=== PATIENT | female | born 1970 | race Caucasian/White ===

== ENCOUNTER → 2016-09-04 | Outpatient (CLI) | payer OTHER ==
--- NOTE | 2016-09-04 16:57 | CT ---
EXAMINATION TYPE: CT abdomen w con DATE OF EXAM: 09/04/2016 4:26 PM COMPARISON: NONE HISTORY: Patient complains of RUQ pain. CT DLP: 890.2 mGycm Automated exposure control for dose reduction was used. TECHNIQUE: Helical acquisition of images was performed from the lung bases through the top of iliac crest to include entire abdomen. CONTRAST: Performed with Oral Contrast and with IV Contrast, patient injected with 100 mL of Omnipaque 300. FINDINGS: LUNG BASES: Normal LIVER/GB: Liver is unremarkable. Gallbladder surgically absent PANCREAS: No significant abnormality is seen. SPLEEN: No significant abnormality is seen. ADRENALS: No significant abnormality is seen. KIDNEYS: No significant abnormality is seen. BOWEL: No significant abnormality is seen. There are some loops of bowel lacking oral contrast limit ing their evaluation. The appendix is not identified. LYMPH NODES: No abnormal adenopathy. OSSEOUS STRUCTURES: No significant abnormality is seen. IMPRESSION: UNREMARKABLE CT ABDOMEN
== END | disposition home or self-care (01) ==
LOC: RADCTMAIN 15:16
PROVIDERS: ATTEND Family Medicine
DX: R10.11 Right upper quadrant pain (principal)
CPT/HCPCS: 74160; Q9967

== ENCOUNTER 2018-01-02 12:37 | Observation (INO) | payer OTHER ==
[2018-01-02 13:06] VITALS: RESP 18
--- NOTE | 2018-01-02 14:19 | ED ---
General Adult HPI <Ezra Espinoza - Last Filed: 01/02/18 18:17> - General Source: patient, RN notes reviewed Mode of arrival: ambulatory Limitations: no limitations <Jhon Rodriguez - Last Filed: 01/02/18 18:24> - General Chief complaint: Shortness of Breath Stated complaint: SOB Time Seen by Provider: 01/02/18 13:32 - History of Present Illness Initial comments: 47-year-old female presents to the emergency department for a chief complaint of shortness of breath and bilateral leg swelling 2 days. Patient states she was on a diuretic for a couple weeks but it made her sick so she stopped that about a week ago. Patient states she has been short of breath before but this is worse so she wanted to get checked out. Patient has not been diagnosed with any cardiac diseases. Patient states that shortness of breath is exacerbated with exertion. Patient denies any chest pain or abdominal pain. Patient has an appointment with her primary care doctor in 4 days for this. Patient has no other complaints at this time including shortness of breath, chest pain, abdominal pain, nausea or vomiting, headache, or visual changes. (Jhon Rodriguez) - Related Data Home Medications Medication Instructions Recorded Confirmed Cyanocobalamin (Vitamin B-12) 1,000 mcg PO DAILY 01/02/18 01/02/18 [Vitamin B-12] Levothyroxine Sodium [Synthroid] 125 mcg PO DAILY 01/02/18 01/02/18 Omeprazole 20 mg PO BID 01/02/18 01/02/18 Sertraline [Zoloft] 100 mg PO HS 01/02/18 01/02/18 lamoTRIgine [lamoTRIgine ER] 50 mg PO HS 01/02/18 01/02/18 Allergies Allergy/AdvReac Type Severity Reaction Status Date / Time amoxicillin Allergy Rash/Hives Verified 01/02/18 14:12 levofloxacin [From Levaquin] Allergy Rash/Hives Verified 01/02/18 14:12 Penicillins Allergy Rash/Hives Verified 01/02/18 14:12 Review of Systems ROS Other: All systems not noted in ROS Statement are negative. <Ezra Espinoza - Last Filed: 01/02/18 18:17> ROS Other: All systems not noted in ROS Statement are negative. <Jhon Rodriguez - Last Filed: 01/02/18 18:24> ROS Statement: Those systems with pertinent positive or pertinent negative responses have been documented in the HPI. Past Medical History Past Medical History: GERD/Reflux, Thyroid Disorder History of Any Multi-Drug Resistant Organisms: None Reported Past Surgical History: Cholecystectomy, Orthopedic Surgery, Tubal Ligation Past Psychological History: Anxiety, Depression Smoking Status: Never smoker Past Alcohol Use History: None Reported Past Drug Use History: None Reported <Jhon Rodriguez - Last Filed: 01/02/18 18:24> General Exam Limitations: no limitations General appearance: alert, in no apparent distress Head exam: Present: atraumatic, normocephalic, normal inspection Eye exam: Present: normal appearance, PERRL, EOMI. Absent: scleral icterus, conjunctival injection, periorbital swelling ENT exam: Present: normal exam, mucous membranes moist Neck exam: Present: normal inspection, full ROM. Absent: tenderness, meningismus, lymphadenopathy Respiratory exam: Present: normal lung sounds bilaterally. Absent: respiratory distress, wheezes, rales, rhonchi, stridor Cardiovascular Exam: Present: regular rate, normal rhythm, normal heart sounds. Absent: systolic murmur, diastolic murmur, rubs, gallop, clicks Extremities exam: Present: other (Pedal pulse 2+ in the lower extremities bilaterally. Pitting edema 1+ in lower extremities bilaterally. No redness or cellulitic changes.). Absent: calf tenderness (No tenderness in the calves. No redness swelling or warmth in the calves.) <Jhon Rodriguez - Last Filed: 01/02/18 18:24> Vital Signs 01/02/18 01/02/18 01/02/18 13:03 16:06 17:23 Temperature 98.4 F Pulse Rate 64 48 L 61 Respiratory 18 18 18 Rate Blood Pressure 167/97 139/74 150/70 O2 Sat by Pulse 100 99 99 Oximetry EKG Findings - EKG Comments: EKG Findings:: Sinus bradycardia cardiac. Ventricular rate 53. MO interval 122. QRS 86. <Jhon Rodriguez - Last Filed: 01/02/18 18:24> Medical Decision Making - Lab Data Result diagrams: 01/02/18 15:15 01/02/18 15:15 <Ezra Espinoza - Last Filed: 01/02/18 18:17> - Lab Data Result diagrams: 01/02/18 15:15 01/02/18 15:15 <Jhon Rodriguez - Last Filed: 01/02/18 18:24> - Medical Decision Making Patient reevaluated by myself, Dr. Espinoza. Chart and results reviewed. Patient resting comfortably in bed. Patient states she has been having exertional dyspnea for the past month, worse the past few days. Patient states she is having minimal chest pressure. Patient updated on results and plan. Case was discussed in detail with Dr. Hurst, who will admit for Dr. Duncan. (Ezra Espinoza) 47-year-old female presents to the emergency department for a chief complaint of shortness of breath and bilateral leg swelling for 2 days. Patient states she has had similar occurrences in the past and was put on a diuretic but stopped that over a week ago due to it making her nauseous. Patient does not wear compression stockings. Patient states the shortness of breath is with exertion. Patient denies chest pain or abdominal pain. Pulse rate 61, respiratory rate 18, blood pressure 150/70 and patient is 99% on room air. CBC and CMP unremarkable. Cardiac panel within normal limits. D-dimer 0.46. Chest x-ray shows cardiac silhouette size and upper limits of normal. No acute cardiopulmonary process. No focal airspace opacity, pleural effusion, or pneumothorax seen. On reexamination patient is continuing to complain of a minimal pressure on her chest. She will be admitted and monitored in the hospital. (Jhon Rodriguez) - Lab Data Lab Results 01/02/18 01/02/18 01/02/18 Range/Units 15:00 15:15 15:15 WBC 5.7 (3.8-10.6) k/uL RBC 4.56 (3.80-5.40) m/uL Hgb 10.6 L (11.4-16.0) gm/dL Hct 33.8 L (34.0-46.0) % MCV 74.0 L (80.0-100.0) fL MCH 23.3 L (25.0-35.0) pg MCHC 31.5 (31.0-37.0) g/dL RDW 15.2 (11.5-15.5) % Plt Count 346 (150-450) k/uL Neutrophils % 57 % Lymphocytes % 32 % Monocytes % 6 % Eosinophils % 3 % Basophils % 1 % Neutrophils # 3.3 (1.3-7.7) k/uL Lymphocytes # 1.8 (1.0-4.8) k/uL Monocytes # 0.3 (0-1.0) k/uL Eosinophils # 0.2 (0-0.7) k/uL Basophils # 0.0 (0-0.2) k/uL Hypochromasia Moderate Microcytosis Slight PT (9.0-12.0) sec INR (<1.2) APTT (22.0-30.0) sec D-Dimer 0.46 (<0.60) mg/L FEU Sodium (137-145) mmol/L Potassium (3.5-5.1) mmol/L Chloride (98-107) mmol/L Carbon Dioxide (22-30) mmol/L Anion Gap mmol/L BUN (7-17) mg/dL Creatinine (0.52-1.04) mg/dL Est GFR (CKD-EPI)AfAm (>60 ml/min/1.73 sqM) Est GFR (CKD-EPI)NonAf (>60 ml/min/1.73 sqM) Glucose (74-99) mg/dL Calcium (8.4-10.2) mg/dL Total Bilirubin (0.2-1.3) mg/dL AST (14-36) U/L ALT (9-52) U/L Alkaline Phosphatase (38-126) U/L Total Creatine Kinase 160 H (30-135) U/L CK-MB (CK-2) 1.7 (0.0-2.4) ng/mL CK-MB (CK-2) Rel Index 1.1 Troponin I <0.012 (0.000-0.034) ng/mL NT-Pro-B Natriuret Pep pg/mL Total Protein (6.3-8.2) g/dL Albumin (3.5-5.0) g/dL 01/02/18 01/02/18 01/02/18 Range/Units 15:15 15:15 15:15 WBC (3.8-10.6) k/uL RBC (3.80-5.40) m/uL Hgb (11.4-16.0) gm/dL Hct (34.0-46.0) % MCV (80.0-100.0) fL MCH (25.0-35.0) pg MCHC (31.0-37.0) g/dL RDW (11.5-15.5) % Plt Count (150-450) k/uL Neutrophils % % Lymphocytes % % Monocytes % % Eosinophils % % Basophils % % Neutrophils # (1.3-7.7) k/uL Lymphocytes # (1.0-4.8) k/uL Monocytes # (0-1.0) k/uL Eosinophils # (0-0.7) k/uL Basophils # (0-0.2) k/uL Hypochromasia Microcytosis PT 9.7 (9.0-12.0) sec INR 1.0 (<1.2) APTT 24.5 (22.0-30.0) sec D-Dimer (<0.60) mg/L FEU Sodium 141 (137-145) mmol/L Potassium 3.7 (3.5-5.1) mmol/L Chloride 105 (98-107) mmol/L Carbon Dioxide 26 (22-30) mmol/L Anion Gap 10 mmol/L BUN 15 (7-17) mg/dL Creatinine 0.65 (0.52-1.04) mg/dL Est GFR (CKD-EPI)AfAm >90 (>60 ml/min/1.73 sqM) Est GFR (CKD-EPI)NonAf >90 (>60 ml/min/1.73 sqM) Glucose 88 (74-99) mg/dL Calcium 8.7 (8.4-10.2) mg/dL Total Bilirubin 0.5 (0.2-1.3) mg/dL AST 32 (14-36) U/L ALT 38 (9-52) U/L Alkaline Phosphatase 104 (38-126) U/L Total Creatine Kinase (30-135) U/L CK-MB (CK-2) (0.0-2.4) ng/mL CK-MB (CK-2) Rel Index Troponin I (0.000-0.034) ng/mL NT-Pro-B Natriuret Pep 572 pg/mL Total Protein 6.8 (6.3-8.2) g/dL Albumin 3.9 (3.5-5.0) g/dL Disposition <Ezra Espinoza - Last Filed: 01/02/18 18:17> Is patient prescribed a controlled substance at d/c from ED?: No Time of Disposition: 18:24 <Jhon Rodriguez - Last Filed: 01/02/18 18:24> Clinical Impression: Shortness of breath, Chest pressure Disposition: HOME SELF-CARE Condition: Good Referrals: Pato Duncan MD [Primary Care Provider] - 1-2 days
--- NOTE | 2018-01-02 15:29 | XR ---
EXAMINATION TYPE: XR chest 2V DATE OF EXAM: 01/02/2018 COMPARISON: NONE HISTORY: Shortness of breath. TECHNIQUE: Frontal and lateral views of the chest are obtained. FINDINGS: There is no focal air space opacity, pleural effusion, or pneumothorax seen. The cardiac silhouette size is upper limits of normal. The osseous structures are intact. Minimal multilevel de generative changes of the thoracic spine are noted. IMPRESSION: No acute cardiopulmonary process.
[2018-01-02 15:30] LABS: Basophils % (A) 1 %; Eosinophils # (A) 0.2 k/uL (0-0.7); Eosinophils % (A) 3 %; HCT 33.8 % (34.0-46.0); HGB 10.6 gm/dL (11.4-16.0); Hypochromasia Moderate; Lymphocytes # (A) 1.8 k/uL (1.0-4.8); Lymphocytes % (A) 32 %; MCH 23.3 pg (25.0-35.0); MCHC 31.5 g/dL (31.0-37.0); Mean Platelet Volume 6.9; Microcytosis Slight; Monocytes # (A) 0.3 k/uL (0-1.0); Monocytes % (A) 6 %; Neutrophils # (A) 3.3 k/uL (1.3-7.7); Neutrophils % (A) 57 %; Platelet Count 346 k/uL (150-450); RBC 4.56 m/uL (3.80-5.40); RDW 15.2 % (11.5-15.5); WBC 5.7 k/uL (3.8-10.6)
[2018-01-02 15:38] LABS: Partial Thromboplastin Time 24.5 sec (22.0-30.0); Prothrombin Time 9.7 sec (9.0-12.0)
[2018-01-02 15:42] LABS: ALT 38 U/L (9-52); AST 32 U/L (14-36); Albumin 3.9 g/dL (3.5-5.0); Alkaline Phosphatase 104 U/L (38-126); Anion Gap 10 mmol/L; Blood Urea Nitrogen 15 mg/dL (7-17); Calcium 8.7 mg/dL (8.4-10.2); Carbon Dioxide 26 mmol/L (22-30); Chloride 105 mmol/L (98-107); Glucose 88 mg/dL (74-99); Potassium 3.7 mmol/L (3.5-5.1); Sodium 141 mmol/L (137-145); Total Bilirubin 0.5 mg/dL (0.2-1.3); Total Protein 6.8 g/dL (6.3-8.2)
[2018-01-02 15:51] LABS: Creatine Kinase 160 U/L (30-135)
[2018-01-02 16:04] LABS: Creatine Kinase MB 1.7 ng/mL (0.0-2.4); Troponin I <0.012 ng/mL (0.000-0.034)
[2018-01-02] MEDS ORDERED: NITROGLYCERIN SL TABS 0.4 MG TAB SUBLINGUAL PRN (18:13)
[2018-01-02] MEDS ORDERED: ASPIRIN 81 MG PO STA (18:13)
[2018-01-02] MEDS ORDERED: IBUPROFEN 600 MG TAB PO STA (18:21)
[2018-01-02 20:31] VITALS: BMI 41.8
[2018-01-02] MEDS ORDERED: lamoTRIgine 25 MG TAB PO SCH (21:00)
[2018-01-02] MEDS ORDERED: SERTRALINE 100 MG TAB PO SCH (21:00)
[2018-01-02 22:08] LABS: Creatine Kinase 126 U/L (30-135)
[2018-01-02] MEDS: PANTOPRAZOLE 40 MG TABLET PO SCH (22:19)
[2018-01-02 22:20] LABS: Creatine Kinase MB 1.5 ng/mL (0.0-2.4); Troponin I <0.012 ng/mL (0.000-0.034)
[2018-01-03 04:23] LABS: Cholesterol 151 mg/dL (<200); HDL Cholesterol 44 mg/dL (40-60); LDL Cholesterol,Calculated 84 mg/dL (0-99); Triglycerides 113 mg/dL (<150)
[2018-01-03 04:36] LABS: Creatine Kinase 105 U/L (30-135)
[2018-01-03 04:48] LABS: Troponin I <0.012 ng/mL (0.000-0.034)
[2018-01-03] MEDS ORDERED: LEVOTHYROXINE 125 MCG TAB PO SCH (06:30)
[2018-01-03] MEDS ORDERED: CYANOCOBALAMIN 500 MCG TAB PO SCH (09:00)
[2018-01-03] MEDS ORDERED: ASPIRIN 325 MG TAB PO SCH (09:00)
--- NOTE | 2018-01-03 09:57 | P.CRDCN ---
History of Present Illness History of present illness: 47 year old female presenting with shortness of breath for the last several days. The story is quite weak. She feels puffy all over and she was treated with Lasix which she did not tolerate. She also complains of a vague discomfort in the chest midsternal fairly constant. Nonradiating Review of systems: No fever chills or rigors, no cough, phlegm or expectoration , no nausea, vomiting or diarrhea, no hematuria, dysuria, no musculoskeletal complaints, no strokes or seizures, no skin lesions. Home medications include levothyroxine and omeprazole Zoloft lamotrigine and B12 ALLERGIES to penicillin and Levaquin Past medical history of hypothyroidism and GERD, depression, admits to salt indiscretion Past surgical history cholecystectomy orthopedic surgery and tubal ligation Social history. She denies history of smoking negative and product use and alcohol use Family history of hypertension On examination she is afebrile heart rate in the 50s and 60s blood pressure 116/ 67 mmHg but when she came in her blood pressure was consistently elevated for quite a while Initially her blood pressure was 150/70 mmHg 147/58 mmHg Heart sounds S1 and S2 are normal Breath sounds are clear no rhonchi no crackles No JVD thymidylate carotid bruits. She states she has a nodule in the neck which is being evaluated Abdomen soft nontender No lower extremity edema Patient is lying comfortably in bed no distress of any kind Twelve-lead ECG shows sinus rhythm 53 beats a minute normal ST segments Chest x-ray is normal Labs are reviewed she is anemic 10.6, d-dimer is normal Electrolytes are normal Cardiac enzymes are normal LDL 84 Impression Patient presenting with shortness of breath on exertion, NT proBNP 572, atypical chest discomfort feeling puffy all over initial blood pressures were elevated cardiac enzymes and EKG were normal, d-dimer is normal She does have anemia Nonsmoker, nondiabetic LDL 84 Increased BMI greater than 40 Suggest No salt diet Home blood pressure monitoring Follow-up with Dr. Reaves in 2 weeks Anemia workup. Per primary care physician. The anemia may be the cause of her symptoms and the cause of her anemia could be the reason why she has such nonspecific complaints 2-D echo and Doppler study today tsh, cortisol If normal patient may go home from a cardiac standpoint and follow with Dr. 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, lump in throat at voice box-u/s friday scheduled at [facility] History of Any Multi-Drug Resistant Organisms: None Reported Past Surgical History: Appendectomy, Cholecystectomy, Orthopedic Surgery, Tubal Ligation Additional Past Surgical History / Comment(s): Torn ACL-right surgery Past Anesthesia/Blood Transfusion Reactions: No Reported Reaction Past Psychological History: Anxiety, Depression Smoking Status: Former smoker Past Alcohol Use History: None Reported Past Drug Use History: None Reported - Past Family History Father Family Medical History: Congestive Heart Failure (CHF), Hypertension Mother Family Medical History: COPD, Thyroid Disorder Medications and Allergies Home Medications Medication Instructions Recorded Confirmed Type Cyanocobalamin (Vitamin B-12) 1,000 mcg PO DAILY 01/02/18 01/02/18 History [Vitamin B-12] Levothyroxine Sodium [Synthroid] 125 mcg PO DAILY 01/02/18 01/02/18 History RX: Omeprazole 20 mg PO BID 01/02/18 01/02/18 History Sertraline [Zoloft] 100 mg PO HS 01/02/18 01/02/18 History lamoTRIgine [lamoTRIgine ER] 50 mg PO HS 01/02/18 01/02/18 History Allergies Allergy/AdvReac Type Severity Reaction Status Date / Time amoxicillin Allergy Rash/Hives Verified 01/02/18 20:03 levofloxacin [From Levaquin] Allergy Rash/Hives Verified 01/02/18 20:03 Penicillins Allergy Rash/Hives Verified 01/02/18 20:03 Physical Exam Vitals: Vital Signs Temp Pulse Pulse Resp BP BP Pulse Ox 01/03/18 07:30 98.0 F 61 18 116/67 96 01/03/18 03:50 54 L 18 01/02/18 23:59 58 L 18 01/02/18 20:00 18 01/02/18 19:50 48 L 18 118/66 100 01/02/18 19:19 98.4 F 68 18 147/58 97 01/02/18 18:54 68 18 147/58 97 01/02/18 17:23 61 18 150/70 99 01/02/18 16:06 48 L 18 139/74 99 01/02/18 13:03 98.4 F 64 18 167/97 100 Intake and Output 01/02/18 01/03/18 01/03/18 22:59 06:59 14:59 Intake Total 400 Balance 400 Intake: Oral 400 Other: Voiding Method Toilet Toilet Toilet # Voids 1 2 Weight 97.069 kg Results 01/02/18 15:15 01/02/18 15:15 Cardiac Enzymes 01/02/18 01/02/18 01/02/18 Range/Units 15:15 15:15 21:11 AST 32 (14-36) U/L CK-MB (CK-2) 1.7 1.5 (0.0-2.4) ng/mL Troponin I <0.012 <0.012 (0.000-0.034) ng/mL 01/03/18 Range/Units 03:41 AST (14-36) U/L CK-MB (CK-2) 1.0 (0.0-2.4) ng/mL Troponin I <0.012 (0.000-0.034) ng/mL Coagulation 01/02/18 Range/Units 15:15 PT 9.7 (9.0-12.0) sec APTT 24.5 (22.0-30.0) sec Lipids 01/03/18 Range/Units 03:41 Triglycerides 113 (<150) mg/dL Cholesterol 151 (<200) mg/dL HDL Cholesterol 44 (40-60) mg/dL CBC 01/02/18 Range/Units 15:15 WBC 5.7 (3.8-10.6) k/uL RBC 4.56 (3.80-5.40) m/uL Hgb 10.6 L (11.4-16.0) gm/dL Hct 33.8 L (34.0-46.0) % Plt Count 346 (150-450) k/uL Comprehensive Metabolic Panel 01/02/18 Range/Units 15:15 Sodium 141 (137-145) mmol/L Potassium 3.7 (3.5-5.1) mmol/L Chloride 105 (98-107) mmol/L Carbon Dioxide 26 (22-30) mmol/L BUN 15 (7-17) mg/dL Creatinine 0.65 (0.52-1.04) mg/dL Glucose 88 (74-99) mg/dL Calcium 8.7 (8.4-10.2) mg/dL AST 32 (14-36) U/L ALT 38 (9-52) U/L Alkaline Phosphatase 104 (38-126) U/L Total Protein 6.8 (6.3-8.2) g/dL Albumin 3.9 (3.5-5.0) g/dL Current Medications Generic Name Dose Route Start Last Admin Trade Name Freq PRN Reason Stop Dose Admin Aspirin 325 mg 01/03/18 09:00 Aspirin PO DAILY DAVON Cyanocobalamin 1,000 mcg 01/03/18 09:00 Vitamin B-12 PO DAILY DAVON Lamotrigine 50 mg 01/02/18 21:00 01/02/18 22:19 Lamictal PO 50 mg HS DAVON Administration Levothyroxine Sodium 125 mcg 01/03/18 06:30 01/03/18 06:47 Synthroid PO 125 mcg DAILY@0630 DAVON Administration Nitroglycerin 0.4 mg 01/02/18 18:13 Nitrostat SUBLINGUAL Q5M PRN Chest Pain Pantoprazole Sodium 40 mg 01/02/18 21:00 01/02/18 22:19 Protonix PO 40 mg AC-BID DAVON Administration Sertraline HCl 100 mg 01/02/18 21:00 01/02/18 22:19 Zoloft PO 100 mg HS DAVON Administration Intake and Output 01/02/18 01/03/18 01/03/18 22:59 06:59 14:59 Intake Total 400 Balance 400 Intake: Oral 400 Other: Voiding Method Toilet Toilet Toilet # Voids 1 2 Weight 97.069 kg 01/02/18 15:15 01/02/18 15:15
[2018-01-03] MEDS: PANTOPRAZOLE 40 MG TABLET PO SCH (10:29)
[2018-01-03 11:48] VITALS: BP 157/91; PULSE 63; TEMP 98.3
--- NOTE | 2018-01-03 12:23 | HP ---
HISTORY AND PHYSICAL HISTORY OF PRESENT ILLNESS: Wilma Ortiz is a 47-year-old female who presented to the ER with a feeling of shortness of breath. This has been associated with some chest tightness. She also had a feeling of swelling in her legs. She was on a diuretic, started about a few weeks ago, was not able to tolerate this and discontinued it. She denies any fever, chills and riders. She does have a history of snoring, possible obstructive sleep apnea, but has not been evaluated for that. PAST MEDICAL HISTORY: Positive for gastroesophageal reflux disease, thyroid disorder in the form of hypothyroidism, history of cholecystectomy, tubal ligation, anxiety, depression. SOCIAL HISTORY: Patient is a never smoker. FAMILY HISTORY: Noncontributory. MEDICATIONS: Prior to admission were Synthroid, omeprazole, Zoloft, and lamotrigine ER. ALLERGIC: TO AMOXICILLIN, LEVAQUIN, AND OTHER PENICILLINS. REVIEW OF SYSTEMS: Is noncontributory other than for what is described in history of present illness and past medical history. PHYSICAL EXAMINATION: VITAL SIGNS: Blood pressure is 157/91, respiratory rate of 18, pulse rate of 63, temperature 98.3, O2 saturation on room air is 94%. Her heart rate was 54. HEENT reveals pupils are equal. Mallampati is 3. CHEST reveals occasional crackles. CARDIOVASCULAR SYSTEM reveals an S1, S2. ABDOMEN: Soft. EXTREMITIES: There is 1+ to 2+ pedal edema. LABORATORY DATA: White count is 5.7, hemoglobin of 10.6, sodium 141, potassium 3.7, chloride 105, bicarb 26, BUN 15, creatinine of 0.65. CPK of 160, MB of 1.7. NT proBNP of 572, albumin of 3.9, cortisols 8, TSH 3.20. Chest x-ray shows cardiac silhouette being at the upper limit of normal. IMPRESSION: At this time: 1. Congestive heart failure with acute exacerbation in part due to patient discontinuing diuretic. 2. Hypertension. 3. Obesity. 4. Possible obstructive sleep apnea, which may be contributing to her overall symptomatology. 5. Chest pain. At this point in time await final recommendations by Cardiology. Check echo of the heart. Increase her activity level. Strongly recommend evaluation for sleep apnea which may be contributing to her overall symptomatology. Depending on how she does, we should make further changes to her care. She was also counseled regarding her condition and this approach and has a fair understanding of her plan of care. JOHN / LIZZY: [id number] /
--- NOTE | 2018-01-03 13:16 | ECHOF ---
Referral Reason:SOB MEASUREMENTS -------- HEIGHT: 152.4 cm WEIGHT: 97.1 kg BP: IVSd: 1.0 cm (0.6 - 1.1) LVIDd: 4.3 cm (3.9 - 5.3) LVPWd: 1.4 cm (0.6 - 1.1) IVSs: 1.3 cm LVIDs: 3.6 cm LVPWs: 1.3 cm LA Diam: 3.0 cm (2.7 - 3.8) RVIDd: 2.7 cm (< 3.3) LAESV Index (A-L): 35.53 ml/m Ao Diam: 3.5 cm (2.0 - 3.7) LA Diam: 4.0 cm (2.7 - 3.8) AV Cusp: 2.1 cm (1.5 - 2.6) EPSS: 0.6 cm MV E Wai: 0.83 m/s MV DecT: 200 ms MV A Wai: 0.78 m/s MV E/A Ratio: 1.06 RAP: 5.00 mmHg RVSP: 32.75 mmHg MV EF SLOPE: 96.45 mm/s (70 - 150) MV EXCURSION: 17.01 mm (> 18.000) FINDINGS -------- Sinus rhythm. This was a technically adequate study. The left ventricular size is normal. There is mild concentric left ventricular hypertrophy. Overa ll left ventricular systolic function is low-normal with, an EF between 50 - 55 %. The right ventricle is normal in size. The left atrial size is normal. LA is midly dilated 29-33ml/m2. The right atrial size is normal. The aortic valve is trileaflet, and appears structurally normal. No aortic stenosis or regurgitation. Mild mitral annular calcification present. Mild mitral regurgitation is present. Mild tricuspid regurgitation present. There is no evidence of pulmonary hypertension. The right v entricular systolic pressure, as measured by Doppler, is 32.75mmHg. Trace/mild (physiologic) pulmonic regurgitation. The aortic root size is normal. There is no pericardial effusion. CONCLUSIONS -------- 1. The left ventricular size is normal. 2. There is mild concentric left ventricular hypertrophy. 3. Overall left ventricular systolic function is low-normal with, an EF between 50 - 55 %. 4. The right ventricle is normal in size. 5. The left atrial size is normal. 6. LA is midly dilated 29-33ml/m2. 7. The right atrial size is normal. 8. The aortic valve is trileaflet, and appears structurally normal. No aortic stenosis or regurgitati on. 9. Mild mitral annular calcification present. 10. Mild mitral regurgitation is present. 11. Mild tricuspid regurgitation present. 12. There is no evidence of pulmonary hypertension. 13. The right ventricular systolic pressure, as measured by Doppler, is 32.75mmHg. 14. Trace/mild (physiologic) pulmonic regurgitation. 15. The aortic root size is normal. 16. There is no pericardial effusion. MEAT PACKER: Beatriz Montes RDCS
== END 2018-01-03 15:10 | disposition home or self-care (01) ==
LOC: EC 12:37 → 3SUR 18:18
PROVIDERS: ADMIT Internal Medicine Sleep Medicine; ATTEND Internal Medicine Sleep Medicine
DX: R07.89 Other chest pain (principal); E03.9 Hypothyroidism, unspecified; K21.9 Gastro-esophageal reflux disease without esophagitis; F32.9 Major depressive disorder, single episode, unspecified; D64.9 Anemia, unspecified; E66.9 Obesity, unspecified; Z90.49 Acquired absence of other specified parts of digestive tract; Z88.1 Allergy status to other antibiotic agents; Z88.0 Allergy status to penicillin; Z82.49 Family history of ischemic heart disease and other diseases of the circulatory system; Z79.890 Hormone replacement therapy; Z79.899 Other long term (current) drug therapy; Z87.891 Personal history of nicotine dependence; Z82.5 Family history of asthma and other chronic lower respiratory diseases; Z68.41 Body mass index [BMI] 40.0-44.9, adult
CPT/HCPCS: 99285; 36415; 93005; 93306; 85379; 83880; 80061; 80053; 84443; 82533; 82550 ×2; 82553 ×2; 84484 ×2; 85025; 85610; 85730; 71046; G0378 ×2

== ENCOUNTER → 2018-01-05 | Outpatient (CLI) | payer OTHER ==
--- NOTE | 2018-01-05 15:14 | US ---
EXAMINATION TYPE: US st tissue neck DATE OF EXAM: 01/05/2018 COMPARISON: TECHNIQUE: Targeted ultrasound examination at the site of palpable area along the midline anterior ne ck CLINICAL HISTORY: 47-year-old female R22.1 Localized swelling. Pt states palpable lump midline anteri or neck Findings: Highway Truck Driver notes: At pt's palpable lump midline neck- solid, isoechoic area= 0.8 x 0.6 x 0.9 cm/ vas cularity present/ appears separate from thyroid/ bilateral thyroid incidentally mildly heterogenous. IMPRESSION: Indeterminate 9 mm lesion at the palpable site, midline anterior neck may be located along the strap musculature or in the subcutaneous fat. Ectopic thyroid tissue and an area of fat necrosis are some d ifferential considerations. Correlate clinically as to the need for further evaluation with CT soft t issue neck versus short interval ultrasound follow-up.
== END | disposition home or self-care (01) ==
LOC: RADUSWWP 13:55
PROVIDERS: ATTEND Family Medicine
DX: R22.1 Localized swelling, mass and lump, neck (principal)
CPT/HCPCS: 76536

== ENCOUNTER 2018-01-30 09:52 | Day surgery (SDC) | payer OTHER ==
[2018-01-27 17:18] VITALS: BMI 42.0
[~2018-01-30 09:52] MED LIST: LACTATED RINGERS 1,000 ML IV SCH
[2018-01-30 10:29] VITALS: RESP 16; TEMP 99
[2018-01-30] MEDS ORDERED: PROPOFOL 10 MG/ML 20 ML VIAL IV ONE (11:13)
[2018-01-30] MEDS ORDERED: LIDOCAINE 1% INJ 10MG/ML (20 ML MDV) ONE (11:13)
--- NOTE | 2018-01-30 11:17 | P.GSHP ---
History of Present Illness H&P Date: 01/30/18 Chief Complaint: anemia, GERD, rectal bleeding is a 47-year-old female for from Dr. Pato Gar. Patient presents today for EGD colonoscopy. She's had issues with anemia. Patient's had some intermittent rectal bleeding. He has a history of a hiatal hernia and severe GERD. 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 Lump in throat at voice box, SOME DYSPHAGIA; TOLD HIATAL HERNIA ON PREV EGD. "ANEMIC, RBC'S SMALL." History of Any Multi-Drug Resistant Organisms: None Reported Past Surgical History: Appendectomy, Cholecystectomy, Orthopedic Surgery, Tubal Ligation Additional Past Surgical History / Comment(s): Torn ACL-Right KNEE Surgery. EGD Past Anesthesia/Blood Transfusion Reactions: No Reported Reaction Smoking Status: Former smoker - Past Family History Father Family Medical History: Congestive Heart Failure (CHF), Hypertension Mother Family Medical History: COPD, Thyroid Disorder Medications and Allergies Home Medications Medication Instructions Recorded Confirmed Type Cyanocobalamin (Vitamin B-12) 1,000 mcg PO DAILY 01/02/18 01/30/18 History [Vitamin B-12] Levothyroxine Sodium [Synthroid] 125 mcg PO DAILY 01/02/18 01/30/18 History Omeprazole 20 mg PO BID 01/02/18 01/30/18 History Sertraline [Zoloft] 100 mg PO HS 01/02/18 01/30/18 History lamoTRIgine [lamoTRIgine ER] 50 mg PO HS 01/02/18 01/30/18 History Ferrous Sulfate [Feosol] 325 mg PO DAILY 01/27/18 01/30/18 History Allergies Allergy/AdvReac Type Severity Reaction Status Date / Time amoxicillin Allergy Rash/Hives Verified 01/30/18 10:30 levofloxacin [From Levaquin] Allergy Rash/Hives Verified 01/30/18 10:30 Penicillins Allergy Rash/Hives Verified 01/30/18 10:30 Surgical - Exam Vital Signs Temp Pulse Resp BP Pulse Ox 99.0 F 59 L 16 130/83 95 01/30/18 10:25 01/30/18 10:25 01/30/18 10:25 01/30/18 10:25 01/30/18 10:25 - General well developed, no distress - Eyes PERRL - ENT normal pinna - Neck no masses - Respiratory normal expansion - Cardiovascular Rhythm: regular - Abdomen Abdomen: soft, non tender Assessment and Plan Assessment: GERD, anemia, rectal bleeding. We'll perform EGD and colonoscopy.
--- NOTE | 2018-01-30 11:41 | P.OP ---
Date of Procedure: 01/30/18 Preoperative Diagnosis: anemia GERD GI bleed Postoperative Diagnosis: antral gastritis Hiatal hernia Esophagitis Procedure(s) Performed: EGD Colonoscopy Anesthesia: MAC Surgeon: Mando Serrano Pathology: other (antrum, esophagus) Condition: stable Disposition: PACU Description of Procedure: patient's placed on the endoscopy table in the lateral position. IV sedation. The gastroscope placed oropharynx passed in the esophagus and stomach. Scope was then placed through the pylorus. The first and second portion of the duodenum appeared normal. Scope was then brought back the antrum this was mildly inflamed. A biopsies performed. The scope was then retroflexed the meters stomach appeared normal. There was a moderate size hiatal hernia. The GE junction was at 380 cm. The distal esophagus appeared mildly inflamed a biopsies. The proximal esophagus appeared normal. Scope withdrawn for patient. Next digital rectal exam was performed, there were some minimal internal hemorrhoids. The possible colonoscope was then placed patient anus passed throughout the entire colon. The ileocecal valve was visualized. The cecum, ascending and transverse colon appeared normal. In the left colon there was a small polyp seen this removed the forcep. Scope was then brought back the sigmoid colon this appeared normal. the rectum appeared normal. Scope was withdrawn for patient
[2018-01-30 12:05] VITALS: BP 148/93; PULSE 59
--- NOTE | 2018-02-05 19:58 | CDI ---
Outpatient Documentation Clarification Form Date: 02/05/18 CDS/Media Librarian Name: Sirisha Ribeiro Phone: If any questions, call Elsa Rudolph [employer] T[employer] Cashier at [phone] Patient Name: Wilma Ortiz Admit Date: 01/30/18 Discharge Date: 01/30/18 ATTENTION: The [facility] Coding Staff appreciate your assistance in clarifying documentation. Please respond to the clarification below the line at the bottom and electronically sign. The [facility] Coding staff will review the response and follow-up if needed. Please note: Queries are made part of the Legal Health Record. If you have any questions, please contact the [employer] T[employer] Cashier. Dear Dr. Serrano What is the source of the GI bleed? Multiple coding resources that we are required to follow state that the physician should identify a source and the certified composites technician may not assume. Thank you for your kind consideration. MTDD
== END 2018-01-30 12:29 | disposition home or self-care (01) ==
LOC: ORWHC2ENDO 09:52
PROVIDERS: ATTEND Surgery
DX: K29.50 Unspecified chronic gastritis without bleeding (principal); K44.9 Diaphragmatic hernia without obstruction or gangrene; D12.4 Benign neoplasm of descending colon; K21.0 Gastro-esophageal reflux disease with esophagitis; K64.8 Other hemorrhoids; R13.10 Dysphagia, unspecified; K92.2 Gastrointestinal hemorrhage, unspecified; D64.9 Anemia, unspecified; E07.9 Disorder of thyroid, unspecified; I10 Essential (primary) hypertension; F41.9 Anxiety disorder, unspecified; F32.9 Major depressive disorder, single episode, unspecified; E66.01 Morbid (severe) obesity due to excess calories; Z68.41 Body mass index [BMI] 40.0-44.9, adult; Z87.891 Personal history of nicotine dependence; Z79.890 Hormone replacement therapy; Z79.899 Other long term (current) drug therapy; Z88.1 Allergy status to other antibiotic agents; Z88.0 Allergy status to penicillin
CPT/HCPCS: 81025; 88305; 45380; 43239; J2001; J2704

== ENCOUNTER 2018-05-16 21:15 | Emergency (ER) | payer OTHER ==
[2018-05-16] MEDS ORDERED: methylPREDNISolone SOD SUCCI 125 MG/2 ML VIAL IV STA (21:36)
[2018-05-16] MEDS ORDERED: IPRATROPIUM-ALBUTEROL 3 ML NEB INHALATION STA (21:36)
[2018-05-16] MEDS ORDERED: SODIUM CHLORIDE 0.9% 500 ML 500 ML IV ONE (21:36)
[2018-05-16] MEDS ORDERED: BENZONATATE 100 MG CAP PO STA (21:37)
--- NOTE | 2018-05-16 21:43 | ED ---
General Adult HPI - General Chief complaint: Upper Respiratory Infection Stated complaint: Chest congestion/SOB Time Seen by Provider: 05/16/18 21:28 Source: patient, family Mode of arrival: ambulatory Limitations: no limitations - History of Present Illness Initial comments: 47-year-old female patient presents to the emergency department today for complaints of cough and shortness of breath. Patient states that she's been sick for the last 4 days. States initially she had nasal congestion and cough but the nasal congestion has resolved. Patient states she is coughing up clear sputum. Patient states that she feels chest heaviness and then her lungs are full of fluid. States she has been wheezing. Patient states she does get short of breath with activity. The patient states that she has been achy and chilled but has not checked her temperature. Patient denies any use of tobacco. Denies any dizziness or weakness. Denies any rash. Denies any sick contacts or recent travel. Patient denies any recent abdominal pain, nausea, vomiting, diarrhea, constipation, back pain, numbness, tingling, dizziness, weakness, hematuria, dysuria, urinary urgency, urinary frequency, headache, visual changes, or any other complaints. - Related Data Home Medications Medication Instructions Recorded Confirmed Cyanocobalamin (Vitamin B-12) 1,000 mcg PO DAILY 01/02/18 02/12/18 [Vitamin B-12] Levothyroxine Sodium [Synthroid] 125 mcg PO DAILY 01/02/18 02/12/18 Omeprazole 20 mg PO BID 01/02/18 02/12/18 Sertraline [Zoloft] 100 mg PO HS 01/02/18 02/12/18 lamoTRIgine [lamoTRIgine ER] 50 mg PO HS 01/02/18 02/12/18 Ferrous Sulfate [Feosol] 325 mg PO DAILY 01/27/18 02/12/18 Previous Rx's Medication Instructions Recorded Albuterol Sulfate [Proair Hfa] 1 - 2 puff INHALATION Q6HR PRN #1 05/16/18 inhaler Benzonatate [Tessalon Perles] 100 mg PO TID #15 cap 05/16/18 predniSONE 50 mg PO DAILY #5 tablet 05/16/18 Allergies Allergy/AdvReac Type Severity Reaction Status Date / Time amoxicillin Allergy Rash/Hives Verified 05/16/18 21:25 levofloxacin [From Levaquin] Allergy Rash/Hives Verified 05/16/18 21:25 Penicillins Allergy Rash/Hives Verified 05/16/18 21:25 Review of Systems ROS Statement: Those systems with pertinent positive or pertinent negative responses have been documented in the HPI. ROS Other: All systems not noted in ROS Statement are negative. 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 Lump in throat at voice box, SOME DYSPHAGIA; ANEMIA, HIATAL HERNIA. History of Any Multi-Drug Resistant Organisms: None Reported Past Surgical History: Appendectomy, Cholecystectomy, Orthopedic Surgery, Tubal Ligation Additional Past Surgical History / Comment(s): Torn ACL-Right KNEE Surgery. EGD , COLONOSCOPY Past Anesthesia/Blood Transfusion Reactions: No Reported Reaction Past Psychological History: Anxiety, Bipolar, Depression Smoking Status: Former smoker Past Alcohol Use History: Rare Past Drug Use History: None Reported - Past Family History Father Family Medical History: Congestive Heart Failure (CHF), Hypertension Mother Family Medical History: COPD, Thyroid Disorder General Exam Limitations: no limitations General appearance: alert, in no apparent distress, other (This is a well- developed, well-nourished adult female patient in no acute distress. Vital signs upon presentation are temperature 99.8F, pulse 88, respirations 20, blood pressure 159/84, pulse ox 98% on room air.) Eye exam: Present: normal appearance, PERRL, EOMI. Absent: scleral icterus, conjunctival injection, periorbital swelling ENT exam: Present: normal exam, normal oropharynx, mucous membranes moist, TM's normal bilaterally Neck exam: Present: normal inspection. Absent: tenderness, meningismus, lymphadenopathy Respiratory exam: Present: rhonchi (Posterior lung sosa), other (Does appear short of breath). Absent: normal lung sounds bilaterally, respiratory distress , wheezes, rales, stridor Cardiovascular Exam: Present: regular rate, normal rhythm, normal heart sounds. Absent: systolic murmur, diastolic murmur, rubs, gallop, clicks GI/Abdominal exam: Present: soft, normal bowel sounds. Absent: distended, tenderness, guarding, rebound, rigid Neurological exam: Present: alert, oriented X3, CN II-XII intact Psychiatric exam: Present: normal affect, normal mood Skin exam: Present: warm, dry, intact, normal color. Absent: rash Course Vital Signs 05/16/18 05/16/18 21:21 21:57 Temperature 99.8 F H Pulse Rate 88 88 Respiratory 20 Rate Blood Pressure 159/84 O2 Sat by Pulse 98 Oximetry Medical Decision Making - Medical Decision Making 47-year-old female patient presented to the emergency department today for complaints of cough and shortness of breath 4 days. Physical examination did reveal rhonchi in the posterior lung sosa. Patient did appear mildly short of breath during exam. Vital signs are stable with oxygen saturation 100% on room air. Labs reviewed and are unremarkable. Chest x-ray showed no acute cardiopulmonary process. Did discuss results and findings with patient. Upon reevaluation she does report improvement symptoms after receiving medication in the department. Her symptoms are consistent with acute bronchitis. We will treat this with antitussives, steroids, and Pro Air inhaler. She is instructed to follow-up with her primary care physician for recheck in 1-2 days. Return parameters discussed in detail. She verbalizes understanding and agrees with this plan. - Lab Data Result diagrams: 05/16/18 22:00 05/16/18 22:00 Lab Results 05/16/18 05/16/18 05/16/18 Range/Units 22:00 22:00 22:00 WBC 11.4 H (3.8-10.6) k/uL RBC 4.96 (3.80-5.40) m/uL Hgb 12.8 (11.4-16.0) gm/dL Hct 39.9 (34.0-46.0) % MCV 80.4 (80.0-100.0) fL MCH 25.7 (25.0-35.0) pg MCHC 32.0 (31.0-37.0) g/dL RDW 15.3 (11.5-15.5) % Plt Count 304 (150-450) k/uL Neutrophils % 77 % Lymphocytes % 12 % Monocytes % 6 % Eosinophils % 3 % Basophils % 1 % Neutrophils # 8.7 H (1.3-7.7) k/uL Lymphocytes # 1.4 (1.0-4.8) k/uL Monocytes # 0.7 (0-1.0) k/uL Eosinophils # 0.3 (0-0.7) k/uL Basophils # 0.1 (0-0.2) k/uL PT (9.0-12.0) sec INR (<1.2) APTT (22.0-30.0) sec Sodium 138 (137-145) mmol/L Potassium 3.8 (3.5-5.1) mmol/L Chloride 104 (98-107) mmol/L Carbon Dioxide 25 (22-30) mmol/L Anion Gap 9 mmol/L BUN 10 (7-17) mg/dL Creatinine 0.58 (0.52-1.04) mg/dL Est GFR (CKD-EPI)AfAm >90 (>60 ml/min/1.73 sqM) Est GFR (CKD-EPI)NonAf >90 (>60 ml/min/1.73 sqM) Glucose 100 H (74-99) mg/dL Plasma Lactic Acid Spencer (0.7-2.0) mmol/L Calcium 8.9 (8.4-10.2) mg/dL Total Bilirubin 0.8 (0.2-1.3) mg/dL AST 23 (14-36) U/L ALT 24 (9-52) U/L Alkaline Phosphatase 104 (38-126) U/L Total Creatine Kinase 83 (30-135) U/L CK-MB (CK-2) 1.3 (0.0-2.4) ng/mL CK-MB (CK-2) Rel Index 1.6 Troponin I <0.012 (0.000-0.034) ng/mL Total Protein 6.8 (6.3-8.2) g/dL Albumin 3.8 (3.5-5.0) g/dL 05/16/18 05/16/18 Range/Units 22:00 22:00 WBC (3.8-10.6) k/uL RBC (3.80-5.40) m/uL Hgb (11.4-16.0) gm/dL Hct (34.0-46.0) % MCV (80.0-100.0) fL MCH (25.0-35.0) pg MCHC (31.0-37.0) g/dL RDW (11.5-15.5) % Plt Count (150-450) k/uL Neutrophils % % Lymphocytes % % Monocytes % % Eosinophils % % Basophils % % Neutrophils # (1.3-7.7) k/uL Lymphocytes # (1.0-4.8) k/uL Monocytes # (0-1.0) k/uL Eosinophils # (0-0.7) k/uL Basophils # (0-0.2) k/uL PT 9.8 (9.0-12.0) sec INR 1.0 (<1.2) APTT 25.1 (22.0-30.0) sec Sodium (137-145) mmol/L Potassium (3.5-5.1) mmol/L Chloride (98-107) mmol/L Carbon Dioxide (22-30) mmol/L Anion Gap mmol/L BUN (7-17) mg/dL Creatinine (0.52-1.04) mg/dL Est GFR (CKD-EPI)AfAm (>60 ml/min/1.73 sqM) Est GFR (CKD-EPI)NonAf (>60 ml/min/1.73 sqM) Glucose (74-99) mg/dL Plasma Lactic Acid Spencer 0.7 (0.7-2.0) mmol/L Calcium (8.4-10.2) mg/dL Total Bilirubin (0.2-1.3) mg/dL AST (14-36) U/L ALT (9-52) U/L Alkaline Phosphatase (38-126) U/L Total Creatine Kinase (30-135) U/L CK-MB (CK-2) (0.0-2.4) ng/mL CK-MB (CK-2) Rel Index Troponin I (0.000-0.034) ng/mL Total Protein (6.3-8.2) g/dL Albumin (3.5-5.0) g/dL - Radiology Data Radiology results: report reviewed, image reviewed Two-view x-ray of the chest is obtained. Heart mediastinum are normal. Lungs are clear. Diaphragm is normal. Bony thorax appears normal. Impression by Dr. Slater shows normal chest with no change. Disposition Clinical Impression: Acute bronchitis Disposition: HOME SELF-CARE Condition: Good Instructions: Upper Respiratory Infection (ED), Acute Bronchitis (ED) Additional Instructions: Take medications as directed. Follow-up through primary care physician for recheck in 1-2 days. Return here immediately for any new, worsening, or concerning symptoms. Prescriptions: Albuterol Sulfate [Proair Hfa] 1 - 2 puff INHALATION Q6HR PRN #1 inhaler PRN Reason: Shortness Of Breath Benzonatate [Tessalon Perles] 100 mg PO TID #15 cap predniSONE 50 mg PO DAILY #5 tablet Is patient prescribed a controlled substance at d/c from ED?: No Referrals: Pato Duncan MD [Primary Care Provider] - 1-2 days Time of Disposition: 23:29
[2018-05-16 22:22] LABS: Basophils # (A) 0.1 k/uL (0-0.2); Basophils % (A) 1 %; Eosinophils # (A) 0.3 k/uL (0-0.7); Eosinophils % (A) 3 %; HCT 39.9 % (34.0-46.0); HGB 12.8 gm/dL (11.4-16.0); Lymphocytes # (A) 1.4 k/uL (1.0-4.8); Lymphocytes % (A) 12 %; MCH 25.7 pg (25.0-35.0); MCV 80.4 fL (80.0-100.0); Mean Platelet Volume 6.5; Monocytes # (A) 0.7 k/uL (0-1.0); Monocytes % (A) 6 %; Neutrophils # (A) 8.7 k/uL (1.3-7.7); Neutrophils % (A) 77 %; Platelet Count 304 k/uL (150-450); RBC 4.96 m/uL (3.80-5.40); RDW 15.3 % (11.5-15.5); WBC 11.4 k/uL (3.8-10.6)
--- NOTE | 2018-05-16 22:23 | XR ---
EXAMINATION TYPE: XR chest 2V DATE OF EXAM: 05/16/2018 COMPARISON: 01/02/2018 HISTORY: Cough TECHNIQUE: Frontal and lateral views of the chest are obtained. FINDINGS: Heart and mediastinum are normal. Lungs are clear. Diaphragm is normal. Bony thorax appear s normal. IMPRESSION: Normal chest. No change.
[2018-05-16 22:24] LABS: ALT 24 U/L (9-52); AST 23 U/L (14-36); Albumin 3.8 g/dL (3.5-5.0); Alkaline Phosphatase 104 U/L (38-126); Anion Gap 9 mmol/L; Blood Urea Nitrogen 10 mg/dL (7-17); Calcium 8.9 mg/dL (8.4-10.2); Carbon Dioxide 25 mmol/L (22-30); Chloride 104 mmol/L (98-107); Glucose 100 mg/dL (74-99); Potassium 3.8 mmol/L (3.5-5.1); Sodium 138 mmol/L (137-145); Total Bilirubin 0.8 mg/dL (0.2-1.3); Total Protein 6.8 g/dL (6.3-8.2)
[2018-05-16 22:25] LABS: Partial Thromboplastin Time 25.1 sec (22.0-30.0); Prothrombin Time 9.8 sec (9.0-12.0)
[2018-05-16] MEDS ORDERED: IBUPROFEN 600 MG TAB PO STA (22:38)
[2018-05-16 22:39] LABS: Creatine Kinase 83 U/L (30-135)
[2018-05-16 22:53] LABS: Creatine Kinase MB 1.3 ng/mL (0.0-2.4); Troponin I <0.012 ng/mL (0.000-0.034)
[2018-05-16 23:46] VITALS: BP 140/83; PULSE 80; RESP 18; TEMP 99.3
== END 2018-05-16 23:45 | disposition home or self-care (01) ==
LOC: EC 21:15
DX: J20.9 Acute bronchitis, unspecified (principal); K21.9 Gastro-esophageal reflux disease without esophagitis; E07.9 Disorder of thyroid, unspecified; G62.9 Polyneuropathy, unspecified; D64.9 Anemia, unspecified; F41.9 Anxiety disorder, unspecified; F32.9 Major depressive disorder, single episode, unspecified; Z87.891 Personal history of nicotine dependence; Z82.49 Family history of ischemic heart disease and other diseases of the circulatory system; Z82.5 Family history of asthma and other chronic lower respiratory diseases; Z79.899 Other long term (current) drug therapy; Z88.0 Allergy status to penicillin; Z88.1 Allergy status to other antibiotic agents
CPT/HCPCS: 36415; 94640; 80053; 82550; 82553; 83605; 84484; 85025; 85610; 85730; 87040; 71046; 99285; 96374; 96361; J2930

== ENCOUNTER → 2018-12-01 | Outpatient (CLI) | payer BC ==
--- NOTE | 2018-12-01 16:11 | XR ---
EXAMINATION TYPE: XR ankle complete LT DATE OF EXAM: 12/01/2018 CLINICAL HISTORY: Left ankle pain TECHNIQUE: Frontal, lateral and oblique images of the left ankle are obtained. COMPARISON: None. FINDINGS: There is no acute fracture/dislocation evident in the left ankle. The ankle mortise appea rs within normal limits. Small plantar heel spur is noted. The overlying soft tissues demonstrate mi ld generalized soft tissue swelling around the left ankle. IMPRESSION: Mild generalized soft tissue swelling surrounding the left ankle with no acute fracture o r dislocation in the left ankle.
== END | disposition home or self-care (01) ==
LOC: RADXRMAIN 14:48
PROVIDERS: ATTEND Family Medicine
DX: M79.89 Other specified soft tissue disorders (principal)

== ENCOUNTER → 2019-01-27 | Outpatient (CLI) | payer BC, OTHER ==
--- NOTE | 2019-01-27 22:39 | MR ---
EXAMINATION TYPE: MR knee RT wo con DATE OF EXAM: 01/27/2019 COMPARISON: Outside right knee x-ray 1 week ago. HISTORY: Pain in right knee per order. Locking and swelling for over 2 months with history of prior s urgery per patient. TECHNIQUE: Multiplanar, multisequence images of the knee is performed without IV contrast. FINDINGS: MEDIAL MENISCUS: Anterior and posterior horns are intact without tear. LATERAL MENISCUS: Anterior and posterior horns are intact without tear. CRUCIATE LIGAMENTS: The posterior cruciate ligament is intact and unremarkable. There is artifact fro m prior anterior cruciate ligament repair surgery with repaired tendon felt intact. COLLATERAL LIGAMENTS: The medial collateral ligament and lateral collateral ligament complex are inta ct and unremarkable. EXTENSOR MECHANISM: Visualized quadriceps and patellar tendons are intact. EFFUSION: No significant suprapatellar joint effusion. POPLITEAL CYST: No popliteal/pennington cyst. TRICOMPARTMENT SPACES: Mild to moderate narrowing patellofemoral compartment is present. There is mil d narrowing and spurring medial and lateral tibiofemoral compartments. CARTILAGE: Chondromalacia patella is present with thinning of articular cartilage along posterior pat ellar pole. BONE MARROW SIGNAL: Heterogeneity consistent with red marrow reconversion. No suspicious edema. OTHER: No additional significant abnormality is appreciated. IMPRESSION: 1. Evidence of prior ACL repair surgery. No recurrent tear. No new meniscal or ligamentous tear. 2. Mild to moderate tricompartment degenerative changes most prominent in the patellofemoral compartm ent as detailed above.
== END | disposition home or self-care (01) ==
LOC: RADMRIMAIN 20:56
PROVIDERS: ATTEND Orthopaedic Surgery
DX: M17.11 Unilateral primary osteoarthritis, right knee (principal)

== ENCOUNTER 2019-02-07 13:02 | Emergency (ER) | payer BC, OTHER ==
[2019-02-07 13:42] VITALS: BP 120/86; PULSE 73; RESP 18; TEMP 98.1
--- NOTE | 2019-02-07 14:31 | ED ---
General Adult HPI - General Chief complaint: Extremity Injury, Lower Stated complaint: Leg pain Time Seen by Provider: 02/07/19 14:06 Source: patient Mode of arrival: ambulatory Limitations: no limitations - History of Present Illness Initial comments: Patient is a 48-year-old female presents emergency Department with right knee pain. Patient reports 2 days ago she was running around the house when she heard a "pop"and suddenly developed pain in the right knee. Patient reports the knee is giving out. Patient reports throbbing pain that is alleviated with rest but exacerbated once she starts moving. Patient reports full range of motion. Patient reports pain has not resolved since the incident occurred. Patient denies taking medication to alleviate the symptoms. Patient denies edema, erythema or skin discoloration. Patient did have ACL reconstruction surgery on the right knee. - Related Data Home Medications Medication Instructions Recorded Confirmed Cyanocobalamin (Vitamin B-12) 1,000 mcg PO DAILY 01/02/18 02/12/18 [Vitamin B-12] Levothyroxine Sodium [Synthroid] 125 mcg PO DAILY 01/02/18 02/12/18 Omeprazole 20 mg PO BID 01/02/18 02/12/18 Sertraline [Zoloft] 100 mg PO HS 01/02/18 02/12/18 lamoTRIgine [lamoTRIgine ER] 50 mg PO HS 01/02/18 02/12/18 Ferrous Sulfate [Feosol] 325 mg PO DAILY 01/27/18 02/12/18 Previous Rx's Medication Instructions Recorded Albuterol Sulfate [Proair Hfa] 1 - 2 puff INHALATION Q6HR PRN #1 05/16/18 inhaler Benzonatate [Tessalon Perles] 100 mg PO TID #15 cap 05/16/18 predniSONE 50 mg PO DAILY #5 tablet 05/16/18 Allergies Allergy/AdvReac Type Severity Reaction Status Date / Time amoxicillin Allergy Rash/Hives Verified 05/16/18 21:25 levofloxacin [From Levaquin] Allergy Rash/Hives Verified 05/16/18 21:25 Penicillins Allergy Rash/Hives Verified 05/16/18 21:25 Review of Systems ROS Statement: Those systems with pertinent positive or pertinent negative responses have been documented in the HPI. ROS Other: All systems not noted in ROS Statement are negative. 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 Lump in throat at voice box, SOME DYSPHAGIA; ANEMIA, HIATAL HERNIA. History of Any Multi-Drug Resistant Organisms: None Reported Past Surgical History: Appendectomy, Cholecystectomy, Orthopedic Surgery, Tubal Ligation Additional Past Surgical History / Comment(s): Torn ACL-Right KNEE Surgery. EGD, COLONOSCOPY Past Anesthesia/Blood Transfusion Reactions: No Reported Reaction Past Psychological History: Anxiety, Bipolar, Depression Smoking Status: Former smoker Past Alcohol Use History: Rare Past Drug Use History: None Reported - Past Family History Father Family Medical History: Congestive Heart Failure (CHF), Hypertension Mother Family Medical History: COPD, Thyroid Disorder General Exam - General Exam Comments Initial Comments: General: Well-developed well-nourished distress HEENT: Normocephalic/atraumatic, PERLL, pharynx erythema, swallowing well, EAC no erythema, no exudates, TM clear, no cervical lymph nodes Neck: Supple, nontender, trachea midline Chest/Lungs: Normal respirations, no signs of respiratory distress clear to auscultation bilaterally no wheezes, rales, rhonchi Cardiac: Regular rate and rhythm, normal S1-S2, no murmurs rubs or gallops Abdomen/GI: Soft nontender, bowel sounds equal or quadrant x4, no guarding, no rebound no CVA tenderness Musculoskeletal: Nontender, negative Kirstin, full range of motion, pain with weightbearing, +2 dorsalis pedis and posterior tibialis bilaterally, negative anterior drawer test Skin: Warmth, no rashes or lesions, no cyanosis or diaphoresis Neurologic: AAO x 3, CN 2-12 intact, Psychiatric: Mood and affect normal, judgment normal Limitations: no limitations Course Vital Signs 02/07/19 13:40 Temperature 98.1 F Pulse Rate 73 Respiratory 18 Rate Blood Pressure 120/86 O2 Sat by Pulse 97 Oximetry Procedures - Orthopedic Splinting/Casting Injury #1 Side: right Lower Extremity Injury Location: knee Lower Extremity Immobilizer: Paul wrap Medical Decision Making - Medical Decision Making Patient is a 48-year-old female presenting to emergency Department with right knee pain. X-rays negative for acute fracture or dislocations. Based on history or physical examination suspecting the patient is suffering knee sprain. Considering her history of knee knee reconstructive surgery, there could be an injury to the reconstructive ACL. Knee immobilizer applied. Patient advised to follow-up with cardiac exercise specialist. Strict return parameters were thoroughly discussed patient was understanding and agreeable. Patient advised to alternate Tylenol and ibuprofen for pain control. Case discussed with physician. Disposition Clinical Impression: Knee sprain Disposition: HOME SELF-CARE Condition: Stable Instructions (If sedation given, give patient instructions): Knee Pain (ED) Additional Instructions: Please follow-up with cardiac exercise specialist. Return to emergency department if symptoms worsen. Alternate between Tylenol and ibuprofen for pain control. Apply ice compress to area of injury. Is patient prescribed a controlled substance at d/c from ED?: No Referrals: Pato Duncan MD [Primary Care Provider] - 1-2 days José Bowman MD [STAFF PHYSICIAN] - 1-2 days Time of Disposition: 15:06
--- NOTE | 2019-02-07 14:40 | XR ---
EXAMINATION TYPE: XR knee complete RT DATE OF EXAM: 02/07/2019 COMPARISON: 01/20/2019 HISTORY: Pain TECHNIQUE: 3 views FINDINGS: There is old anterior cruciate ligament reconstructive surgery. I see no fracture nor dislo cation. Joint spaces are fairly normal. There is minor spurring of the femoral and tibial condyles. T here is no sign of joint effusion. IMPRESSION: Minimal spurring. No fracture. No change compared to last exam.
[2019-02-07] MEDS ORDERED: KETOROLAC 30 MG/ML 1 ML VIAL IM STA (15:06)
== END 2019-02-07 15:49 | disposition home or self-care (01) ==
LOC: EC 13:02
DX: S83.91XA Sprain of unspecified site of right knee, initial encounter (principal); K21.9 Gastro-esophageal reflux disease without esophagitis; E07.9 Disorder of thyroid, unspecified; D64.9 Anemia, unspecified; F41.9 Anxiety disorder, unspecified; F31.9 Bipolar disorder, unspecified; Z87.891 Personal history of nicotine dependence; Z87.19 Personal history of other diseases of the digestive system; Z90.49 Acquired absence of other specified parts of digestive tract; Z98.51 Tubal ligation status; Z98.890 Other specified postprocedural states; Z79.890 Hormone replacement therapy; Z79.899 Other long term (current) drug therapy; Z88.0 Allergy status to penicillin; Z88.1 Allergy status to other antibiotic agents; X50.9XXA Other and unspecified overexertion or strenuous movements or postures, initial encounter; Y92.009 Unspecified place in unspecified non-institutional (private) residence as the place of occurrence of the external cause; Y93.02 Activity, running
CPT/HCPCS: 99283; 96372; 73562; L1830; J1885

== ENCOUNTER → 2019-04-12 | Outpatient (CLI) | payer BC, OTHER ==
--- NOTE | 2019-04-12 14:41 | MM ---
Reason for exam: screening (asymptomatic). Last mammogram was performed 1 year and 11 months ago. Physical Findings: A clinical breast exam by your physician is recommended on an annual basis and results should be correlated with mammographic findings. MG Screening Mammo w CAD Bilateral CC and MLO view(s) were taken. Prior study comparison: May 23, 2017, bilateral MG screening mammo w CAD. February 10, 2012, mammogram, performed at [place]. The breast tissue is heterogeneously dense. This may lower the sensitivity of mammography. Developing asymmetry left upper outer quadrant. This finding is changed when compared with previous exams. ASSESSMENT: Incomplete: need additional imaging evaluation, BI-RAD 0 RECOMMENDATION: Special view mammogram of the left breast. If lesion persists on supplemental views, image directed ultrasound is recommended. [facility] will attempt to contact patient to return for supplemental views and ultrasound if indicated.
== END | disposition home or self-care (01) ==
LOC: RADMAMWWP 07:09
PROVIDERS: ATTEND Obstetrics & Gynecology
DX: Z12.31 Encounter for screening mammogram for malignant neoplasm of breast (principal)
CPT/HCPCS: 77067

== ENCOUNTER → 2019-04-21 | Outpatient (CLI) | payer BC, OTHER ==
--- NOTE | 2019-04-21 15:03 | MM ---
Reason for exam: additional evaluation requested from abnormal screening. Last mammogram was performed less than 1 month ago. History: Took hormonal contraceptives beginning at age 18. Physical Findings: Nurse Summary: 0.5cm nodule in the left breast at 12 o'clock (nurse dw). MG 3D Work Up W/Cad LT Spot compression CC, spot compression MLO, and ML view(s) were taken of the left breast. Prior study comparison: April 12, 2019, bilateral MG screening mammo w CAD. May 23, 2017, bilateral MG screening mammo w CAD. There is no discrete abnormality including area of concern. These results were verbally communicated with the patient and result sheet given to the patient on 04/21/19. ASSESSMENT: Incomplete: need additional imaging evaluation, BI-RAD 0 RECOMMENDATION: Ultrasound of the left breast. (palpable) Manage patient on a clinical basis.
--- NOTE | 2019-04-21 15:04 | USB ---
Reason for exam: additional evaluation requested from abnormal screening. History: Took hormonal contraceptives beginning at age 18. US Breast Workup Limited LT Left limited breast ultrasound including focal area of concern, retroareolar and axilla demonstrates no cystic or solid lesion seen. These results were verbally communicated with the patient and result sheet given to the patient on 04/21/19. ASSESSMENT: Negative, BI-RAD 1 RECOMMENDATION: Return to routine screening mammogram schedule for both breasts. Manage patient on a clinical basis.
== END | disposition home or self-care (01) ==
LOC: RADMAMWWP 13:02
PROVIDERS: ATTEND Obstetrics & Gynecology
DX: R92.8 Other abnormal and inconclusive findings on diagnostic imaging of breast (principal)
CPT/HCPCS: 77061; 77065

== ENCOUNTER 2019-05-05 16:21 | Inpatient (IN) | payer BC, OTHER ==
[2019-05-05 17:16] LABS: Appearance,Urine Clear (Clear); Bacteria,Urine Moderate /hpf; Bilirubin,Urine 1+ (Negative); Blood,Urine Small (Negative); Color,Urine Yellow; Glucose,Urine (UA) Negative (Negative); Ketones,Urine 4+ (Negative); Leukocyte Esterase,Urine Negative (Negative); Mucus,Urine Few /hpf; Nitrite,Urine Negative (Negative); Protein,Urine 2+ (Negative); Specific Gravity,Urine 1.032 (1.001-1.035); Squamous Epithelial Cell,Urine 2 /hpf (0-4)
[2019-05-05] MEDS ORDERED: ACETAMINOPHEN TAB 325 MG TAB PO STA (17:20)
[2019-05-05] MEDS ORDERED: IBUPROFEN 600 MG TAB PO STA (17:21)
[2019-05-05 17:24] LABS: Basophils # (A) 0.2 k/uL (0-0.2); Basophils % (A) 2 %; Eosinophils # (A) 0.1 k/uL (0-0.7); Eosinophils % (A) 1 %; HCT 39.1 % (34.0-46.0); HGB 12.7 gm/dL (11.4-16.0); Hypochromasia Slight; Lymphocytes # (A) 0.5 k/uL (1.0-4.8); Lymphocytes % (A) 7 %; MCH 24.8 pg (25.0-35.0); MCHC 32.4 g/dL (31.0-37.0); MCV 76.7 fL (80.0-100.0); Mean Platelet Volume 6.5; Microcytosis Slight; Monocytes # (A) 0.5 k/uL (0-1.0); Monocytes % (A) 8 %; Neutrophils # (A) 4.9 k/uL (1.3-7.7); Neutrophils % (A) 77 %; Platelet Count 262 k/uL (150-450); RDW 15.3 % (11.5-15.5); WBC 6.3 k/uL (3.8-10.6)
[2019-05-05 17:26] LABS: ALT 25 U/L (9-52); AST 62 U/L (14-36); African American GFR (CKD) >90 (>60 ml/min/1.73 sqM); Albumin 4.4 g/dL (3.5-5.0); Alkaline Phosphatase 63 U/L (38-126); Anion Gap 17 mmol/L; Blood Urea Nitrogen 14 mg/dL (7-17); Calcium 8.8 mg/dL (8.4-10.2); Carbon Dioxide 19 mmol/L (22-30); Chloride 98 mmol/L (98-107); Glucose 94 mg/dL (74-99); Potassium 4.5 mmol/L (3.5-5.1); Sodium 134 mmol/L (137-145); Total Bilirubin 0.9 mg/dL (0.2-1.3); Total Protein 8.2 g/dL (6.3-8.2)
[2019-05-05] MEDS ORDERED: SODIUM CHLORIDE 0.9% 1,000 ML IV STA (17:56)
--- NOTE | 2019-05-05 19:36 | XR ---
EXAMINATION TYPE: XR chest 2V DATE OF EXAM: 05/05/2019 COMPARISON: 05/16/2018 INDICATION: Cough TECHNIQUE: Frontal and lateral views of the chest are obtained. FINDINGS: The heart size is normal. The pulmonary vasculature is normal. Small consolidation is in the right lower lobe. Some mild consolidation may be within the periphery o f the left mid lung. Correlate for pneumonia. Follow-up can be performed. IMPRESSION: 1. Right lower lobe and left peripheral midlung infiltrates. Correlate for pneumonia. Follow-up can b e performed.
[2019-05-05] MEDS ORDERED: cefTRIAXone 1,000 MG VIAL (IM USE) IM STA (19:56)
--- NOTE | 2019-05-05 19:56 | ED ---
Fever HPI - General Chief Complaint: Fever Stated Complaint: Eye infection, chest cold Time Seen by Provider: 05/05/19 16:39 Source: patient Mode of arrival: ambulatory Limitations: no limitations - History of Present Illness Initial Comments: Patient is a 48-year-old female presenting to emergency Department with a chief complaint of a fever or cough. Patient reports she was in the urgent care 4 days ago for conjunctivitis and treated with eyedrops. Patient reports the following day she went to see her primary care who placed her on doxycycline for cough. Patient reports her cough had number really improved. Patient does report a productive cough with sputum production. Patient also reports fevers and chills for the past few days. Patient does report wheezing although she does not have asthma or COPD. Patient also reports nausea with 4 days of diarrhea but no abdominal pain. Patient denies any increased urgency, frequency or dysuria. Patient denies any vaginal discharge or bleeding. - Related Data Home Medications Medication Instructions Recorded Confirmed Cyanocobalamin (Vitamin B-12) 1,000 mcg PO DAILY 01/02/18 02/12/18 [Vitamin B-12] Levothyroxine Sodium [Synthroid] 125 mcg PO DAILY 01/02/18 02/12/18 Omeprazole 20 mg PO BID 01/02/18 02/12/18 Sertraline [Zoloft] 100 mg PO HS 01/02/18 02/12/18 lamoTRIgine [lamoTRIgine ER] 50 mg PO HS 01/02/18 02/12/18 Ferrous Sulfate [Feosol] 325 mg PO DAILY 01/27/18 02/12/18 Previous Rx's Medication Instructions Recorded Albuterol Sulfate [Proair Hfa] 1 - 2 puff INHALATION Q6HR PRN #1 05/16/18 inhaler Benzonatate [Tessalon Perles] 100 mg PO TID #15 cap 05/16/18 predniSONE 50 mg PO DAILY #5 tablet 05/16/18 Allergies Allergy/AdvReac Type Severity Reaction Status Date / Time amoxicillin Allergy Rash/Hives Verified 05/05/19 16:31 levofloxacin [From Levaquin] Allergy Rash/Hives Verified 05/05/19 16:31 Penicillins Allergy Rash/Hives Verified 05/05/19 16:31 Review of Systems ROS Statement: Those systems with pertinent positive or pertinent negative responses have been documented in the HPI. ROS Other: All systems not noted in ROS Statement are negative. 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 Lump in throat at voice box, SOME DYSPHAGIA; ANEMIA, HIATAL HERNIA. History of Any Multi-Drug Resistant Organisms: None Reported Past Surgical History: Appendectomy, Cholecystectomy, Orthopedic Surgery, Tubal Ligation Additional Past Surgical History / Comment(s): Torn ACL-Right KNEE Surgery. EGD, COLONOSCOPY Past Anesthesia/Blood Transfusion Reactions: No Reported Reaction Past Psychological History: Anxiety, Bipolar, Depression Smoking Status: Former smoker Past Alcohol Use History: Rare Past Drug Use History: None Reported - Past Family History Father Family Medical History: Congestive Heart Failure (CHF), Hypertension Mother Family Medical History: COPD, Thyroid Disorder General Exam Limitations: no limitations General appearance: alert, in no apparent distress Head exam: Present: atraumatic, normocephalic, normal inspection Eye exam: Present: normal appearance, PERRL, EOMI, conjunctival injection Pupils: Present: normal accommodation ENT exam: Present: normal exam, normal oropharynx (Bilateral tonsillar erythema with exudates.), mucous membranes moist, TM's normal bilaterally, normal external ear exam Neck exam: Present: normal inspection (Anterior cervical), full ROM, lymphadenopathy Respiratory exam: Present: wheezes (bilateral wheezing) Cardiovascular Exam: Present: regular rate, normal rhythm, normal heart sounds Extremities exam: Present: normal inspection, full ROM Back exam: Present: normal inspection, full ROM Neurological exam: Present: alert, oriented X3 Psychiatric exam: Present: normal affect, normal mood Skin exam: Present: warm, intact, normal color Course Vital Signs 05/05/19 05/05/19 05/05/19 16:31 17:31 18:00 Temperature 102.8 F H 102.0 F H 99.5 F Pulse Rate 103 H 98 91 Respiratory 18 18 18 Rate Blood Pressure 139/82 109/76 128/67 O2 Sat by Pulse 96 96 96 Oximetry 05/05/19 05/05/19 18:59 19:00 Temperature 100.0 F H 100.0 F H Pulse Rate 80 80 Respiratory 18 18 Rate Blood Pressure 115/60 115/60 O2 Sat by Pulse 96 96 Oximetry Medical Decision Making - Medical Decision Making Patient is a 48-year-old female presenting to the emergency department with a chief complaint of a fever and cough. Patient was given doxycycline by primary care 2 days ago with no improvement in symptoms. Patient reports increasing productive cough. Physical examination patient is wheezing bilaterally. Patient also appears to have strep pharyngitis with bilateral tonsillar erythema and exudates, along with anterior cervical lymph nodes. Rapid strep and influenza are negative. Chest x-ray is indicative of right lower lobe pneumonia. Blood cultures and lactic acid obtained. Patient given a dose of Rocephin. Patient will be admitted for further management. Admitting physician is Dr. Alas. Case discussed with Dr. Espinoza. - Lab Data Result diagrams: 05/05/19 17:00 05/05/19 17:00 Lab Results 05/05/19 05/05/19 05/05/19 Range/Units 17:00 17:00 17:00 WBC 6.3 (3.8-10.6) k/uL RBC 5.10 (3.80-5.40) m/uL Hgb 12.7 (11.4-16.0) gm/dL Hct 39.1 (34.0-46.0) % MCV 76.7 L (80.0-100.0) fL MCH 24.8 L (25.0-35.0) pg MCHC 32.4 (31.0-37.0) g/dL RDW 15.3 (11.5-15.5) % Plt Count 262 (150-450) k/uL Neutrophils % 77 % Lymphocytes % 7 % Monocytes % 8 % Eosinophils % 1 % Basophils % 2 % Neutrophils # 4.9 (1.3-7.7) k/uL Lymphocytes # 0.5 L (1.0-4.8) k/uL Monocytes # 0.5 (0-1.0) k/uL Eosinophils # 0.1 (0-0.7) k/uL Basophils # 0.2 (0-0.2) k/uL Hypochromasia Slight Microcytosis Slight Sodium 134 L (137-145) mmol/L Potassium 4.5 (3.5-5.1) mmol/L Chloride 98 (98-107) mmol/L Carbon Dioxide 19 L (22-30) mmol/L Anion Gap 17 mmol/L BUN 14 (7-17) mg/dL Creatinine 0.55 (0.52-1.04) mg/dL Est GFR (CKD-EPI)AfAm >90 (>60 ml/min/1.73 sqM) Est GFR (CKD-EPI)NonAf >90 (>60 ml/min/1.73 sqM) Glucose 94 (74-99) mg/dL Plasma Lactic Acid Spencer 0.9 (0.7-2.0) mmol/L Calcium 8.8 (8.4-10.2) mg/dL Total Bilirubin 0.9 (0.2-1.3) mg/dL AST 62 H (14-36) U/L ALT 25 (9-52) U/L Alkaline Phosphatase 63 (38-126) U/L Total Protein 8.2 (6.3-8.2) g/dL Albumin 4.4 (3.5-5.0) g/dL Urine Color Urine Appearance (Clear) Urine pH (5.0-8.0) Ur Specific Sutton (1.001-1.035) Urine Protein (Negative) Urine Glucose (UA) (Negative) Urine Ketones (Negative) Urine Blood (Negative) Urine Nitrite (Negative) Urine Bilirubin (Negative) Urine Urobilinogen (<2.0) mg/dL Ur Leukocyte Esterase (Negative) Urine WBC (0-5) /hpf Ur Squamous Epith Cells (0-4) /hpf Urine Bacteria (None) /hpf Urine Mucus (None) /hpf Influenza Type A RNA (Not Detectd) Influenza Type B (PCR) (Not Detectd) Group A Strep Rapid (Negative) 05/05/19 05/05/19 05/05/19 Range/Units 17:00 17:45 17:45 WBC (3.8-10.6) k/uL RBC (3.80-5.40) m/uL Hgb (11.4-16.0) gm/dL Hct (34.0-46.0) % MCV (80.0-100.0) fL MCH (25.0-35.0) pg MCHC (31.0-37.0) g/dL RDW (11.5-15.5) % Plt Count (150-450) k/uL Neutrophils % % Lymphocytes % % Monocytes % % Eosinophils % % Basophils % % Neutrophils # (1.3-7.7) k/uL Lymphocytes # (1.0-4.8) k/uL Monocytes # (0-1.0) k/uL Eosinophils # (0-0.7) k/uL Basophils # (0-0.2) k/uL Hypochromasia Microcytosis Sodium (137-145) mmol/L Potassium (3.5-5.1) mmol/L Chloride (98-107) mmol/L Carbon Dioxide (22-30) mmol/L Anion Gap mmol/L BUN (7-17) mg/dL Creatinine (0.52-1.04) mg/dL Est GFR (CKD-EPI)AfAm (>60 ml/min/1.73 sqM) Est GFR (CKD-EPI)NonAf (>60 ml/min/1.73 sqM) Glucose (74-99) mg/dL Plasma Lactic Acid Spencer (0.7-2.0) mmol/L Calcium (8.4-10.2) mg/dL Total Bilirubin (0.2-1.3) mg/dL AST (14-36) U/L ALT (9-52) U/L Alkaline Phosphatase (38-126) U/L Total Protein (6.3-8.2) g/dL Albumin (3.5-5.0) g/dL Urine Color Yellow Urine Appearance Clear (Clear) Urine pH 6.0 (5.0-8.0) Ur Specific Sutton 1.032 (1.001-1.035) Urine Protein 2+ H (Negative) Urine Glucose (UA) Negative (Negative) Urine Ketones 4+ H (Negative) Urine Blood Small H (Negative) Urine Nitrite Negative (Negative) Urine Bilirubin 1+ H (Negative) Urine Urobilinogen 2.0 (<2.0) mg/dL Ur Leukocyte Esterase Negative (Negative) Urine WBC 2 (0-5) /hpf Ur Squamous Epith Cells 2 (0-4) /hpf Urine Bacteria Moderate H (None) /hpf Urine Mucus Few H (None) /hpf Influenza Type A RNA Not Detected (Not Detectd) Influenza Type B (PCR) Not Detected (Not Detectd) Group A Strep Rapid Negative (Negative) Disposition Clinical Impression: Pneumonia Disposition: ADMITTED IP TO THIS HOSP Condition: Good Instructions (If sedation given, give patient instructions): Fever in Adults (ED) Additional Instructions: Patient will be admitted Is patient prescribed a controlled substance at d/c from ED?: No Referrals: Pato Duncan MD [Primary Care Provider] - 1-2 days Time of Disposition: 20:43
[2019-05-05] MEDS ORDERED: cefTRIAXone IN SWFI 1,000 MG/10 ML SYRINGE IVP STA (19:59)
[2019-05-05] MEDS ORDERED: NALOXONE 0.4 MG/ML 1 ML VIAL IV PRN (20:18)
[2019-05-05] MEDS: SODIUM CHLORIDE 0.9% 1,000 ML IV SCH (20:28)
[2019-05-05] MEDS ORDERED: IBUPROFEN 800 MG TAB PO PRN (21:26)
[2019-05-05 22:52] VITALS: BMI 36.8
[2019-05-05] MEDS ORDERED: BENZONATATE 100 MG CAP PO PRN (23:17)
[2019-05-05] MEDS: PANTOPRAZOLE 40 MG TABLET PO SCH (23:57)
[2019-05-05] MEDS: lamoTRIgine 100 MG TAB PO SCH (23:57)
[2019-05-05] MEDS: SERTRALINE 100 MG TAB PO SCH (23:57)
[2019-05-05] MEDS: guaiFENesin SYRUP 100MG/5ML 200 MG/10 ML CUP PO PRN (23:58)
[2019-05-06] MEDS: ACETAMINOPHEN TAB 500 MG TAB PO PRN ×2 (05:15→13:32)
[2019-05-06] MEDS: LEVOTHYROXINE 125 MCG TAB PO SCH (05:48)
[2019-05-06] MEDS: SODIUM CHLORIDE 0.9% 1,000 ML IV SCH ×2 (08:21→20:20)
[2019-05-06] MEDS: IPRATROPIUM-ALBUTEROL 3 ML NEB INHALATION PRN (08:30)
[2019-05-06] MEDS: PANTOPRAZOLE 40 MG TABLET PO SCH ×2 (08:56→20:20)
[2019-05-06] MEDS: lamoTRIgine 100 MG TAB PO SCH ×2 (08:57→20:20)
[2019-05-06] MEDS: LORATADINE 10 MG TAB PO SCH (16:16)
[2019-05-06] MEDS: guaiFENesin SYRUP 100MG/5ML 200 MG/10 ML CUP PO PRN (17:02)
[2019-05-06] MEDS: methylPREDNISolone SOD SUCCI 40 MG/ML 1 ML VIAL IV SCH ×2 (17:49→23:43)
[2019-05-06] MEDS: INSULIN ASPART (NovoLOG) 100 UNIT/ML VIAL SQ SCH ×2 (18:15→20:51)
[2019-05-06] MEDS: KETOTIFEN 0.025% OPHTH DROPS 5 ML BTL BOTH EYES SCH ×2 (18:18)
[2019-05-06] MEDS: AZITHROMYCIN 500 MG in SODIUM CHLORIDE 0.9% 250 ML IVPB SCH (18:47)
--- NOTE | 2019-05-06 18:55 | CT ---
EXAMINATION TYPE: CT chest wo con DATE OF EXAM: 05/06/2019 COMPARISON: None HISTORY: Pneumonia. CT DLP: 480. mGycm. Automated Exposure Control for Dose Reduction was Utilized. TECHNIQUE: CT scan of the thorax is performed without IV contrast. FINDINGS: There is 4 cm infiltrate in the periphery of the left midlung adjacent to the left lateral chest wall in the left upper lobe. There is a triangular-shaped 6 cm infiltrate in the right lower lobe posteri gabe. There is no pleural effusion. Heart size is normal. There is no pericardial effusion. There are few mediastinal lymph nodes that measure less than 1 cm. There are no hilar masses. The bony thorax is intact. IMPRESSION: There is airspace consolidation in the left upper lobe and right lower lobe probably rela mahendra to inflammatory disease. This probably can be followed conservatively with follow-up chest x-ray.
--- NOTE | 2019-05-06 19:55 | HP ---
HISTORY AND PHYSICAL 48-year-old white female came in with fever, cough, failing outpatient treatment with bilateral conjunctivitis and cough and congestion, shortness of breath, failing outpatient treatment. Fevers and chills over the past few days. Wheezing with shortness of breath, four days of diarrhea. No frequency, urgency, dysuria, melena, hematochezia. No vaginal discharge, bleeding. HOME MEDICATIONS: Synthroid 125 daily, omeprazole 20 mg b.i.d., Zoloft 100 mg at 9, Lamictal 50 at night, ferrous sulfate 325 daily. ALLERGIES: AMOXICILLIN, LEVAQUIN, PENICILLIN. REVIEW OF SYSTEMS: 14 point review of systems as mentioned above. PAST MEDICAL HISTORY: GERD, hypothyroidism, neuropathy in top of her foot, hypothyroidism, lump in the voice box, anemia. PAST SURGICAL HISTORY: Hiatal hernia surgery, appendectomy, cholecystectomy, orthopedic surgery, tubal ligation. She had an EGD, torn ACL right knee and colonoscopy. Anxiety and bipolar depression. SOCIAL HISTORY: Former smoker. FAMILY HISTORY: Father with congestive heart failure, hypertension. Mother with hypothyroidism, heart, COPD. PHYSICAL EXAM: T-max 102.8, heart rate 91 to 103, the blood pressure is 109 to 130s over 60s to 80s, O2 saturation 96%. HEENT: Normocephalic, atraumatic. Pupils equal, round, reactive. Lungs scattered wheeze. Respiratory expiratory scattered rhonchi. HEART: Regular rate and rhythm. EXTREMITIES: No cyanosis, clubbing, edema. ENDOCRINE: BMI is over 40. PSYCH: Alert and oriented x3. SKIN: No rash, excoriation or bruising. Chest x-ray shows bilateral pneumonia. ASSESSMENT: 1. Bilateral pneumonia, community-acquired pneumonia. 2. Possible asthma versus chronic obstructive pulmonary disease. We will do a CT scan of her lungs tonight to confirm bilateral pneumonia. 3. Chronic fatty liver. 4. Possible bipolar. 5. Hypothyroidism. Please see further orders. Negative flu titers, negative rapid strep, possible UTI, IV steroids, IV azithromycin and Rocephin will be given. MMODL / IJN: [id number] /
[2019-05-06] MEDS: ONDANSETRON 4 MG/2 ML VIAL IVP PRN (20:24)
[2019-05-06 20:30] LABS: Glucose,Whole Blood 106 mg/dL (75-99)
[2019-05-06] MEDS: SERTRALINE 100 MG TAB PO SCH (23:43)
[2019-05-07] MEDS: methylPREDNISolone SOD SUCCI 40 MG/ML 1 ML VIAL IV SCH ×3 (06:19→17:58)
[2019-05-07] MEDS: LEVOTHYROXINE 125 MCG TAB PO SCH (06:19)
[2019-05-07 06:20] LABS: Glucose,Whole Blood 129 mg/dL (75-99)
[2019-05-07] MEDS: INSULIN ASPART (NovoLOG) 100 UNIT/ML VIAL SQ SCH ×4 (06:37→20:45)
[2019-05-07] MEDS: AZITHROMYCIN 500 MG in SODIUM CHLORIDE 0.9% 250 ML IVPB SCH (07:51)
[2019-05-07] MEDS: KETOTIFEN 0.025% OPHTH DROPS 5 ML BTL BOTH EYES SCH (07:52)
[2019-05-07] MEDS: lamoTRIgine 100 MG TAB PO SCH ×2 (07:53→20:34)
[2019-05-07] MEDS: PANTOPRAZOLE 40 MG TABLET PO SCH ×2 (07:53→20:37)
[2019-05-07] MEDS: LORATADINE 10 MG TAB PO SCH (07:54)
[2019-05-07] MEDS: ONDANSETRON 4 MG/2 ML VIAL IVP PRN (08:05)
[2019-05-07] MEDS ORDERED: CEFDINIR 300 MG CAP PO SCH (09:00)
[2019-05-07 11:33] LABS: Glucose,Whole Blood 161 mg/dL (75-99)
--- NOTE | 2019-05-07 12:31 | CONS ---
CONSULTATION HISTORY: This is a 48-year-old white female who was admitted with a diagnosis of pneumonia. The patient is currently resting comfortably while IV antibiotics are being administered. The patient states that earlier in the week she was seen at a walk-in clinic due to redness in the periorbital regions of both eyes with the right side being more affected than the left. The patient also complained of severe redness in both of her eyes, which has improved since being started on a topical antibiotic. Since being admitted to the hospital, the patient has been receiving IV antibiotics and states that the redness around her eyes has improved though she still complains of some irritation, especially when her right eye is closed. EXAM: Visual acuity with correction measured 20/20 bilaterally. Pupils are equal and reactive to light. On penlight exam, the periorbital regions were clear and no evidence of inflammation was noted. The lids were normal in contour with no swelling. The conjunctivae exhibited mild injection bilaterally. The corneas were clear. The anterior chambers were quiet. The irises were normal and the remainder of the ophthalmic exam was otherwise unremarkable. IMPRESSION: Conjunctivitis with possible periorbital involvement. The patient has improved significantly since starting on IV antibiotics and I explained to her that these, no doubt would clear any bacterial component to her periocular infection. Instead of continuing on antibiotic drops, I thought it would be prudent to switch over to artificial tear which would help with her discomfort that is likely present from the continued inflammation and swelling of the conjunctiva tissue. I asked that she follow up in my office upon discharge where a closer evaluation of the inner eyelid surface could be carried out and determination whether any additional treatment would be indicated. Thank you much for this most kind consultation. MMROBELL / IJN: [id number] /
[2019-05-07] MEDS: SODIUM CHLORIDE 0.9% 1,000 ML IV SCH (12:59)
--- NOTE | 2019-05-07 15:56 | P.CNPUL ---
History of Present Illness Consult date: 05/07/19 Reason for consult: dyspnea, cough, chest pain Chief complaint: Symptoms started a week ago with upper respiratory type of infection History of present illness: 48-year-old M into the hospital with one-day history of increasing shortness of breath cough and fever which is progressively getting better she came into the hospital found to have a bilateral pneumonia her baseline problems are significant for vitamin B12 deficiency hypothyroidism and chronic anemia, she has been started on IV Rocephin and Zithromax developed a rash-like process with Rocephin has been discontinued currently patient is just on by mouth Zithromax review of the computed tomography scan revealed that patient has a very dense pneumonia in the right lower lobe and left upper lobe her chest pain likely related to her left upper lobe process has very close to chest wall patient likely needs broad-spectrum antibiotics for mixed bacterial pneumonia gram- negative so she is being placed on aztreonam with clindamycin labs reviewed medications reviewed care plan discussed with the staff at length, she has some loose stool and diarrhea now it's caring stable, in addition patient has been is currently complaining of scratchy throat which seems to have stabilized now rapid strep as well as flow has been negative unable to obtain the sputum, blood cultures in the last 24 hours have been negative Review of Systems All systems: negative Past Medical History Past Medical History: GERD/Reflux, Thyroid Disorder Additional Past Medical History / Comment(s): 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 HIATAL HERNIA. History of Any Multi-Drug Resistant Organisms: None Reported Past Surgical History: Appendectomy, Cholecystectomy, Orthopedic Surgery, Tubal Ligation Additional Past Surgical History / Comment(s): Torn ACL-Right KNEE Surgery. EGD, COLONOSCOPY Past Anesthesia/Blood Transfusion Reactions: No Reported Reaction Past Psychological History: Anxiety, Bipolar, Depression Smoking Status: Former smoker Past Alcohol Use History: Rare Additional Past Alcohol Use History / Comment(s): SMOKED 5 YEARS, 1/2 PPD EST, QUIT 1996 Past Drug Use History: None Reported - Past Family History Father Family Medical History: Congestive Heart Failure (CHF), Hypertension Mother Family Medical History: COPD, Thyroid Disorder Medications and Allergies Home Medications Medication Instructions Recorded Confirmed Type Levothyroxine Sodium [Synthroid] 125 mcg PO DAILY 01/02/18 05/05/19 History Omeprazole 20 mg PO BID 01/02/18 05/05/19 History Sertraline [Zoloft] 100 mg PO HS 01/02/18 05/05/19 History lamoTRIgine [LaMICtal] 150 mg PO BID 05/05/19 05/05/19 History Allergies Allergy/AdvReac Type Severity Reaction Status Date / Time amoxicillin Allergy Rash/Hives Verified 05/05/19 21:44 levofloxacin [From Levaquin] Allergy Rash/Hives Verified 05/05/19 21:44 Penicillins Allergy Rash/Hives Verified 05/05/19 21:44 Physical Exam Vitals: Vital Signs Temp Pulse Pulse Resp BP Pulse Ox 05/07/19 11:57 97.7 F 73 20 124/82 94 L 05/07/19 08:01 97.5 F L 69 18 109/70 96 05/06/19 23:46 97.9 F 70 18 121/70 95 05/06/19 21:00 99.1 F 05/06/19 20:00 100.6 F H 86 20 112/60 95 05/06/19 16:00 99.1 F 80 18 123/72 94 L Intake and Output 05/07/19 05/07/19 05/07/19 06:59 14:59 22:59 Intake Total 240 Balance 240 Intake: Oral 240 Other: # Voids 1 1 - Constitutional General appearance: average body habitus, cooperative, disheveled - EENT Eyes: EOMI, PERRLA, poor dentition, normal appearance ENT: normal oropharynx Ears: bilateral: normal - Neck Carotids: bilateral: upstroke normal, bruit absent Thyroid: bilateral: normal size - Respiratory Respiratory: right: rales (Predominantly on the right base), bilateral: diminished - Cardiovascular Rhythm: regular Heart sounds: normal: S1, S2 - Gastrointestinal General gastrointestinal: normal bowel sounds - Neurologic Neurologic: CNII-XII intact - Musculoskeletal Musculoskeletal: gait normal, generalized weakness, strength equal bilaterally - Psychiatric Psychiatric: A&O x's 3, appropriate affect, intact judgment & insight Results - Laboratory Findings CBC and BMP: 05/05/19 17:00 05/05/19 17:00 Abnormal lab findings: Abnormal Labs 05/05/19 05/05/19 05/05/19 17:00 17:00 17:00 MCV 76.7 L MCH 24.8 L Lymphocytes # 0.5 L Sodium 134 L Carbon Dioxide 19 L POC Glucose (mg/dL) AST 62 H Urine Protein 2+ H Urine Ketones 4+ H Urine Blood Small H Urine Bilirubin 1+ H Urine Bacteria Moderate H Urine Mucus Few H 05/06/19 05/07/19 05/07/19 20:27 06:18 11:31 MCV MCH Lymphocytes # Sodium Carbon Dioxide POC Glucose (mg/dL) 106 H 129 H 161 H AST Urine Protein Urine Ketones Urine Blood Urine Bilirubin Urine Bacteria Urine Mucus - Diagnostic Findings Chest x-ray: report reviewed, image reviewed CT scan - chest: report reviewed, image reviewed (Pending as noted above) Assessment and Plan Assessment: Bilateral pneumonia Early sepsis due to pneumonia Hypothyroidism Chronic asthma Plan: Broad-spectrum antibiotics given the ALLERGIC reaction patient is being started on aztreonam with clindamycin we'll continue Zithromax Gentle hydration Bronchodilator Other recommendations pending plan of care as per clinical response of the patient
[2019-05-07] MEDS: CLINDAMYCIN 600 MG in DEXTROSE 5% IN WATER 50 ML IVPB SCH ×2 (16:44)
[2019-05-07 17:29] LABS: Glucose,Whole Blood 110 mg/dL (75-99)
[2019-05-07] MEDS: ARTIFICIAL TEARS-HYPROMELLOSE DROPS 15 ML BTL BOTH EYES PRN (19:03)
[2019-05-07] MEDS: SERTRALINE 100 MG TAB PO SCH (20:37)
[2019-05-07 20:43] LABS: Glucose,Whole Blood 133 mg/dL (75-99)
[2019-05-07] MEDS ORDERED: AZTREONAM 1 GM in SODIUM CHLORIDE 0.9% 50 ML IVPB SCH (21:00)
[2019-05-08] MEDS: CLINDAMYCIN 600 MG in DEXTROSE 5% IN WATER 50 ML IVPB SCH ×2 (00:07)
[2019-05-08] MEDS: SODIUM CHLORIDE 0.9% 1,000 ML IV SCH ×2 (00:07→13:47)
[2019-05-08] MEDS: methylPREDNISolone SOD SUCCI 40 MG/ML 1 ML VIAL IV SCH ×4 (00:07→17:43)
--- NOTE | 2019-05-08 00:48 | P.CONS ---
History of Present Illness - Reason for Consult Consult date: 05/07/19 Pneumonia Requesting physician: Pato Duncan - Chief Complaint Shortness of breath and cough x few days - History of Present Illness Patient is a 48-year-old female presenting to the [facility]. Some increased shortness of breath and cough patient's symptoms started initially the patient did have a right-sided conjunctivitis for the patient has been evaluated in the outpatient setting and expressed subsequently evaluated by the primary care physician he was started on oral doxycycline because of her respiratory symptoms of cough that has been more treatment intensity with occasional sputum production no hemoptysis denies significant pleuritic chest pain patient be complaining of fever with chills, with the symptoms the patient presented to hospital on or after the patient did have fever of 102F he did have mild tachycardia with heart rate of 90 white count was normal chest x-ray and CT has been suggestive of left upper lobe and right middle lobe infiltrate suggestive of pneumonia patient did have amoxicillin and Levaquin ALLERGY she was started on Rocephin and the patient did have a development of rash secondary to the same subsequently Rocephin was discontinued clindamycin and aztreonam has been added by pulmonary she was continued on the Flomax and infectious disease was consulted for further recommendation regarding medical therapy he also complaining of Neal of nausea vomiting he did have some diarrhea denies any sick contact Review of Systems Positive point has been mentioned in the HPI rest of the systems are negative Past Medical History Past Medical History: GERD/Reflux, Thyroid Disorder Additional Past Medical History / Comment(s): 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 HIATAL HERNIA. History of Any Multi-Drug Resistant Organisms: None Reported Past Surgical History: Appendectomy, Cholecystectomy, Orthopedic Surgery, Tubal Ligation Additional Past Surgical History / Comment(s): Torn ACL-Right KNEE Surgery. EGD, COLONOSCOPY Past Anesthesia/Blood Transfusion Reactions: No Reported Reaction Past Psychological History: Anxiety, Bipolar, Depression Smoking Status: Former smoker Past Alcohol Use History: Rare Additional Past Alcohol Use History / Comment(s): SMOKED 5 YEARS, 1/2 PPD EST, QUIT 1996 Past Drug Use History: None Reported - Past Family History Father Family Medical History: Congestive Heart Failure (CHF), Hypertension Mother Family Medical History: COPD, Thyroid Disorder Medications and Allergies Home Medications Medication Instructions Recorded Confirmed Type Levothyroxine Sodium [Synthroid] 125 mcg PO DAILY 01/02/18 05/05/19 History Omeprazole 20 mg PO BID 01/02/18 05/05/19 History Sertraline [Zoloft] 100 mg PO HS 01/02/18 05/05/19 History lamoTRIgine [LaMICtal] 150 mg PO BID 05/05/19 05/05/19 History Allergies Allergy/AdvReac Type Severity Reaction Status Date / Time amoxicillin Allergy Rash/Hives Verified 05/05/19 21:44 ceftriaxone Allergy Rash/Hives Verified 05/07/19 18:11 levofloxacin [From Levaquin] Allergy Rash/Hives Verified 05/05/19 21:44 Penicillins Allergy Rash/Hives Verified 05/05/19 21:44 Physical Exam Vitals: Vital Signs Temp Pulse Pulse Resp BP Pulse Ox 05/07/19 11:57 97.7 F 73 20 124/82 94 L 05/07/19 08:01 97.5 F L 69 18 109/70 96 05/06/19 23:46 97.9 F 70 18 121/70 95 05/06/19 21:00 99.1 F 05/06/19 20:00 100.6 F H 86 20 112/60 95 05/06/19 16:00 99.1 F 80 18 123/72 94 L Intake and Output 05/06/19 05/07/19 05/07/19 22:59 06:59 14:59 Intake Total 1340 240 Balance 1340 240 Intake: Oral 1340 240 Other: Voiding Method Toilet # Voids 1 1 1 # Bowel Movements 1 GENERAL DESCRIPTION: Middle-aged female lying in bed, no distress. No tachypnea or accessory muscle of respiration use. HEENT: Shows Pallor , no scleral icterus. Oral mucous membrane is dry. No pharyngeal erythema or thrush NECK: Trachea central, no thyromegaly. LUNGS: Unlabored breathing. Decreased in the base No wheeze or crackle. HEART: S1, S2, regular rate and rhythm. No loud murmur ABDOMEN: Soft, no tenderness , guarding or rigidity, no organomegaly EXTREMITIES: No edema of feet. SKIN: No rash, no masses palpable. NEUROLOGICAL: The patient is awake, alert, oriented x3, mood and affect normal. Results CBC & Chem 7: 05/05/19 17:00 05/05/19 17:00 Labs: Abnormal Lab Results - Last 24 Hours (Table) 05/06/19 05/07/19 05/07/19 Range/Units 20:27 06:18 11:31 POC Glucose (mg/dL) 106 H 129 H 161 H (75-99) mg/dL Microbiology - Last 24 Hours (Table) 05/05/19 17:00 Blood Culture - Preliminary Blood No Growth after 24 hours Assessment and Plan Assessment: 1-patient presented to the hospital with sepsis in this patient who did have a fever and tachycardia associated left upper lobe and right middle lobe pneumonia likely community acquired 2-Patient with multiple antibiotic ALLERGIES that would limit the number of antibiotic safe to use (1) Sepsis Current Visit: Yes Status: Acute Code(s): A41.9 - SEPSIS, UNSPECIFIED ORGANISM SNOMED Code(s): 33877286 (2) Pneumonia Current Visit: Yes Status: Acute Code(s): J18.9 - PNEUMONIA, UNSPECIFIED ORGANISM SNOMED Code(s): 001771629 Plan: 1-otain sputum for Gram stain and culture 2-check urine for Legionella antigen 3-discontinue Azactam and clindamycin 4-start the patient on Invanz 1 g daily and continue with Zithromax We will follow on clinical condition and cultures to further adjust medication if needed Thank you for this consultation will follow this patient with you Time with Patient: Greater than 30
[2019-05-08 06:29] LABS: Glucose,Whole Blood 125 mg/dL (75-99)
[2019-05-08] MEDS: LEVOTHYROXINE 125 MCG TAB PO SCH (06:30)
[2019-05-08] MEDS: INSULIN ASPART (NovoLOG) 100 UNIT/ML VIAL SQ SCH ×4 (06:41→21:07)
[2019-05-08] MEDS: lamoTRIgine 100 MG TAB PO SCH ×2 (08:24→21:12)
[2019-05-08] MEDS: PANTOPRAZOLE 40 MG TABLET PO SCH ×2 (08:24→21:11)
[2019-05-08] MEDS: AZITHROMYCIN 500 MG TAB PO SCH (08:24)
[2019-05-08] MEDS: LORATADINE 10 MG TAB PO SCH (08:24)
[2019-05-08] MEDS: ERTAPENEM 1 GM in SODIUM CHLORIDE 0.9% 50 ML IVPB SCH (08:25)
[2019-05-08] MEDS: ARTIFICIAL TEARS-HYPROMELLOSE DROPS 15 ML BTL BOTH EYES PRN ×3 (08:25→21:11)
[2019-05-08 08:49] LABS: ALT 27 U/L (9-52); AST 18 U/L (14-36); African American GFR (CKD) >90 (>60 ml/min/1.73 sqM); Albumin 3.2 g/dL (3.5-5.0); Alkaline Phosphatase 62 U/L (38-126); Anion Gap 10 mmol/L; Blood Urea Nitrogen 19 mg/dL (7-17); Calcium 8.5 mg/dL (8.4-10.2); Carbon Dioxide 26 mmol/L (22-30); Chloride 107 mmol/L (98-107); Glucose 124 mg/dL (74-99); Potassium 3.6 mmol/L (3.5-5.1); Sodium 143 mmol/L (137-145); Total Bilirubin 0.3 mg/dL (0.2-1.3); Total Protein 6.2 g/dL (6.3-8.2)
[2019-05-08 09:20] LABS: HCT 36.7 % (34.0-46.0); HGB 11.6 gm/dL (11.4-16.0); Hypochromasia Moderate; MCH 24.9 pg (25.0-35.0); MCHC 31.6 g/dL (31.0-37.0); MCV 78.7 fL (80.0-100.0); Mean Platelet Volume 6.2; Microcytosis Slight; Platelet Count 332 k/uL (150-450); RBC 4.66 m/uL (3.80-5.40); RDW 15.6 % (11.5-15.5); WBC 8.6 k/uL (3.8-10.6)
[2019-05-08 11:55] LABS: Glucose,Whole Blood 102 mg/dL (75-99)
[2019-05-08 13:58] LABS: Band Neutrophils % 2 %; Lymphocytes # (M) 1.29 k/uL (1.0-4.8); Monocytes # (M) 0.52 k/uL (0-1.0); Neutrophils % (M) 77 %; Nucleated Red Blood Cells 0 /100 WBC (0-0); Total Cells Counted 100
[2019-05-08 17:37] LABS: Glucose,Whole Blood 153 mg/dL (75-99)
[2019-05-08 21:02] LABS: Glucose,Whole Blood 119 mg/dL (75-99)
[2019-05-08] MEDS: SERTRALINE 100 MG TAB PO SCH (21:11)
[2019-05-09] MEDS: methylPREDNISolone SOD SUCCI 40 MG/ML 1 ML VIAL IV SCH ×4 (00:19→18:22)
[2019-05-09] MEDS: SODIUM CHLORIDE 0.9% 1,000 ML IV SCH ×2 (00:26→17:40)
--- NOTE | 2019-05-09 03:53 | PN ---
PROGRESS NOTE 48-year-old white female with bilateral pneumonia, continues on great improvement. Cardiovascular: S1-S2. Lungs scattered rhonchi and wheeze. Ophthalmologic: Conjunctivitis is slowly improving. Remains on IV steroids, IV antibiotics, updraft treatments. Cardiovascular S1-S2. Lungs scattered wheeze and rhonchi. Hematology negative Homans. Psych fair mood and affect. Neurologic: Alert orient x3 1. Continue current treatment in the next 24 to 48 hours. Possible discharge. Remains on IV steroids, updraft treatments, IV antibiotics. Continue current treatment. MMODL / IJN: [id number] /
[2019-05-09] MEDS: LEVOTHYROXINE 125 MCG TAB PO SCH (06:32)
[2019-05-09 06:37] LABS: Glucose,Whole Blood 112 mg/dL (75-99)
[2019-05-09] MEDS: ONDANSETRON 4 MG/2 ML VIAL IVP PRN (06:37)
[2019-05-09] MEDS: INSULIN ASPART (NovoLOG) 100 UNIT/ML VIAL SQ SCH ×4 (06:59→21:32)
[2019-05-09] MEDS: ERTAPENEM 1 GM in SODIUM CHLORIDE 0.9% 50 ML IVPB SCH (08:43)
[2019-05-09] MEDS: PANTOPRAZOLE 40 MG TABLET PO SCH ×2 (08:44→21:17)
[2019-05-09] MEDS: lamoTRIgine 100 MG TAB PO SCH ×2 (08:44→21:17)
[2019-05-09] MEDS: AZITHROMYCIN 500 MG TAB PO SCH (08:45)
[2019-05-09] MEDS: LORATADINE 10 MG TAB PO SCH (08:45)
[2019-05-09] MEDS: KETOTIFEN 0.025% OPHTH DROPS 5 ML BTL BOTH EYES SCH ×2 (12:04→21:17)
[2019-05-09 12:14] LABS: Glucose,Whole Blood 124 mg/dL (75-99)
[2019-05-09] MEDS: ACETAMINOPHEN TAB 500 MG TAB PO PRN (14:57)
[2019-05-09 17:19] LABS: Glucose,Whole Blood 117 mg/dL (75-99)
[2019-05-09] MEDS: SERTRALINE 100 MG TAB PO SCH (21:17)
[2019-05-09 21:26] LABS: Glucose,Whole Blood 118 mg/dL (75-99)
--- NOTE | 2019-05-09 22:33 | PN ---
PROGRESS NOTE 48-year-old white female with bilateral pneumonia. Still states her eyes are getting itchy again after her eyedrops Pataday were stopped. She is currently on ertapenem and azithromycin, which is improving the patient. Ophthalmologic: Right eye itchy and red. Hematology: Negative Homans'. Psych: Fair mood and affect. CARDIOVASCULAR: S1-S2. LUNGS: Scattered wheeze x4. ASSESSMENT: 1. Sepsis, left upper lobe, right middle lobe. 2. Community-acquired pneumonia. 3. She had sputum Legionella titer. Continue Azactam, clindamycin, Invanz. Please see further orders. MMODL / IJN: [id number] /
--- NOTE | 2019-05-09 23:12 | PN ---
PROGRESS NOTE DATE OF SERVICE: 05/09/2019. REASON FOR FOLLOWUP: Pneumonia with MULTIPLE ANTIBIOTIC ALLERGIES. INTERVAL HISTORY: The patient is currently afebrile. The patient has been breathing comfortably. The patient still has some cough with occasional sputum production. No hemoptysis. No nausea, vomiting, abdominal pain, no diarrhea, and did not have any further rash. PHYSICAL EXAMINATION: Blood pressure 149/84, pulse of 59, temperature 98.1. General description is a middle aged female up in the bed in no distress. Respiratory system: Unlabored breathing with decreased breath sounds in the base, with no wheeze. Heart S1, S2. Regular rate and rhythm. Abdomen soft, no tenderness. LABS: White count normal 8.6. No CBC was done today. Sputum cultures currently pending. Blood culture has been negative. DIAGNOSTIC IMPRESSION AND PLAN: Patient admitted to the hospital with fever with respiratory symptoms and did have evidence of pneumonia, likely community-acquired in this patient who did have MULTIPLE ANTIBIOTIC ALLERGIES. Currently covered with Azactam and clindamycin. Will wait for the sputum culture to finalize to determine discharge antibiotics which could be oral or IV in view of MULTIPLE ANTIBIOTIC ALLERGIES. Repeat a chest x-ray tomorrow. Continue with Clinda, IV Invanz and Zithromax and continue supportive care. MMODL / IJN: [id number] /
[2019-05-10] MEDS: methylPREDNISolone SOD SUCCI 40 MG/ML 1 ML VIAL IV SCH ×4 (00:03→18:47)
[2019-05-10] MEDS: LEVOTHYROXINE 125 MCG TAB PO SCH (06:17)
[2019-05-10 06:24] LABS: Glucose,Whole Blood 114 mg/dL (75-99)
[2019-05-10] MEDS: INSULIN ASPART (NovoLOG) 100 UNIT/ML VIAL SQ SCH ×4 (06:30→21:16)
--- NOTE | 2019-05-10 07:38 | XR ---
EXAMINATION TYPE: XR chest 2V DATE OF EXAM: 05/10/2019 COMPARISON: 05/05/2019 INDICATION: Follow-up pneumoniaa TECHNIQUE: Frontal and lateral views of the chest are obtained. FINDINGS: The heart size is normal. The pulmonary vasculature is normal. The procedure faint residual nodule within the periphery of the left midlung. This is improved from c omparison. Resolving pneumonia could be considered. Underlying nodule is not excluded, continued follow-up is recommended. IMPRESSION: 1. There may be a nodule within the periphery of the left mid lung. Additional follow-up chest studie s are recommended. 2. Resolving right lower lobe infiltrate and pneumonia.
[2019-05-10] MEDS: LORATADINE 10 MG TAB PO SCH (08:18)
[2019-05-10] MEDS: lamoTRIgine 100 MG TAB PO SCH ×2 (08:18→21:24)
[2019-05-10] MEDS: PANTOPRAZOLE 40 MG TABLET PO SCH ×2 (08:18→21:24)
[2019-05-10] MEDS: AZITHROMYCIN 500 MG TAB PO SCH (08:19)
[2019-05-10] MEDS: ERTAPENEM 1 GM in SODIUM CHLORIDE 0.9% 50 ML IVPB SCH (08:19)
[2019-05-10] MEDS: SODIUM CHLORIDE 0.9% 1,000 ML IV SCH ×2 (08:20→21:24)
[2019-05-10] MEDS: KETOTIFEN 0.025% OPHTH DROPS 5 ML BTL BOTH EYES SCH ×2 (08:20→21:24)
[2019-05-10 12:00] LABS: Glucose,Whole Blood 114 mg/dL (75-99)
--- NOTE | 2019-05-10 14:45 | P.DS ---
Providers Date of admission: 05/05/19 20:17 Expected date of discharge: 05/10/19 Attending physician: Pato Duncan Consults: 05/06/19 17:14 Consult Physician Routine Consulting Provider: Sandra Hutchins Consult Reason/Comments: pneumonia, conjunctivitis Do you want consulting provider notified?: Yes 05/06/19 18:09 Consult Physician Routine Consulting Provider: Jorje Cohn Consult Reason/Comments: red eye Do you want consulting provider notified?: Yes 05/06/19 18:12 Consult Physician Routine Consulting Provider: Anjel Hurst Consult Reason/Comments: cap Do you want consulting provider notified?: Yes Primary care physician: [facility] Course: Final Diagnoses: -Sepsis present on admission secondary to bilateral lobe community-acquired pneumonia -Chronic asthma -Sputum Legionella titer pending -Possible left midlung nodule, further outpatient follow-up with pulmonary recommended. -Hypothyroidism Evaluated by pulmonary, infectious disease, ophthalmology. Maintained on IV antibiotics, nebulized bronchodilators. Significant clinical improvement. Patient is being discharged home pending clearance/discharge antibiotics from infectious disease, in a stable condition with chiropractic. GENERAL: Alert and oriented 3, in no acute distress LUNGS: Unlabored breathing. Decreased in the base No wheeze or crackle. HEART: S1, S2, regular rate and rhythm. No murmur ABDOMEN: Soft, no tenderness , guarding or rigidity, no organomegaly, positive bowel sounds NEUROLOGICAL: No focal deficits Microbiology 05/07/19 18:32 Sputum Gram Stain - Final 05/07/19 18:32 Sputum Sputum Culture - Final 05/05/19 17:00 Blood Blood Culture - Preliminary No Growth after 96 hours 05/05/19 17:45 Throat Group A Strep Throat Culture - Final The impression and plan of care has been dictated as directed. : I performed a history and examination of this patient, discussed the same with the dictator. I agree with the dictator's note ,documented as a scribe. Any additional findings or plans will be noted. Patient Condition at Discharge: Stable Plan - Discharge Summary Discharge Rx Participant: No New Discharge Prescriptions: New Artificial Tears-Hypromellose [Artificial Tear Drops] 1 drops BOTH EYES QID PRN bottle PRN Reason: Dry Eye(S) Loratadine [Claritin] 10 mg PO DAILY #0 tab predniSONE 10 mg PO DIRECTED #30 tab guaiFENesin SYRUP 100MG/5ML [Robitussin] 200 mg PO Q6H PRN cup PRN Reason: Cough Ketotifen 0.025% Ophth Soln [Zaditor] 1 drops BOTH EYES BID ml Albuterol Inhaler [Ventolin Hfa Inhaler] 2 puff INHALATION RT-Q6H PRN #1 inhaler PRN Reason: Shortness Of Breath Continue Sertraline [Zoloft] 100 mg PO HS Omeprazole 20 mg PO BID Levothyroxine Sodium [Synthroid] 125 mcg PO DAILY lamoTRIgine [LaMICtal] 150 mg PO BID Discharge Medication List Levothyroxine Sodium [Synthroid] 125 mcg PO DAILY 01/02/18 [History] Omeprazole 20 mg PO BID 01/02/18 [History] Sertraline [Zoloft] 100 mg PO HS 01/02/18 [History] lamoTRIgine [LaMICtal] 150 mg PO BID 05/05/19 [History] Albuterol Inhaler [Ventolin Hfa Inhaler] 2 puff INHALATION RT-Q6H PRN #1 inhaler 05/10/19 [Rx] Artificial Tears-Hypromellose [Artificial Tear Drops] 1 drops BOTH EYES QID PRN bottle 05/10/19 [Rx] Ketotifen 0.025% Ophth Soln [Zaditor] 1 drops BOTH EYES BID ml 05/10/19 [Rx] Loratadine [Claritin] 10 mg PO DAILY #0 tab 05/10/19 [Rx] guaiFENesin SYRUP 100MG/5ML [Robitussin] 200 mg PO Q6H PRN cup 05/10/19 [Rx] predniSONE 10 mg PO DIRECTED #30 tab 05/10/19 [Rx] Follow up Appointment(s)/Referral(s): Pato Duncan MD [Primary Care Provider] - 3 Days Jorje Cohn MD [STAFF PHYSICIAN] - 1 Week Anjel Hurst MD [STAFF PHYSICIAN] - 1 Week (F/U regarding Poss. Left midlung nodule.) Patient Instructions/Handouts: Fever in Adults (ED) Activity/Diet/Wound Care/Special Instructions: Pending Clearance/DC rec/Antibx as per Pulm. & ID
[2019-05-10 17:41] LABS: Glucose,Whole Blood 148 mg/dL (75-99)
[2019-05-10 20:40] LABS: Glucose,Whole Blood 114 mg/dL (75-99)
[2019-05-10] MEDS: SERTRALINE 100 MG TAB PO SCH (21:24)
--- NOTE | 2019-05-10 22:55 | PN ---
PROGRESS NOTE DATE OF SERVICE: 05/10/2019 REASON FOR FOLLOWUP: Pneumonia with MULTIPLE ANTIBIOTIC ALLERGIES. INTERVAL HISTORY: The patient is currently afebrile. The patient is breathing comfortably. The patient's cough has decreased in intensity. No chest pain. No nausea. No vomiting. No abdominal pain or diarrhea. PHYSICAL EXAMINATION: Blood pressure 151/90 with a pulse of 54, temperature 98.2. She is 95% on room air. General description is a middle-aged female up in the bed in no distress. RESPIRATORY SYSTEM: Unlabored breathing with decreased breath sounds at the base. No wheeze. HEART: S1, S2. Regular rate and rhythm. ABDOMEN: Soft. No tenderness. LABS: No new labs have been obtained today. Chest x-ray shows improvement. DIAGNOSTIC IMPRESSION AND PLAN: Patient with pneumonia, likely community-acquired, in this patient who has MULTIPLE ANTIBIOTIC ALLERGIES, currently covered with Invanz. In view of no good oral option available, recommend getting a midline for a week of IV Invanz. Once arranged, she will be able to go home from ID standpoint. Continue with supportive care. MMODL / IJN: [id number] /
[2019-05-11] MEDS: methylPREDNISolone SOD SUCCI 40 MG/ML 1 ML VIAL IV SCH ×2 (00:01→06:28)
[2019-05-11 06:21] LABS: Glucose,Whole Blood 133 mg/dL (75-99)
[2019-05-11] MEDS: LEVOTHYROXINE 125 MCG TAB PO SCH (06:28)
[2019-05-11] MEDS: INSULIN ASPART (NovoLOG) 100 UNIT/ML VIAL SQ SCH ×4 (06:28→23:25)
[2019-05-11] MEDS: ERTAPENEM 1 GM in SODIUM CHLORIDE 0.9% 50 ML IVPB SCH (08:42)
[2019-05-11] MEDS: lamoTRIgine 100 MG TAB PO SCH ×2 (08:43→21:00)
[2019-05-11] MEDS: LORATADINE 10 MG TAB PO SCH (08:43)
[2019-05-11] MEDS: AZITHROMYCIN 500 MG TAB PO SCH (08:43)
[2019-05-11] MEDS: PANTOPRAZOLE 40 MG TABLET PO SCH ×2 (08:43→21:01)
[2019-05-11] MEDS: KETOTIFEN 0.025% OPHTH DROPS 5 ML BTL BOTH EYES SCH ×2 (08:44→21:00)
[2019-05-11] MEDS: IPRATROPIUM-ALBUTEROL 3 ML NEB INHALATION PRN (10:05)
--- NOTE | 2019-05-11 10:59 | XR ---
EXAMINATION TYPE: XR chest 1V portable DATE OF EXAM: 05/11/2019 COMPARISON: 05/10/2019 HISTORY: Follow-up for bilateral pneumonia. Shortness of breath. TECHNIQUE: Single frontal view of the chest is obtained. FINDINGS: There is a persistent left midlung lateral opacity abutting the pleural surface unchanged from the prior. Minimal residual linear right basilar atelectasis. Remainder the lungs are well aerat ed. Cardiomediastinal silhouette is within normal limits. Pneumothorax is seen. No pleural effusion. Osseous structures are intact. IMPRESSION: Minimal residual right basal atelectasis and persistent left midlung rounded density. Fo llow up to resolution recommended to exclude nodule as discussed on the prior.
[2019-05-11 11:07] LABS: HCT 36.5 % (34.0-46.0); HGB 11.3 gm/dL (11.4-16.0); Hypochromasia Moderate; MCH 24.4 pg (25.0-35.0); MCHC 30.9 g/dL (31.0-37.0); Mean Platelet Volume 6.2; Platelet Count 393 k/uL (150-450); RBC 4.62 m/uL (3.80-5.40); RDW 15.6 % (11.5-15.5); WBC 10.6 k/uL (3.8-10.6)
[2019-05-11 11:21] LABS: African American GFR (CKD) >90 (>60 ml/min/1.73 sqM); Anion Gap 11 mmol/L; Blood Urea Nitrogen 18 mg/dL (7-17); Calcium 8.5 mg/dL (8.4-10.2); Carbon Dioxide 25 mmol/L (22-30); Chloride 104 mmol/L (98-107); Glucose 114 mg/dL (74-99); Potassium 3.3 mmol/L (3.5-5.1); Sodium 140 mmol/L (137-145)
[2019-05-11 12:15] LABS: Glucose,Whole Blood 96 mg/dL (75-99)
--- NOTE | 2019-05-11 12:31 | CT ---
EXAMINATION TYPE: CT chest angio for PE DATE OF EXAM: 05/11/2019 COMPARISON: Chest x-ray 05/11/2019, CT chest 05/06/2019 HISTORY: SOB, R/O PE CT DLP: 458.1 mGycm Automated exposure control for dose reduction was used. CONTRAST: CT Chest for pulmonary embolism performed with with IV Contrast, patient injected with 80 mL of Isovu e 370. Three-dimensional reconstructions on an alternate work station. FINDINGS: LUNGS: The lungs are similar in appearance, wedge-shaped pleural-based area airspace disease has impr lit somewhat in the right lower lobe and left upper lobe There is no pleural effusion or pneumothora x seen. The tracheobronchial tree is patent. MEDIASTINUM: There is satisfactory enhancement of the pulmonary artery and its branches, there is no CT evidence for pulmonary embolism. There are no greater than 1 cm hilar or mediastinal lymph nodes. No pericardial effusion is seen. AORTA: No additional significant abnormality is seen. OTHER: Surgical clips are present status post cholecystectomy. IMPRESSION: No evident pulmonary embolism. Correlate for pneumonia. There is improvement in airspace disease.
--- NOTE | 2019-05-11 13:15 | PN ---
PROGRESS NOTE DATE OF SERVICE: 05/11/2019 REASON FOR FOLLOWUP: Pneumonia with MULTIPLE ANTIBIOTIC ALLERGIES. INTERVAL HISTORY: The patient is currently afebrile. She has been breathing comfortably. Patient coughing decreased intensity, not bringing up any sputum. No nausea, vomiting. No abdominal pain or any diarrhea. PHYSICAL EXAMINATION: On examination, blood pressure 160/92 with a pulse of 53 temperature 98.2. She is 95% on room air. General description is a middle-aged female lying in bed in no distress. RESPIRATORY SYSTEM: Unlabored breathing, clear to auscultation anteriorly. HEART: S1, S2. Regular rate and rhythm. ABDOMEN: Soft, no tenderness. LABS: Hemoglobin is 11.3, white count 10.6, creatinine 0.58. Did have a CT angiogram that was negative for PE, did show overall improvement in her pneumonia. DIAGNOSTIC IMPRESSION AND PLAN: Patient admitted to the hospital with pneumonia, community acquired, in this patient who did have MULTIPLE ANTIBIOTIC ALLERGIES. Currently responding to Invanz. She got a Midline to continue with IV Invanz for another 6 to 7 days to finish a 2-week course of therapy. Monitor clinical course closely. In view of extensive infection and MULTIPLE ANTIBIOTIC ALLERGIES, continue supportive care. MMODL / IJN: [id number] /
[2019-05-11] MEDS ORDERED: Potassium Replacement Protocol 1 EACH MISC MISCELLANE PRN ×2 (15:28→16:44)
--- NOTE | 2019-05-11 15:33 | P.PN ---
Subjective Progress Note Date: 05/10/19 This is a 48-year-old female male with sepsis secondary to bilateral pneumonia and multiple other medical issues. Maintained on IV antibiotics, nebulized bronchodilators with significant clinical improvement. X-ray reports resolving, possible left midlung nodule, that will require further outpatient follow-up. Incentive spirometer up to 1999. Infectious disease recommending IV antibiotics at discharge, insurance authorization pending. Denies chest pain, palpitations or shortness of breath. Denies lightheadedness, dizziness or focal deficits. Afebrile, normal sputum culture. Objective - Vital Signs Vital signs: Vital Signs Temp 97.7 F 05/10/19 12:02 Pulse 56 L 05/10/19 12:02 Resp 20 05/10/19 12:02 BP 159/85 05/10/19 12:02 Pulse Ox 97 05/10/19 12:02 Intake & Output 05/09/19 05/10/19 05/10/19 18:59 06:59 18:59 Intake Total 1400 300 Balance 1400 300 Intake: Oral 1400 300 Other: # Voids 2 2 - Exam GENERAL: Alert and oriented 3, in no acute distress LUNGS: Unlabored breathing. Decreased in the base, mild expiratory wheezing, no crackles. HEART: S1, S2, regular rate and rhythm. No murmur ABDOMEN: Soft, no tenderness , guarding or rigidity, no organomegaly, positive bowel sounds NEUROLOGICAL: No focal deficits - Labs CBC & Chem 7: 05/11/19 10:43 05/11/19 10:43 Labs: Abnormal Lab Results - Last 24 Hours (Table) 05/09/19 05/09/19 05/10/19 Range/Units 17:16 21:26 06:23 POC Glucose (mg/dL) 117 H 118 H 114 H (75-99) mg/dL 05/10/19 Range/Units 11:58 POC Glucose (mg/dL) 114 H (75-99) mg/dL Microbiology - Last 24 Hours (Table) 05/07/19 18:32 Gram Stain - Final Sputum Sputum Culture - Final 05/05/19 17:00 Blood Culture - Preliminary Blood No Growth after 96 hours Assessment and Plan Assessment: -Sepsis present on admission secondary to bilateral lobe community-acquired pneumonia -Chronic asthma -Sputum Legionella titer pending -Possible left midlung nodule, further outpatient follow-up with pulmonary recommended. -Hypothyroidism Plan: Continue current medication regime ,monitoring and symptomatic treatment. Maintain nebulized bronchodilators, steroids, antibiotics. Aggressive pulmonary toileting and is doing well with incentive spirometer, reinforced. Discharge planning in progress pending insurance off of IV antibiotics, midline catheter placement. The impression and plan of care has been dictated as directed. : I performed a history and examination of this patient, discussed the same with the dictator. I agree with the dictator's note ,documented as a scribe. Any additional findings or plans will be noted.
[2019-05-11 17:03] LABS: Glucose,Whole Blood 99 mg/dL (75-99)
[2019-05-11] MEDS: POTASSIUM CHLORIDE ER 20 MEQ TAB.ER PO SCH ×2 (17:04→18:54)
[2019-05-11 20:41] LABS: Glucose,Whole Blood 95 mg/dL (75-99)
[2019-05-11] MEDS: SERTRALINE 100 MG TAB PO SCH (21:00)
[2019-05-11] MEDS: SODIUM CHLORIDE 0.9% 1,000 ML IV SCH (23:24)
[2019-05-11 23:51] VITALS: RESP 18
[2019-05-12] MEDS: LEVOTHYROXINE 125 MCG TAB PO SCH (06:40)
[2019-05-12 08:59] VITALS: BP 129/81; PULSE 66; TEMP 98.2
[2019-05-12] MEDS ORDERED: predniSONE 20 MG TAB PO SCH (09:00)
[2019-05-12] MEDS: ERTAPENEM 1 GM in SODIUM CHLORIDE 0.9% 50 ML IVPB SCH (09:18)
[2019-05-12] MEDS: AZITHROMYCIN 500 MG TAB PO SCH (09:20)
[2019-05-12] MEDS: KETOTIFEN 0.025% OPHTH DROPS 5 ML BTL BOTH EYES SCH (09:20)
[2019-05-12] MEDS: PANTOPRAZOLE 40 MG TABLET PO SCH (09:23)
[2019-05-12] MEDS: LORATADINE 10 MG TAB PO SCH (09:24)
[2019-05-12] MEDS: lamoTRIgine 100 MG TAB PO SCH (09:24)
--- NOTE | 2019-05-12 12:59 | P.PN ---
Subjective Progress Note Date: 05/10/19 Principal diagnosis: Bilateral pneumonia, acute hypoxic respiratory failure, history of GERD, sepsis, 05/10/2019, patient seen eval examined during the rounds shortness of breath is slightly better remains on antibiotics breathing treatments wheezing Chest x-ray recently includes slow resolving pneumonia, patient has been getting out of bed and moving around 48-year-old M into the hospital with one-day history of increasing shortness of breath cough and fever which is progressively getting better she came into the hospital found to have a bilateral pneumonia her baseline problems are significant for vitamin B12 deficiency hypothyroidism and chronic anemia, she has been started on IV Rocephin and Zithromax developed a rash-like process with Rocephin has been discontinued currently patient is just on by mouth Zithromax review of the computed tomography scan revealed that patient has a very dense pneumonia in the right lower lobe and left upper lobe her chest pain likely related to her left upper lobe process has very close to chest wall patient likely needs broad-spectrum antibiotics for mixed bacterial pneumonia gram- negative so she is being placed on aztreonam with clindamycin labs reviewed medications reviewed care plan discussed with the staff at length, she has some loose stool and diarrhea now it's caring stable, in addition patient has been is currently complaining of scratchy throat which seems to have stabilized now rapid strep as well as flow has been negative unable to obtain the sputum, blood cultures in the last 24 hours have been negative Objective - Vital Signs Vital signs: Vital Signs Temp 97.7 F 05/10/19 12:02 Pulse 56 L 05/10/19 12:02 Resp 20 05/10/19 12:02 BP 159/85 05/10/19 12:02 Pulse Ox 97 05/10/19 12:02 Intake & Output 05/09/19 05/10/19 05/10/19 18:59 06:59 18:59 Intake Total 1400 300 Balance 1400 300 Intake: Oral 1400 300 Other: # Voids 2 2 - Exam - Constitutional General appearance: average body habitus, cooperative, disheveled - EENT Eyes: EOMI, PERRLA, poor dentition, normal appearance ENT: normal oropharynx Ears: bilateral: normal - Neck Carotids: bilateral: upstroke normal, bruit absent Thyroid: bilateral: normal size - Respiratory Respiratory: right: rales (Predominantly on the right base), bilateral: diminished - Cardiovascular Rhythm: regular Heart sounds: normal: S1, S2 - Gastrointestinal General gastrointestinal: normal bowel sounds - Neurologic Neurologic: CNII-XII intact - Musculoskeletal Musculoskeletal: gait normal, generalized weakness, strength equal bilaterally - Psychiatric Psychiatric: A&O x's 3, appropriate affect, intact judgment & insight - Labs CBC & Chem 7: 05/11/19 10:43 05/12/19 09:23 Labs: Abnormal Lab Results - Last 24 Hours (Table) 05/09/19 05/09/19 05/10/19 Range/Units 17:16 21:26 06:23 POC Glucose (mg/dL) 117 H 118 H 114 H (75-99) mg/dL 05/10/19 Range/Units 11:58 POC Glucose (mg/dL) 114 H (75-99) mg/dL Microbiology - Last 24 Hours (Table) 05/07/19 18:32 Gram Stain - Final Sputum Sputum Culture - Final 05/05/19 17:00 Blood Culture - Preliminary Blood No Growth after 96 hours Assessment and Plan Assessment: Bilateral pneumonia Early sepsis due to pneumonia Hypothyroidism Chronic asthma Hypoxic respiratory failure due to above Plan: Broad-spectrum antibiotics given the ALLERGIC ID consultation is being consulted for antibiotics recommended Gentle hydration Bronchodilator Other recommendations pending plan of care as per clinical response of the patient Time with Patient: Greater than 30
--- NOTE | 2019-05-12 13:01 | P.PN ---
Subjective Progress Note Date: 05/11/19 Principal diagnosis: Bilateral pneumonia, acute hypoxic respiratory failure, history of GERD, sepsis, 05/11/2019, patient seen eval reexamined during the rounds had an episode thou ght to be related to IV steroids with anxiety palpitation and tachycardia computed tomography scan is negative for pulmonary embolism, the pneumonia seems to be resolving patient likely will be discharged on Invanz as she has a midline on antibiotics as recommended by infectious disease services, 05/10/2019, patient seen eval examined during the rounds shortness of breath is slightly better remains on antibiotics breathing treatments wheezing Chest x-ray recently includes slow resolving pneumonia, patient has been getting out of bed and moving around 48-year-old M into the hospital with one-day history of increasing shortness of breath cough and fever which is progressively getting better she came into the hospital found to have a bilateral pneumonia her baseline problems are significant for vitamin B12 deficiency hypothyroidism and chronic anemia, she has been started on IV Rocephin and Zithromax developed a rash-like process with Rocephin has been discontinued currently patient is just on by mouth Zithromax review of the computed tomography scan revealed that patient has a very dense pneumonia in the right lower lobe and left upper lobe her chest pain likely related to her left upper lobe process has very close to chest wall patient likely needs broad-spectrum antibiotics for mixed bacterial pneumonia gram- negative so she is being placed on aztreonam with clindamycin labs reviewed medications reviewed care plan discussed with the staff at length, she has some loose stool and diarrhea now it's caring stable, in addition patient has been is currently complaining of scratchy throat which seems to have stabilized now rapid strep as well as flow has been negative unable to obtain the sputum, blood cultures in the last 24 hours have been negative Objective - Vital Signs Vital signs: Vital Signs Temp 97.8 F 05/11/19 15:58 Pulse 50 L 05/11/19 15:58 Resp 18 05/11/19 16:00 BP 152/81 05/11/19 15:58 Pulse Ox 96 05/11/19 15:58 Intake & Output 05/10/19 05/11/19 05/11/19 18:59 06:59 18:59 Intake Total 300 1400 120 Balance 300 1400 120 Intake: Oral 300 1400 120 Other: # Voids 2 - Exam - Constitutional General appearance: average body habitus, cooperative, disheveled - EENT Eyes: EOMI, PERRLA, poor dentition, normal appearance ENT: normal oropharynx Ears: bilateral: normal - Neck Carotids: bilateral: upstroke normal, bruit absent Thyroid: bilateral: normal size - Respiratory Respiratory: right: rales (Predominantly on the right base), bilateral: diminished - Cardiovascular Rhythm: regular Heart sounds: normal: S1, S2 - Gastrointestinal General gastrointestinal: normal bowel sounds - Neurologic Neurologic: CNII-XII intact - Musculoskeletal Musculoskeletal: gait normal, generalized weakness, strength equal bilaterally - Psychiatric Psychiatric: A&O x's 3, appropriate affect, intact judgment & insight - Labs CBC & Chem 7: 05/11/19 10:43 05/12/19 09:23 Labs: Abnormal Lab Results - Last 24 Hours (Table) 05/10/19 05/11/19 05/11/19 Range/Units 20:38 06:20 10:43 Hgb 11.3 L (11.4-16.0) gm/dL MCV 79.0 L (80.0-100.0) fL MCH 24.4 L (25.0-35.0) pg MCHC 30.9 L (31.0-37.0) g/dL RDW 15.6 H (11.5-15.5) % Potassium (3.5-5.1) mmol/L BUN (7-17) mg/dL Glucose (74-99) mg/dL POC Glucose (mg/dL) 114 H 133 H (75-99) mg/dL 05/11/19 Range/Units 10:43 Hgb (11.4-16.0) gm/dL MCV (80.0-100.0) fL MCH (25.0-35.0) pg MCHC (31.0-37.0) g/dL RDW (11.5-15.5) % Potassium 3.3 L (3.5-5.1) mmol/L BUN 18 H (7-17) mg/dL Glucose 114 H (74-99) mg/dL POC Glucose (mg/dL) (75-99) mg/dL Microbiology - Last 24 Hours (Table) 05/05/19 17:00 Blood Culture - Preliminary Blood No Growth after 120 hours Assessment and Plan Assessment: Bilateral pneumonia Early sepsis due to pneumonia Hypothyroidism Chronic asthma Plan: Broad-spectrum antibiotics given the ALLERGIC reaction patient is being started on aztreonam with clindamycin we'll continue Zithromax Gentle hydration Bronchodilator Other recommendations pending plan of care as per clinical response of the patient Time with Patient: Greater than 30
== END 2019-05-12 10:30 | disposition home or self-care (01) | DRG 871 ==
LOC: EC 16:21 → 6PED 20:17
PROVIDERS: ADMIT Family Medicine; ATTEND Family Medicine
PROC: 05H833Z Insertion of Infusion Device into Left Axillary Vein, Percutaneous Approach (ICD-10-PCS; principal; 2019-05-11 10:45)
DX: A41.9 Sepsis, unspecified organism (principal); J18.1 Lobar pneumonia, unspecified organism; J96.01 Acute respiratory failure with hypoxia; G62.9 Polyneuropathy, unspecified; R13.10 Dysphagia, unspecified; K76.0 Fatty (change of) liver, not elsewhere classified; E03.9 Hypothyroidism, unspecified; H10.9 Unspecified conjunctivitis; J45.909 Unspecified asthma, uncomplicated; K21.9 Gastro-esophageal reflux disease without esophagitis; E53.8 Deficiency of other specified B group vitamins; F32.9 Major depressive disorder, single episode, unspecified; F41.9 Anxiety disorder, unspecified; K44.9 Diaphragmatic hernia without obstruction or gangrene; R19.7 Diarrhea, unspecified; R91.1 Solitary pulmonary nodule; Z79.890 Hormone replacement therapy; Z79.899 Other long term (current) drug therapy; Z88.1 Allergy status to other antibiotic agents; Z88.0 Allergy status to penicillin; Z87.891 Personal history of nicotine dependence; Z90.49 Acquired absence of other specified parts of digestive tract; Z98.51 Tubal ligation status; Z82.49 Family history of ischemic heart disease and other diseases of the circulatory system; Z82.5 Family history of asthma and other chronic lower respiratory diseases; Z83.49 Family history of other endocrine, nutritional and metabolic diseases
CPT/HCPCS: 36410; 36415; 71045; 71046; 71250; 71275; 76937; 80048; 80053; 81001; 83605; 84132; 84484; 85025; 85027; 87040; 87070; 87081; 87205; 87324; 87430; 87449; 87502; 93005; 94640; 96361; 96374; 99284

== ENCOUNTER 2019-06-10 18:34 | Emergency (ER) | payer OTHER ==
[2019-06-10 18:39] VITALS: BP 151/99; PULSE 70; RESP 16; TEMP 98.4
[2019-06-10] MEDS ORDERED: DIPH,PERTUS(ACELL)TETVAC-LF 0.5 ML VIAL IM ONE (18:46)
--- NOTE | 2019-06-10 18:49 | ED ---
General Adult HPI - General Chief complaint: Skin/Abscess/Foreign Body Stated complaint: foreign body in finger Time Seen by Provider: 06/10/19 18:37 Source: patient Mode of arrival: ambulatory Limitations: no limitations - History of Present Illness Initial comments: Patient is a 48-year-old female presenting to emergency Department with a chief complaint of a foreign body in the finger. Patient reports she was washing dishes when she a wooden splinter on the distal on the left second digit. Patient reports she attempted to remove but was unable to. Patient states it tetanus status is not up-to-date. Patient reports the pain is minimal at this point. Patient went to an urgent care and she was referred to come to the ED for removal. Patient has full range of motion in the finger. Patient denies taking medications To alleviate the symptoms - Related Data Home Medications Medication Instructions Recorded Confirmed Levothyroxine Sodium [Synthroid] 125 mcg PO DAILY 01/02/18 05/05/19 Omeprazole 20 mg PO BID 01/02/18 05/05/19 Sertraline [Zoloft] 100 mg PO HS 01/02/18 05/05/19 lamoTRIgine [LaMICtal] 150 mg PO BID 05/05/19 05/05/19 Previous Rx's Medication Instructions Recorded Albuterol Inhaler [Ventolin Hfa 2 puff INHALATION RT-Q6H PRN #1 05/10/19 Inhaler] inhaler Artificial Tears-Hypromellose 1 drops BOTH EYES QID PRN bottle 05/10/19 [Artificial Tear Drops] Ketotifen 0.025% Ophth Soln 1 drops BOTH EYES BID ml 05/10/19 [Zaditor] Loratadine [Claritin] 10 mg PO DAILY #0 tab 05/10/19 guaiFENesin SYRUP 100MG/5ML 200 mg PO Q6H PRN cup 05/10/19 [Robitussin] predniSONE 10 mg PO DIRECTED #30 tab 05/10/19 Ertapenem [INVanz] 1 gm IVPB Q24H #7 bag 05/11/19 Doxycycline Monohydrate [Monodox] 100 mg PO BID #10 cap 06/10/19 Allergies Allergy/AdvReac Type Severity Reaction Status Date / Time amoxicillin Allergy Rash/Hives Verified 06/10/19 18:37 ceftriaxone Allergy Rash/Hives Verified 06/10/19 18:37 levofloxacin [From Levaquin] Allergy Rash/Hives Verified 06/10/19 18:37 Penicillins Allergy Rash/Hives Verified 06/10/19 18:37 Review of Systems ROS Statement: Those systems with pertinent positive or pertinent negative responses have been documented in the HPI. ROS Other: All systems not noted in ROS Statement are negative. 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 HIATAL HERNIA. History of Any Multi-Drug Resistant Organisms: None Reported Past Surgical History: Appendectomy, Cholecystectomy, Orthopedic Surgery, Tubal Ligation Additional Past Surgical History / Comment(s): Torn ACL-Right KNEE Surgery. EGD, COLONOSCOPY Past Anesthesia/Blood Transfusion Reactions: No Reported Reaction Past Psychological History: Anxiety, Bipolar, Depression Smoking Status: Former smoker Past Alcohol Use History: Rare Past Drug Use History: None Reported - Past Family History Father Family Medical History: Congestive Heart Failure (CHF), Hypertension Mother Family Medical History: COPD, Thyroid Disorder General Exam Limitations: no limitations General appearance: alert, in no apparent distress Head exam: Present: atraumatic, normocephalic, normal inspection Eye exam: Present: normal appearance Pupils: Present: normal accommodation ENT exam: Present: normal exam, normal oropharynx, mucous membranes moist Neck exam: Present: normal inspection, full ROM Respiratory exam: Present: normal lung sounds bilaterally Cardiovascular Exam: Present: regular rate, normal rhythm Extremities exam: Present: full ROM, tenderness (I'll tenderness), normal capillary refill, other (+2 ulnar and radial pulses. Patient neurovascularly intact in the left upper extremity.). Absent: normal inspection (Wooden splinter on distal end of the left second digit) Back exam: Present: normal inspection, full ROM Neurological exam: Present: alert, oriented X3 Psychiatric exam: Present: normal affect, normal mood Skin exam: Present: warm, dry, intact, normal color Course Vital Signs 06/10/19 18:37 Temperature 98.4 F Pulse Rate 70 Respiratory 16 Rate Blood Pressure 151/99 O2 Sat by Pulse 99 Oximetry Procedures - Forgein Body Removal Soft Tissue Consent Obtained: verbal consent Site: hand Amount (mLs): 0 Foreign Body Suspected: Wood Foreign Body Removed: yes Foreign Body Removal Technique: Instrumentation Patient Tolerated Procedure: well, no complications Medical Decision Making - Medical Decision Making Patient is a 48-year-old female presenting to the emergency department with chief complaint of a foreign body finger. X-ray is negative. Patient was given tetanus prophylaxis. I was able to remove the foreign body with pliers. Patient tolerated procedure well. No anesthesia necessary. Patient given antibiotics to prevent an infection. Strict return parameters were thoroughly discussed the patient was understanding and agreeable. Case discussed with physician. Disposition Clinical Impression: Foreign body of finger of left hand Disposition: HOME SELF-CARE Condition: Stable Instructions (If sedation given, give patient instructions): Soft Tissue Foreign Body (ED) Additional Instructions: Please follow with primary care. Return to the emergency department if symptoms worsen. Prescriptions: Doxycycline Monohydrate [Monodox] 100 mg PO BID #10 cap Is patient prescribed a controlled substance at d/c from ED?: No Referrals: Pato Duncan MD [Primary Care Provider] - 1-2 days Time of Disposition: 19:26
--- NOTE | 2019-06-10 19:22 | XR ---
EXAMINATION TYPE: XR hand limited LT DATE OF EXAM: 06/10/2019 COMPARISON: NONE HISTORY: Second digit foreign body TECHNIQUE: 2 views. I see no fracture nor dislocation. There is no sign of radiopaque foreign body. Joint spaces are nor mal. IMPRESSION: No fracture. No sign of a radiopaque foreign body. A wooden slivers probably not visible on a plain x-ray.
== END 2019-06-10 19:30 | disposition home or self-care (01) ==
LOC: EC 18:34
DX: S60.451A Superficial foreign body of left index finger, initial encounter (principal); E07.9 Disorder of thyroid, unspecified; K21.9 Gastro-esophageal reflux disease without esophagitis; F41.9 Anxiety disorder, unspecified; F31.9 Bipolar disorder, unspecified; G62.9 Polyneuropathy, unspecified; Z79.899 Other long term (current) drug therapy; Z87.891 Personal history of nicotine dependence; Z88.1 Allergy status to other antibiotic agents; Z23 Encounter for immunization; Z88.0 Allergy status to penicillin; Z79.890 Hormone replacement therapy; W45.8XXA Other foreign body or object entering through skin, initial encounter; Y93.G1 Activity, food preparation and clean up
CPT/HCPCS: 10120; 90471; 90715; 99283

== ENCOUNTER → 2019-08-19 | Outpatient (CLI) | payer OTHER ==
--- NOTE | 2019-08-20 08:59 | XR ---
EXAMINATION TYPE: XR chest 2V DATE OF EXAM: 08/19/2019 COMPARISON: 05/11/2019 HISTORY: Shortness of breath, cough and weakness TECHNIQUE: Frontal and lateral views of the chest are obtained. FINDINGS: There is no focal air space opacity, pleural effusion, or pneumothorax seen. The cardiac silhouette size is within normal limits. The osseous structures are intact. Mild multilevel degener ative change of the spine. Cholecystectomy clips are seen. IMPRESSION: No acute cardiopulmonary process.
== END | disposition home or self-care (01) ==
LOC: RADXRMAIN 16:39
PROVIDERS: ATTEND Internal Medicine
DX: R06.02 Shortness of breath (principal); R05 Cough; R68.83 Chills (without fever); R06.4 Hyperventilation
CPT/HCPCS: 71046

== ENCOUNTER → 2021-02-21 | Outpatient (CLI) | payer OTHER ==
--- NOTE | 2021-02-21 11:47 | XR ---
EXAMINATION TYPE: XR knee complete LT DATE OF EXAM: 02/21/2021 COMPARISON: None HISTORY: Fall heard pop TECHNIQUE: 3 view left knee FINDINGS: No acute fracture or dislocation is evident. Some mild joint space narrowing may be present diffusely. No joint effusion is evident. IMPRESSION: 1. No acute or subacute osseous abnormality. 2. Mild diffuse degenerative joint changes
--- NOTE | 2021-02-21 11:49 | XR ---
EXAMINATION TYPE: XR hand complete RT DATE OF EXAM: 02/21/2021 COMPARISON: None HISTORY: Fall, complaining of looseness TECHNIQUE: 3 view right hand FINDINGS: No acute fractures or dislocations are evident. Joint spaces are preserved. Soft tissues ar e normal. IMPRESSION: 1. Normal three-view right hand
== END | disposition home or self-care (01) ==
LOC: RADXRMAIN 11:16
PROVIDERS: ATTEND Nurse Practitioner Adult Health
DX: M17.12 Unilateral primary osteoarthritis, left knee (principal); Z04.3 Encounter for examination and observation following other accident

== ENCOUNTER → 2021-04-02 | Outpatient (CLI) | payer OTHER ==
--- NOTE | 2021-04-03 04:13 | MR ---
EXAMINATION TYPE: MR hand RT wo con DATE OF EXAM: 04/02/2021 COMPARISON: None HISTORY: Weakness of right hand, limited movement, fell at home, injured middle finger Multiplanar multiecho imaging of the right hand without contrast. The metacarpals are intact. Carpal bones appear intact. There is no subluxation. I see no fracture no r dislocation. The middle finger appears intact. Flexor tendons of the hand appear intact. I see no b soco destructive process. There is no evidence of a soft tissue mass. IMPRESSION: Negative MR scan of the right hand. No evidence of any significant arthritic disease. No fracture.
--- NOTE | 2021-04-03 07:40 | MR ---
EXAMINATION TYPE: MR knee LT wo con DATE OF EXAM: 04/02/2021 COMPARISON: Left knee x-ray February 21, 2021. HISTORY: Left knee pain, locking, and swelling after fall injury 6 months ago. TECHNIQUE: Multiplanar, multisequence imaging of the left knee is performed without IV contrast. FINDINGS: MEDIAL MENISCUS: Medial extrusion medial meniscus on coronal images. Abnormal horizontal signal exten ds posterior horn into the central body without definitive extension to articular surface. LATERAL MENISCUS: Anterior and posterior horns are intact without tear. CRUCIATE LIGAMENTS: The anterior and posterior cruciate ligaments are intact and unremarkable. COLLATERAL LIGAMENTS: The medial collateral ligament and lateral collateral ligament complex are inta ct. Mild fluid signal surrounds the medial collateral ligament. EXTENSOR MECHANISM: Visualized quadriceps and patellar tendons are intact. EFFUSION: Moderate to large size suprapatellar joint effusion with thin septa. POPLITEAL CYST: No popliteal/[place] cyst. TRICOMPARTMENT SPACES: Fairly moderate tricompartment joint space loss. No significant spurring. CARTILAGE: Tricompartment joint space loss greatest medial tibiofemoral compartment where near full-t hickness loss is present BONE MARROW SIGNAL: Subtle low T1 and increased T2 signal medial aspect medial tibial femoral compart ment. OTHER: Cystic change near fibular head suspected ganglion cyst. IMPRESSION: 1. Mild to Moderate tricompartment degenerative changes greatest medial tibiofemoral compartment as d etailed above, favor product of osteoarthritis. 2. At least intrasubstance tear posterior horn medial meniscus extending into central body. No defini tive full-thickness meniscal tear. 3. Moderate to large-sized suprapatellar joint effusion with suggestion of mild synovitis. 4. Mild MCL sprain injury.
== END | disposition home or self-care (01) ==
LOC: RADMRIMAIN 05:50
PROVIDERS: ATTEND Internal Medicine
DX: M23.222 Derangement of posterior horn of medial meniscus due to old tear or injury, left knee (principal); M23.632 Other spontaneous disruption of medial collateral ligament of left knee; M17.12 Unilateral primary osteoarthritis, left knee

== ENCOUNTER 2021-04-04 12:22 | Emergency (ER) | payer OTHER ==
[2021-04-04 12:33] VITALS: RESP 18
[2021-04-04] MEDS ORDERED: SODIUM CHLORIDE 0.9% 500 ML 500 ML IV STA (12:47)
--- NOTE | 2021-04-04 13:21 | ED ---
General Adult HPI - General Chief complaint: Upper Respiratory Infection Stated complaint: Spitting up Blood/SOB Time Seen by Provider: 04/04/21 12:35 Source: patient, RN notes reviewed Mode of arrival: ambulatory Limitations: no limitations - History of Present Illness Initial comments: This a 50-year-old female presents emergency Department with chief complaint of cough congestion, coughing up blood. Patient states that shows some congestion 4 days ago but last 2 days she is coughed up some blood. She has no complaints of chest and no pleuritic pain no history of DVT, PE she is no respiratory history. Patient has not taken any blood thinners. Patient states that she was occasional smoker years ago denies any nausea vomiting diarrhea constipation no history: 19. - Related Data Home Medications Medication Instructions Recorded Confirmed Levothyroxine Sodium [Synthroid] 125 mcg PO DAILY 01/02/18 04/04/21 Sertraline [Zoloft] 100 mg PO HS 01/02/18 04/04/21 lamoTRIgine [LaMICtal] 150 mg PO BID 05/05/19 04/04/21 Azelastine HCl [Astepro] 1 spray EA NOSTRIL BID PRN 04/04/21 04/04/21 Cholecalciferol [Vitamin D3 (25 25 mcg PO DAILY 04/04/21 04/04/21 Mcg = 1000 Iu)] Ferrous Sulfate [Feosol] 325 mg PO HS 04/04/21 04/04/21 Fluticasone Nasal [place] [Flonase 2 spr EA NOSTRIL DAILY PRN 04/04/21 04/04/21 Nasal [place]] Omeprazole 40 mg PO DAILY 04/04/21 04/04/21 buPROPion XL [Wellbutrin XL] 150 mg PO DAILY 04/04/21 04/04/21 Previous Rx's Medication Instructions Recorded Azithromycin [Zithromax] 500 mg PO DAILY #5 tab 04/04/21 Allergies Allergy/AdvReac Type Severity Reaction Status Date / Time amoxicillin Allergy Rash/Hives Verified 04/04/21 13:24 ceftriaxone Allergy Rash/Hives Verified 04/04/21 13:24 levofloxacin [From Levaquin] Allergy Rash/Hives Verified 04/04/21 13:24 Penicillins Allergy Rash/Hives Verified 04/04/21 13:24 Review of Systems ROS Statement: Those systems with pertinent positive or pertinent negative responses have been documented in the HPI. ROS Other: All systems not noted in ROS Statement are negative. 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 HIATAL HERNIA. History of Any Multi-Drug Resistant Organisms: None Reported Past Surgical History: Appendectomy, Cholecystectomy, Orthopedic Surgery, Tubal Ligation Additional Past Surgical History / Comment(s): Torn ACL-Right KNEE Surgery. EGD, COLONOSCOPY Past Anesthesia/Blood Transfusion Reactions: No Reported Reaction Past Psychological History: Anxiety, Bipolar, Depression Smoking Status: Never smoker Past Alcohol Use History: Rare Past Drug Use History: None Reported - Past Family History Father Family Medical History: Congestive Heart Failure (CHF), Hypertension Mother Family Medical History: COPD, Thyroid Disorder General Exam Limitations: no limitations General appearance: alert, in no apparent distress Head exam: Present: atraumatic, normocephalic, normal inspection Eye exam: Present: normal appearance, PERRL, EOMI. Absent: scleral icterus, conjunctival injection, periorbital swelling ENT exam: Present: normal exam, normal oropharynx, mucous membranes moist Neck exam: Present: normal inspection, full ROM. Absent: tenderness, meningismus, lymphadenopathy Respiratory exam: Present: normal lung sounds bilaterally. Absent: respiratory distress, wheezes, rales, rhonchi, stridor Cardiovascular Exam: Present: regular rate, normal rhythm, normal heart sounds. Absent: systolic murmur, diastolic murmur, rubs, gallop, clicks GI/Abdominal exam: Present: soft, normal bowel sounds. Absent: distended, tenderness, guarding, rebound, rigid Neurological exam: Present: alert, oriented X3 Skin exam: Present: warm, dry, intact, normal color. Absent: rash Course Vital Signs 04/04/21 04/04/21 12:28 13:58 Temperature 98 F Pulse Rate 66 71 Respiratory 18 18 Rate Blood Pressure 162/97 126/72 O2 Sat by Pulse 98 96 Oximetry Medical Decision Making - Medical Decision Making Chest x-ray shows evidence of right lower lobe pneumonia. Patient's COVID-19 is negative d-dimer is negative patient discharged on azithromycin as she has ALLERGY to amoxicillin, Rocephin, Levaquin - Lab Data Result diagrams: 04/04/21 13:04/04/21 13:09 Lab Results 04/04/21 04/04/21 04/04/21 Range/Units 13:09 13:09 13:09 WBC 11.0 H (3.8-10.6) k/uL RBC 4.82 (3.80-5.40) m/uL Hgb 14.1 (11.4-16.0) gm/dL Hct 42.8 (34.0-46.0) % MCV 88.7 (80.0-100.0) fL MCH 29.2 (25.0-35.0) pg MCHC 32.9 (31.0-37.0) g/dL RDW 14.1 (11.5-15.5) % Plt Count 283 (150-450) k/uL MPV 7.6 Neutrophils % 74 % Lymphocytes % 17 % Monocytes % 4 % Eosinophils % 3 % Basophils % 0 % Neutrophils # 8.1 H (1.3-7.7) k/uL Lymphocytes # 1.9 (1.0-4.8) k/uL Monocytes # 0.5 (0-1.0) k/uL Eosinophils # 0.3 (0-0.7) k/uL Basophils # 0.1 (0-0.2) k/uL PT 9.8 (9.0-12.0) sec INR 0.9 (<1.2) APTT 24.2 (22.0-30.0) sec D-Dimer 0.39 (<0.60) mg/L FEU Sodium 139 (137-145) mmol/L Potassium 3.9 (3.5-5.1) mmol/L Chloride 104 (98-107) mmol/L Carbon Dioxide 24 (22-30) mmol/L Anion Gap 11 mmol/L BUN 15 (7-17) mg/dL Creatinine 0.57 (0.52-1.04) mg/dL Est GFR (CKD-EPI)AfAm >90 (>60 ml/min/1.73 sqM) Est GFR (CKD-EPI)NonAf >90 (>60 ml/min/1.73 sqM) Glucose 103 H (74-99) mg/dL Calcium 9.0 (8.4-10.2) mg/dL Magnesium 2.0 (1.6-2.3) mg/dL Total Bilirubin 0.6 (0.2-1.3) mg/dL AST 44 H (14-36) U/L ALT 54 H (4-34) U/L Alkaline Phosphatase 106 (38-126) U/L Troponin I (0.000-0.034) ng/mL NT-Pro-B Natriuret Pep pg/mL Total Protein 7.2 (6.3-8.2) g/dL Albumin 4.1 (3.5-5.0) g/dL Coronavirus (PCR) (Not Detectd) 04/04/21 04/04/21 04/04/21 Range/Units 13:09 13:09 13:09 WBC (3.8-10.6) k/uL RBC (3.80-5.40) m/uL Hgb (11.4-16.0) gm/dL Hct (34.0-46.0) % MCV (80.0-100.0) fL MCH (25.0-35.0) pg MCHC (31.0-37.0) g/dL RDW (11.5-15.5) % Plt Count (150-450) k/uL MPV Neutrophils % % Lymphocytes % % Monocytes % % Eosinophils % % Basophils % % Neutrophils # (1.3-7.7) k/uL Lymphocytes # (1.0-4.8) k/uL Monocytes # (0-1.0) k/uL Eosinophils # (0-0.7) k/uL Basophils # (0-0.2) k/uL PT (9.0-12.0) sec INR (<1.2) APTT (22.0-30.0) sec D-Dimer (<0.60) mg/L FEU Sodium (137-145) mmol/L Potassium (3.5-5.1) mmol/L Chloride (98-107) mmol/L Carbon Dioxide (22-30) mmol/L Anion Gap mmol/L BUN (7-17) mg/dL Creatinine (0.52-1.04) mg/dL Est GFR (CKD-EPI)AfAm (>60 ml/min/1.73 sqM) Est GFR (CKD-EPI)NonAf (>60 ml/min/1.73 sqM) Glucose (74-99) mg/dL Calcium (8.4-10.2) mg/dL Magnesium (1.6-2.3) mg/dL Total Bilirubin (0.2-1.3) mg/dL AST (14-36) U/L ALT (4-34) U/L Alkaline Phosphatase (38-126) U/L Troponin I <0.012 (0.000-0.034) ng/mL NT-Pro-B Natriuret Pep 156 pg/mL Total Protein (6.3-8.2) g/dL Albumin (3.5-5.0) g/dL Coronavirus (PCR) Not Detected (Not Detectd) Disposition Clinical Impression: Pneumonia Disposition: HOME SELF-CARE Condition: Stable Instructions (If sedation given, give patient instructions): Pneumonia (ED) Additional Instructions: Please return to the Emergency Department if symptoms worsen or any other concerns. Prescriptions: Azithromycin [Zithromax] 500 mg PO DAILY #5 tab Is patient prescribed a controlled substance at d/c from ED?: No Referrals: Neal Jacobs MD [Primary Care Provider] - 1-2 days Time of Disposition: 14:37
--- NOTE | 2021-04-04 13:24 | XR ---
EXAMINATION TYPE: XR chest 2V DATE OF EXAM: 04/04/2021 COMPARISON: 08/19/2019 INDICATION: Difficulty breathing TECHNIQUE: Frontal and lateral views of the chest are obtained. FINDINGS: The heart size is normal. The pulmonary vasculature is normal. Patchy infiltrate is present through the right lung. Correlate for pneumonia. Atypical pneumonia coul d be considered. IMPRESSION: 1. Right lower lobe infiltrate can be compatible with pneumonia. Consider atypical pneumonia.
[2021-04-04 13:36] LABS: Basophils # (A) 0.1 k/uL (0-0.2); Basophils % (A) 0 %; Eosinophils # (A) 0.3 k/uL (0-0.7); Eosinophils % (A) 3 %; HCT 42.8 % (34.0-46.0); HGB 14.1 gm/dL (11.4-16.0); Lymphocytes # (A) 1.9 k/uL (1.0-4.8); Lymphocytes % (A) 17 %; MCH 29.2 pg (25.0-35.0); MCHC 32.9 g/dL (31.0-37.0); MCV 88.7 fL (80.0-100.0); Mean Platelet Volume 7.6; Monocytes # (A) 0.5 k/uL (0-1.0); Monocytes % (A) 4 %; Neutrophils # (A) 8.1 k/uL (1.3-7.7); Neutrophils % (A) 74 %; Platelet Count 283 k/uL (150-450); RBC 4.82 m/uL (3.80-5.40); RDW 14.1 % (11.5-15.5)
[2021-04-04 13:51] LABS: ALT 54 U/L (4-34); AST 44 U/L (14-36); African American GFR (CKD) >90 (>60 ml/min/1.73 sqM); Albumin 4.1 g/dL (3.5-5.0); Alkaline Phosphatase 106 U/L (38-126); Anion Gap 11 mmol/L; Blood Urea Nitrogen 15 mg/dL (7-17); Carbon Dioxide 24 mmol/L (22-30); Chloride 104 mmol/L (98-107); Glucose 103 mg/dL (74-99); Non-African American GFR(CKD) >90 (>60 ml/min/1.73 sqM); Potassium 3.9 mmol/L (3.5-5.1); Sodium 139 mmol/L (137-145); Total Bilirubin 0.6 mg/dL (0.2-1.3); Total Protein 7.2 g/dL (6.3-8.2)
[2021-04-04 14:13] LABS: INR 0.9 (<1.2); Partial Thromboplastin Time 24.2 sec (22.0-30.0); Prothrombin Time 9.8 sec (9.0-12.0)
[2021-04-04 15:19] VITALS: BP 138/78; PULSE 64; TEMP 98.3
== END 2021-04-04 15:21 | disposition home or self-care (01) ==
LOC: EC 12:22
DX: J18.9 Pneumonia, unspecified organism (principal); K21.9 Gastro-esophageal reflux disease without esophagitis; F31.9 Bipolar disorder, unspecified; F41.9 Anxiety disorder, unspecified; Z20.822 Contact with and (suspected) exposure to COVID-19; Z79.899 Other long term (current) drug therapy; Z88.1 Allergy status to other antibiotic agents; Z88.0 Allergy status to penicillin; Z90.49 Acquired absence of other specified parts of digestive tract
CPT/HCPCS: 36415; 71046; 80053; 83735; 83880; 84484; 85025; 85379; 85610; 85730; 87635; 93005; 99284

== ENCOUNTER → 2021-10-01 | Outpatient (CLI) | payer OTHER ==
--- NOTE | 2021-10-02 08:18 | US ---
EXAMINATION TYPE: US thyroid st tissue head/neck DATE OF EXAM: 10/01/2021 COMPARISON: NONE CLINICAL HISTORY: 51-year-old female E03.9 HYPOTHYROIDISM. TECHNIQUE: Multiple sonographic images of the thyroid gland are obtained. FINDINGS: GLAND SIZE: Right Lobe: 4.2 x 1.6 x 1.8 cm Overall Parenchyma: Mildly heterogenous Left Lobe: 3.6 x 1.4 x 1.3 cm Overall Parenchyma: Mildly heterogeneous Isthmus Thickness: 0.5 cm NODULES RIGHT: # of nodules measured on right: 0 LEFT: # of nodules measured on left: 0 ISTHMUS: # of nodules measured in the isthmus: 0 Dental Equipment Technician notes: Bilateral neck scanned, Left neck lymph nodes seen measurin.) 2.5 x 0.7 x 0.6cm 2.) 1.2 x 0.9 x 0.6cm These show cortices measuring up to 2.7 mm in thickness. Parathyroid not identified at this time. Bilateral mildly heterogenous thyroid without any focal nodules seen. Left neck lymph nodes seen. IMPRESSION: 1. A couple borderline sized lymph nodes along left side of the neck measuring up to 9 mm short axis. These are probably reactive/post inflammatory. Follow-up clinically to exclude any enlarging cervica l lymphadenopathy. A three-month follow-up ultrasound can also be considered. 2. Thyroid gland shows no discrete nodules. Measurements as above.
--- NOTE | 2021-10-03 09:38 | MM ---
Reason for exam: screening (asymptomatic). Last mammogram was performed 2 years and 5 months ago. History: Took hormonal contraceptives beginning at age 18. Physical Findings: A clinical breast exam by your physician is recommended on an annual basis and results should be correlated with mammographic findings. MG Screening Mammo w CAD Bilateral CC and MLO view(s) were taken. Prior study comparison: April 21, 2019, left breast MG 3d work up w/cad LT. April 12, 2019, bilateral MG screening mammo w CAD. There are scattered fibroglandular densities. There is chronic nodularity in the right breast. No significant changes when compared with prior studies. ASSESSMENT: Benign, BI-RAD 2 RECOMMENDATION: Routine screening mammogram of both breasts in 1 year.
== END | disposition home or self-care (01) ==
LOC: RADUSWWP 15:33
PROVIDERS: ATTEND Internal Medicine
DX: Z12.31 Encounter for screening mammogram for malignant neoplasm of breast (principal); E03.9 Hypothyroidism, unspecified
CPT/HCPCS: 76536; 77067

== ENCOUNTER → 2021-10-12 | Outpatient (CLI) | payer OTHER ==
--- NOTE | 2021-10-12 08:50 | US ---
EXAMINATION TYPE: US pelvis complete transvag DATE OF EXAM: 10/12/2021 COMPARISON: NONE CLINICAL HISTORY: N93.8 DUB. DUB, heavy bleeding with clots TECHNIQUE: Transvaginal (TV) and Transabdominal (TA) . Transabdominal sonographic images of the pel vis were acquired. Transvaginal sonographic images were medically necessary to better assess the fol lowing anatomy: uterus and ovaries Date of LMP: 09/15/21 EXAM MEASUREMENTS: Uterus: 7.8 x 3.8 x 5.0 cm Right Ovary: unable to visualize Left Ovary: unable to visualize 1. Uterus: Anteverted heterogeneous, difficult to penetrate 2. Endometrium: unable to clearly visualize 3. Right Ovary: Obscured by overlying bowel gas 4. Left Ovary: Obscured by overlying bowel gas 5. Bilateral Adnexa: appears wnl 6. Posterior cul-de-sac: wnl Heterogeneous anteverted uterus. Distinct endometrial stripe cannot be clearly seen suspected atrophi c on both transabdominal and transvaginal investigation. No free fluid. Neither ovary clearly seen. No suspicious extraovarian adnexal masses. IMPRESSION: Nonvisualized endometrial stripe suggested atrophic.
== END | disposition home or self-care (01) ==
LOC: RADUSWWP 07:31
PROVIDERS: ATTEND Obstetrics & Gynecology
DX: N93.8 Other specified abnormal uterine and vaginal bleeding (principal)
CPT/HCPCS: 76830; 76856

== ENCOUNTER → 2021-11-09 | Outpatient (CLI) | payer OTHER ==
--- NOTE | 2021-11-09 23:05 | MR ---
EXAMINATION TYPE: MR brain wo/w con DATE OF EXAM: 11/09/2021 COMPARISON: None HISTORY: Memory issues, right side facial/ lip numbness. CONTRAST: Standard multiplanar, multisequence MRI departmental protocol images were obtained without contrast a nd with 10 mL intravenous Gadavist gadolinium contrast. Ventricles have normal size. There is no mass effect or midline shift. There is no sign of intracrani al hemorrhage. Diffusion images show no evidence of an acute infarct. There is no evidence of cerebra l edema. Brainstem is intact. There are a few scattered white matter high signal foci up to 4 mm in t he cerebral hemispheres. Total number is approximately 10. The corpus callosum is intact. Sella turcica is intact. There is no evidence of orbital mass. IMPRESSION: Scattered multiple small white matter high signal foci are somewhat peripheral and could relate to mi crovascular ischemia. Demyelinating disease also possible. No evidence of cortical infarct.
== END | disposition home or self-care (01) ==
LOC: RADMRIMAIN 21:26
PROVIDERS: ATTEND Internal Medicine
DX: R20.0 Anesthesia of skin (principal); R41.3 Other amnesia
CPT/HCPCS: 70553; A9585

== ENCOUNTER → 2021-12-31 | Outpatient (CLI) | payer OTHER ==
[2021-12-31 19:44] LABS: Total Protein,CSF 46 mg/dL (12-60)
[2022-01-01 01:40] LABS: Appearance,CSF Clear; CSF Tube Number 4; Nucleated Cells, CSF 1 u/L (0-5); Red Blood Cell,CSF 2 u/L (0-10)
== END | disposition home or self-care (01) ==
LOC: LABWHC1 10:13
PROVIDERS: ATTEND Nurse Practitioner Family
DX: G35 Multiple sclerosis (principal)
CPT/HCPCS: 36415; 82040; 82042; 82784; 83873; 83916; 84157; 87801; 89050

== ENCOUNTER → 2022-01-17 | Outpatient (CLI) | payer OTHER ==
--- NOTE | 2022-01-17 16:05 | US ---
EXAMINATION TYPE: US thyroid st tissue head/neck DATE OF EXAM: 01/17/2022 COMPARISON: NONE CLINICAL HISTORY: R51.9 LYMPHADENOPATHY. Lymphadenopathy, Swollen lymph nodes after cold Bilateral neck scanned, two lymph nodes seen on right measuring 1.)1.2 x 0.6 x0.5cm 2.) 1.9 x 0.8 x 1 .7 cm, No obvious lymph nodes seen on left side of neck IMPRESSION: Nonenlarged normal-appearing lymph nodes. Correlate clinically.
== END | disposition home or self-care (01) ==
LOC: RADUSWWP 14:43
PROVIDERS: ATTEND Internal Medicine
DX: R59.1 Generalized enlarged lymph nodes (principal)
CPT/HCPCS: 76536

== ENCOUNTER → 2022-01-23 | Outpatient (CLI) | payer OTHER ==
[2022-01-23 18:17] LABS: Basophils # (A) 0.05 X 10*3/uL (0.00-0.10); Basophils % (A) 0.6 %; Eosinophils # (A) 0.34 X 10*3/uL (0.04-0.35); HCT 42.6 % (37.2-46.3); HGB 13.5 g/dL (12.0-15.0); Immature Grans, Automated 0.6 %; Lymphocytes # (A) 2.06 X 10*3/uL (0.90-5.00); Lymphocytes % (A) 24.5 %; MCH 28.4 pg (27.0-32.0); MCHC 31.7 g/dL (32.0-37.0); MCV 89.7 fL (80.0-97.0); Mean Platelet Volume 10.8 fL (9.5-12.2); Monocytes # (A) 0.65 X 10*3/uL (0.20-1.00); Monocytes % (A) 7.7 %; NRBC Per 100 WBC 0 /100 WBCS (0.0-0.0); Neutrophils # (A) 5.25 X 10*3/uL (1.80-7.70); Neutrophils % (A) 62.6 %; Platelet Count 290 X 10*3/uL (140-440); RBC 4.75 X 10*6/uL (4.10-5.20); RDW 13.9 % (11.5-14.5)
== END | disposition home or self-care (01) ==
LOC: LABPAT 14:33
PROVIDERS: ATTEND Obstetrics & Gynecology
DX: Z01.812 Encounter for preprocedural laboratory examination (principal)
CPT/HCPCS: 85025

== ENCOUNTER 2022-01-31 15:37 | Day surgery (SDC) | payer OTHER ==
--- NOTE | 2022-01-31 12:35 | P.HPOB ---
History of Present Illness H&P Date: 01/31/22 Chief Complaint: Dysfunctional uterine bleeding 51-year-old presents for D&C, hysteroscopy, Myosure and endometrial ablation with NovaSure due to dysfunctional uterine bleeding and abnormal endometrial cells on Pap smear. Review of Systems All systems: negative Constitutional: Denies chills, Denies fever Eyes: denies blurred vision, denies pain Ears, nose, mouth and throat: Denies headache, Denies sore throat Cardiovascular: Denies chest pain, Denies shortness of breath Respiratory: Denies cough Gastrointestinal: Denies abdominal pain, Denies diarrhea, Denies nausea, Denies vomiting Genitourinary: Denies dysuria, Denies hematuria Musculoskeletal: Denies myalgias Integumentary: Denies pruritus, Denies rash Neurological: Denies numbness, Denies weakness Psychiatric: Denies anxiety, Denies depression Endocrine: Denies fatigue, Denies weight change Past Medical History Past Medical History: GERD/Reflux, Thyroid Disorder Additional Past Medical History / Comment(s): 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 HIATAL HERNIA. heavy menses. being seen by Dr Patricio to rule out M.S. History of Any Multi-Drug Resistant Organisms: None Reported Past Surgical History: Appendectomy, Cholecystectomy, Orthopedic Surgery, Tubal Ligation Additional Past Surgical History / Comment(s): Torn ACL-Right KNEE Surgery. EGD, COLONOSCOPY Past Anesthesia/Blood Transfusion Reactions: No Reported Reaction Smoking Status: Former smoker - Past Family History Father Family Medical History: Congestive Heart Failure (CHF), Hypertension Mother Family Medical History: COPD, Thyroid Disorder Medications and Allergies Home Medications Medication Instructions Recorded Confirmed Type Levothyroxine Sodium [Synthroid] 125 mcg PO DAILY 01/02/18 01/25/22 History Sertraline [Zoloft] 100 mg PO HS 01/02/18 01/25/22 History lamoTRIgine [LaMICtal] 150 mg PO BID 05/05/19 01/25/22 History Azelastine HCl [Astepro] 1 spray EA NOSTRIL BID PRN 04/04/21 01/25/22 History Ferrous Sulfate [Feosol] 325 mg PO HS 04/04/21 01/25/22 History Fluticasone Nasal [place] [Flonase 2 spr EA NOSTRIL DAILY PRN 04/04/21 01/25/22 History Nasal [place]] Omeprazole 40 mg PO DAILY 04/04/21 01/25/22 History Allergies Allergy/AdvReac Type Severity Reaction Status Date / Time sulfamethoxazole Allergy Severe Rash/Hives Verified 01/25/22 16:02 [From Bactrim] trimethoprim [From Bactrim] Allergy Severe Rash/Hives Verified 01/25/22 16:02 amoxicillin Allergy Rash/Hives Verified 01/25/22 16:00 ceftriaxone Allergy Rash/Hives Verified 01/25/22 16:00 levofloxacin [From Levaquin] Allergy Rash/Hives Verified 01/25/22 16:00 Penicillins Allergy Rash/Hives Verified 01/25/22 16:00 Exam Osteopathic Statement: *. No significant issues noted on an osteopathic structural exam other than those noted in the History and Physical/Consult. Heart: Regular rate and rhythm Lungs: Clear to auscultation bilaterally Abdomen: Soft, nontender Extremities: Negative Homans sign Assessment and Plan (1) Dysfunctional uterine bleeding Status: Acute Code(s): N93.8 - OTHER SPECIFIED ABNORMAL UTERINE AND VAGINAL BLEEDING SNOMED Code(s): 39735051137806 (2) Endometrial cells on cervical Pap smear inconsistent w/LMP Status: Acute Code(s): R87.619 - UNSP ABNORMAL CYTOLOG FINDINGS IN SPECMN FROM CERVIX UTERI SNOMED Code(s): 064155086 Plan: 1. D&C, hysteroscopy, MyoSure and endometrial ablation with NovaSure
[~2022-01-31 15:37] MED LIST changes: +DEXAMETHASONE SOD PHOSPHATE 4 MG/ML 1 ML VIAL IV ONE; +HYDROmorphone 0.5 MG/0.5 ML SYRINGE IVP PRN; +LIDOCAINE 1% (10MG/ML) FOR IV START INTRADERMA PRN; +MIDAZOLAM 2 MG/2 ML VIAL IV PRN; +ONDANSETRON 4 MG/2 ML VIAL IVP ONE; +Pre Op ABX Message 1 EACH MISC MISCELLANE ONE
[2022-01-31 16:08] VITALS: TEMP 97.3
[2022-01-31] MEDS ORDERED: LIDOCAINE 2% INJ 20 MG/ML (2 ML VIAL) ONE (17:19)
[2022-01-31] MEDS ORDERED: PROPOFOL 10 MG/ML 20 ML VIAL IV ONE (17:19)
[2022-01-31] MEDS ORDERED: fentaNYL (PF) 50 MCG/ML 2 ML AMP ONE (17:19)
[2022-01-31] MEDS ORDERED: MIDAZOLAM 2 MG/2 ML VIAL ONE (17:19)
[2022-01-31] MEDS ORDERED: SUCCINYLCHOLINE CHLORIDE VIAL 200 MG/10 ML VIAL IV ONE (17:19)
--- NOTE | 2022-01-31 18:04 | P.OP ---
Date of Procedure: 01/31/22 Preoperative Diagnosis: 1. dysfunctional uterine bleeding Postoperative Diagnosis: 1. same Procedure(s) Performed: D&C hysteroscopy, myosure, endometrial ablation with NovaSure Anesthesia: SAL[place] Surgeon: Liliam Jameson Estimated Blood Loss (ml): 20 IV fluids (ml): 500 Urine output (ml): 15 Pathology: other (Endometrial curettings) Condition: stable Disposition: PACU Operative Findings: Smooth contour of the uterus, atrophic appearing. Both ostia visualized. Uterus sounded to 8 cm. Cavity length 6 cm, width 3 cm, power 99 W, time of ablation 57 seconds. Adequate ablation after NovaSure Description of Procedure: Patient is taken the operating room where general anesthesia was obtained without difficulty. She was prepped and draped in normal sterile fashion dorsal lithotomy position, legs placed in the candy cane stirrups. Bladder was drained of all urine. Weighted speculum placed in the vagina and the anterior lip the cervix was grasped with serial tooth tenaculum. The uterus sounded to 8cm and the cervix under 2 cm making the cavity length 6 cm. The cervix was dilated to #8 Hegar dilator. Hysteroscopy was then performed with the MyoSure hysteroscope. Both ostia were visualized and there was a smooth contour of the uterus. The endometrium appeared atrophic. I did use the myosure to obtain samples of every wall of the cavity. The NovaSure was introduced into the uterus with a cavity length of 6 cm, width 3 cm. after cavity assessment was passed, the time of ablation was 57 seconds at 99 W. Hysteroscopy was again performed and adequate ablation was noted. Fluid deficit 423 mL All instruments removed from the vagina. Patient tolerated the procedure well, sponge and instrument counts were correct 2 and she was taken to recovery in stable condition.
[2022-01-31 18:51] VITALS: RESP 16
[2022-01-31 19:14] VITALS: BP 139/40; PULSE 67
== END 2022-01-31 19:21 | disposition home or self-care (01) ==
LOC: OR 15:37
PROVIDERS: ATTEND Obstetrics & Gynecology
DX: N93.8 Other specified abnormal uterine and vaginal bleeding (principal); N85.8 Other specified noninflammatory disorders of uterus; K21.9 Gastro-esophageal reflux disease without esophagitis; E07.9 Disorder of thyroid, unspecified; Z98.51 Tubal ligation status; Z90.49 Acquired absence of other specified parts of digestive tract; G62.9 Polyneuropathy, unspecified; Z87.891 Personal history of nicotine dependence; Z82.49 Family history of ischemic heart disease and other diseases of the circulatory system; Z83.6 Family history of other diseases of the respiratory system; Z83.49 Family history of other endocrine, nutritional and metabolic diseases; Z79.890 Hormone replacement therapy; Z79.899 Other long term (current) drug therapy; Z88.2 Allergy status to sulfonamides; Z88.3 Allergy status to other anti-infective agents; Z88.0 Allergy status to penicillin; F32.A Depression, unspecified
CPT/HCPCS: 88305; 58563; J2250; J0330; J1100; J2405; J3010; J2704; J2001

== ENCOUNTER → 2022-11-15 | Outpatient (CLI) | payer OTHER ==
--- NOTE | 2022-11-18 07:13 | MM ---
Reason for Exam: Screening (asymptomatic). Last mammogram was performed 1 year(s) and 1 month(s) ago. Patient History: Menarche at age 15. First Full-Term at age 20. Postmenopausal. Hormonal Contraceptives, from age 18 until age 27. Risk Values: Basia 5 year model risk: 0.7%. NCI Lifetime model risk: 5.9%. Prior Study Comparison: 04/12/2019 Bilateral Screening Mammogram, [facility]. 04/21/2019 Left Diagnostic Mammogram, [facility]. 10/01/2021 Bilateral Screening Mammogram, [facility]. Tissue Density: There are scattered fibroglandular densities. Findings: Analyzed By CAD. There is no suspicious group of microcalcifications or new suspicious mass in either breast. Overall Assessment: Negative, BI-RAD 1 Management: Screening Mammogram of both breasts in 1 year. . Patient should continue monthly self-breast exams. A clinical breast exam by your physician is recommended on an annual basis. This exam should not preclude additional follow-up of suspicious palpable abnormalities. Note on Basia scores and lifetime risk: 1. A Basia score greater than 3% is considered moderate risk. If this is the case, consider specialist referral to assess eligibility for a risk reducing agent. 2. If overall lifetime risk for the development of breast cancer is 20% or higher, the patient may qualify for future screening with alternating mammogram and breast MRI. Electronically signed and approved by: Jorje Moseley M.D.
== END | disposition home or self-care (01) ==
LOC: RADMAMWWP 09:04
PROVIDERS: ATTEND Internal Medicine
DX: Z12.31 Encounter for screening mammogram for malignant neoplasm of breast (principal); Z78.0 Asymptomatic menopausal state
CPT/HCPCS: 77063; 77067

== ENCOUNTER → 2022-12-04 | Outpatient (CLI) | payer OTHER ==
--- NOTE | 2022-12-04 17:47 | CT ---
EXAMINATION TYPE: CT abdomen pelvis w con DATE OF EXAM: 12/04/2022 HISTORY: Lower abdominal pain x today CT DLP: 1802.7mGycm Automated Exposure Control for Dose Reduction was Utilized. CONTRAST: CT scan of the abdomen and pelvis is performed without oral but with IV Contrast, patient injected wi th 100 cc mL of Isovue 300. COMPARISON: CT abdomen and pelvis September 04, 2016 FINDINGS: LUNG BASES: No significant abnormality is appreciated. LIVER/GB: Cholecystectomy clips are redemonstrated. PANCREAS: No significant abnormality is seen. SPLEEN: No significant abnormality is seen. ADRENALS: No significant abnormality is seen. KIDNEYS: No significant abnormality is seen. BOWEL: Suboptimal evaluation without enteric contrast. No suspicious small or large bowel dilatation is seen. Surgical changes base of cecum from appendectomy are redemonstrated. Areas of mild wall thic kening in the left and sigmoid colon without significant surrounding fat stranding. UTERUS/ADNEXA: Anteverted uterus redemonstrated. LYMPH NODES: No greater than 1cm abdominal or pelvic lymph nodes are appreciated. OSSEOUS STRUCTURES: No significant abnormality is seen. OTHER: Tiny fat-containing umbilical hernia sagittal image 71. IMPRESSION: 1. No bowel obstruction. Possible mild uncomplicated distal colitis versus product of poor distention otherwise no acute findings are evident to account for patient's symptoms.
== END | disposition home or self-care (01) ==
LOC: RADCTMAIN 16:50
PROVIDERS: ATTEND Internal Medicine
DX: R10.32 Left lower quadrant pain (principal)
CPT/HCPCS: 74177; Q9967

== ENCOUNTER → 2022-12-04 | Outpatient (CLI) | payer OTHER ==
[2022-12-04 19:48] LABS: Basophils # (A) 0.06 X 10*3/uL (0.00-0.10); Basophils % (A) 0.7 %; Eosinophils # (A) 0.48 X 10*3/uL (0.04-0.35); Eosinophils % (A) 5.3 %; HCT 46.6 % (37.2-46.3); HGB 15.3 g/dL (12.0-15.0); Immature Grans, Automated 0.3 %; Lymphocytes # (A) 2.24 X 10*3/uL (0.90-5.00); Lymphocytes % (A) 24.7 %; MCH 29.1 pg (27.0-32.0); MCHC 32.8 g/dL (32.0-37.0); MCV 88.8 fL (80.0-97.0); Mean Platelet Volume 10.2 fL (9.5-12.2); Monocytes # (A) 0.74 X 10*3/uL (0.20-1.00); Monocytes % (A) 8.2 %; NRBC Per 100 WBC 0 /100 WBCS (0.0-0.0); Neutrophils # (A) 5.52 X 10*3/uL (1.80-7.70); Neutrophils % (A) 60.8 %; Platelet Count 272 X 10*3/uL (140-440); RBC 5.25 X 10*6/uL (4.10-5.20); RDW 13.7 % (11.5-14.5); WBC 9.07 X 10*3/uL (4.50-10.00)
[2022-12-05 02:15] LABS: ALT 35 U/L (8-44); AST 24 U/L (13-35); African American GFR (CKD) 118.1 (60.0-200.0); Albumin 4.2 g/dL (3.8-4.9); Albumin/Globulin Ratio 1.64 (1.60-3.17); Alkaline Phosphatase 124 U/L (41-126); BUN/Creat Ratio 21.71 Ratio (12.00-20.00); Bilirubin, Conjugated <0.20 mg/dL (0.20-0.40); Blood Urea Nitrogen 14.5 mg/dL (9.0-27.0); Calcium 9.1 mg/dL (8.7-10.3); Carbon Dioxide 25.6 mmol/L (20.0-27.5); Chloride 106 mmol/L (96-109); Globulin 2.6 g/dL (1.6-3.3); Glucose 105 mg/dL (70-110); Lipase 29 U/L (14-63); Non-African American GFR(CKD) 101.9 (60.0-200.0); Potassium 4.2 mmol/L (3.5-5.5); Sodium 143 mmol/L (135-145); Total Bilirubin <0.15 mg/dL (0.30-1.20); Total Protein 6.8 g/dL (6.2-8.2)
== END | disposition home or self-care (01) ==
LOC: LABWHC1 16:13
PROVIDERS: ATTEND Internal Medicine
DX: R10.32 Left lower quadrant pain (principal)
CPT/HCPCS: 36415; 80053; 82248; 83690; 85025

== ENCOUNTER → 2023-06-13 | Outpatient (CLI) | payer OTHER ==
--- NOTE | 2023-06-13 14:07 | XR ---
EXAMINATION TYPE: XR chest 2V DATE OF EXAM: 06/13/2023 2:03 PM CLINICAL INDICATION:Female, 52 years old with history of R06.02SHORTNESS OF BREATH Z87.01 PERSONAL HI STORY; [facility] COMPARISON: Chest radiographs from 10/07/2022 TECHNIQUE: XR chest 2V Frontal and lateral views of the chest. FINDINGS: Lungs/Pleura: There is no evidence of pleural effusion, focal consolidation, or pneumothorax. Pulmonary vascularity: Unremarkable. Heart/mediastinum: Cardiomediastinal silhouette is unremarkable. Musculoskeletal: No acute osseous pathology. IMPRESSION: No acute cardiopulmonary disease/process.
== END | disposition home or self-care (01) ==
LOC: RADXRMAIN 13:48
PROVIDERS: ATTEND Internal Medicine Sleep Medicine
DX: R06.02 Shortness of breath (principal); Z87.01 Personal history of pneumonia (recurrent)
CPT/HCPCS: 71046

== ENCOUNTER → 2023-09-05 | Outpatient (CLI) | payer OTHER ==
--- NOTE | 2023-09-05 09:41 | CT ---
EXAMINATION TYPE: CT brain wo con, CT orbits wo/w con CT DLP: 1845 mGycm, Automated exposure control for dose reduction was used. DATE OF EXAM: 09/05/2023 8:47 AM COMPARISON: 10/26/2021. CLINICAL INDICATION:Female, 53 years old with history of S09.90XA UNSPECIFIED INJURY OF HEAD, INITIAL ENCOU, Unspecified injury of head TECHNIQUE: Brain: Axial CT images of the brain were obtained with coronal and sagittal reformats created and rev iewed. Orbits: Axial imaging of the orbits with sagittal coronal reformats. Contrast used: None. Oral contrast used: None. FINDINGS: Brain: Extra-axial spaces: No abnormal extra-axial fluid collections. Ventricular system: Within normal limits Cerebral parenchyma: No acute intraparenchymal hemorrhage or mass effect. The an-white junction is well differentiated. Cerebellum: Unremarkable. Mass effect: No evidence of midline shift. Intracranial vasculature: unremarkable Soft tissues: Normal. Calvarium/osseous structures: No depressed skull fracture. Paranasal sinuses and mastoid air cells: Mild scattered paranasal sinus disease. Visualized orbits: Orbital contents are intact. The globes are intact. No evidence for orbital bone f racture. The intraconal and extra pleural fat is maintained. IMPRESSION: 1. No acute intracranial process. 2. No evidence for orbital fracture. The globes are intact. No acute facial abnormality.
== END | disposition home or self-care (01) ==
LOC: RADCTMAIN 08:00
PROVIDERS: ATTEND Internal Medicine
DX: S09.90XA Unspecified injury of head, initial encounter (principal); X58.XXXA Exposure to other specified factors, initial encounter
CPT/HCPCS: 70450; 70482; Q9967

== ENCOUNTER → 2023-11-12 | Outpatient (CLI) | payer OTHER ==
[2023-11-12 14:43] LABS: Basophils # (A) 0.05 X 10*3/uL (0.00-0.10); Basophils % (A) 0.7 %; Eosinophils # (A) 0.32 X 10*3/uL (0.04-0.35); Eosinophils % (A) 4.4 %; HCT 44.9 % (37.2-46.3); HGB 14.1 g/dL (12.0-15.0); Lymphocytes % (A) 19.4 %; MCH 27.3 pg (27.0-32.0); MCHC 31.4 g/dL (32.0-37.0); Monocytes # (A) 0.61 X 10*3/uL (0.20-1.00); Monocytes % (A) 8.5 %; NRBC Per 100 WBC 0 X 10*3/uL (0.00-0.01); Neutrophils # (A) 4.79 X 10*3/uL (1.80-7.70); Neutrophils % (A) 66.6 %; Platelet Count 293 X 10*3/uL (140-440); RBC 5.16 X 10*6/uL (4.10-5.20); RDW 14.6 % (11.5-14.5)
[2023-11-12 15:50] LABS: NT-Pro-B-Type Natriuretic Pept 53 pg/mL (0-125)
[2023-11-12 16:16] LABS: % Iron Saturation 13.35 (12.00-45.00); ALT 38 U/L (8-44); AST 27 U/L (13-35); Albumin 4.5 g/dL (3.8-4.9); Alkaline Phosphatase 137 U/L (41-126); BUN/Creat Ratio 34.57 Ratio (12.00-20.00); Blood Urea Nitrogen 24.2 mg/dL (9.0-27.0); Calcium 9.7 mg/dL (8.7-10.3); Carbon Dioxide 28.1 mmol/L (21.6-31.8); Chloride 102 mmol/L (96-109); Chol/HDL Ratio 2.88 Ratio; Glucose 113 mg/dL (70-110); Iron 51 UG/DL (50-170); LDL Cholesterol,Calculated 105.5 mg/dL (0.0-131.0); Potassium 4.1 mmol/L (3.5-5.5); Sodium 142 mmol/L (135-145); T4, Free (Free Thyroxine) 1.13 ng/dL (0.80-1.80); Total Bilirubin 0.3 mg/dL (0.3-1.2); Total Iron Binding Capacity 382 UG/DL (228-460); Total Protein 7.5 g/dL (6.2-8.2); Uric Acid 4.2 mg/dL (2.9-7.7); VLDL Calculation 16.04 mg/dL (5.00-40.00)
--- NOTE | 2023-11-13 14:24 | XR ---
EXAMINATION TYPE: XR foot complete RT DATE OF EXAM: 11/12/2023 CLINICAL HISTORY: pain TECHNIQUE: Frontal, lateral and oblique images of the right foot are obtained. COMPARISON: None. FINDINGS: There is no acute fracture/dislocation evident. The joint spaces appear within normal mchugh its. The overlying soft tissue appears unremarkable. IMPRESSION: There is no acute fracture or dislocation. ICD 10 NO FRACTURE, INITIAL EVALUATION
== END | disposition home or self-care (01) ==
LOC: LABWHC1 09:05
PROVIDERS: ATTEND Internal Medicine
DX: M79.671 Pain in right foot (principal); E03.9 Hypothyroidism, unspecified; D50.9 Iron deficiency anemia, unspecified; E55.9 Vitamin D deficiency, unspecified; R73.03 Prediabetes; R60.0 Localized edema
CPT/HCPCS: 36415; 80053; 80061; 82306; 82607; 82728; 82746; 83036; 83540; 83550; 83880; 84439; 84443; 84550; 85025

== ENCOUNTER → 2023-11-27 | Outpatient (CLI) | payer OTHER ==
--- NOTE | 2023-11-28 06:50 | CA ---
Stress Echo Report Wilma Ortiz Age: 53 Gender: F : 1970 Exam Date: 11/27/2023 10:41 Exam Location: [facility] Ht (in): 60 Wt (lb): 230 Ordering Physician: Neal Jacobs DO Referring Physician: Neal Jacobs DO Insurance Producer: sAtrid Scott RDCS Technologist Procedure CPT: Indication: R60.0 LOCALIZED EDEMA ICD-9 Codes: Rhythm: Patient History: TAYO, PALP, FAMILY HX, HTN, Cardiac Medications: SEE LIST Medications in past 24 hours: Contrast: Stress Results Protocol: Scar Total dose(mL): Exercise Duration (min:sec): 6:[address] Depression (mm): Angina Score: Ramirez Score: METS: 7.1 Resting HR: 65 Resting BP: 130 / 83 Peak HR: 147 Peak BP: 217 / 69 Max Predicted HR: 168 88 % Max Predicted HR Target HR: 143 Double Product: 26250 Stress Summary: BP Response: Reason for Termination: Reached target heart rate or work-load, Maximal effort/unable to continue Cardiac Symptoms: ASYMPTOMATIC ECG Analysis Resting ECG: Stress ECG: Arrhythmia: Echo Analysis Resting Echo: Peak Echo Analysis: MEASUREMENTS (Male/Female) Normal Values CONCLUSIONS Good exercise tolerance Normal electrocardiogram and echocardiogram in response to exercise Dr. Yossi Alfaro MD (Electronically Signed) Final Date: 28 Nov 2023 06:49
== END | disposition home or self-care (01) ==
LOC: RADNMMAIN 09:16
PROVIDERS: ATTEND Internal Medicine
DX: R60.0 Localized edema (principal)
CPT/HCPCS: 93351

== ENCOUNTER → 2023-12-18 | Outpatient (CLI) | payer OTHER ==
--- NOTE | 2023-12-19 13:00 | MM ---
Reason for Exam: Screening (asymptomatic). Last mammogram was performed 1 year(s) and 1 month(s) ago. Patient History: Menarche at age 15. First Full-Term at age 20. Postmenopausal. Hormonal Contraceptives, from age 18 until age 27. Risk Values: Basia 5 year model risk: 0.7%. NCI Lifetime model risk: 5.8%. Prior Study Comparison: 04/21/2019 Left Diagnostic Mammogram, [facility]. 10/01/2021 Bilateral Screening Mammogram, [facility]. 11/15/2022 Bilateral MG 3D screening mammo w/cad, [facility]. Tissue Density: There are scattered areas of fibroglandular density. Findings: Analyzed By CAD. The pattern is symmetrical. Pattern is stable No suspicious groups of microcalcifications, spiculated or lobular masses, architectural distortion or other secondary signs of malignancy are mammographically apparent. Overall Assessment: Benign, BI-RAD 2 Management: Screening Mammogram of both breasts in 1 year. A negative mammogram report should not preclude additional follow up of suspicious palpable abnormalities. Patient should continue monthly self breast exam. A clinical breast exam by your physician is recommended on an annual basis and results should be correlated with mammographic findings. Note on Basia scores and lifetime risk: 1. A Basia score greater than 3% is considered moderate risk. If this is the case, consider specialist referral to assess eligibility for a risk reducing agent. 2. If overall lifetime risk for the development of breast cancer is 20% or higher, the patient may qualify for future screening with alternating mammogram and breast MRI. Electronically signed and approved by: Khari Lanier D.O. Radiologis
== END | disposition home or self-care (01) ==
LOC: RADMAMWWP 10:18
PROVIDERS: ATTEND Internal Medicine
DX: Z12.31 Encounter for screening mammogram for malignant neoplasm of breast (principal); Z78.0 Asymptomatic menopausal state
CPT/HCPCS: 77063; 77067

== ENCOUNTER → 2024-03-26 | Outpatient (CLI) | payer OTHER ==
[2024-03-26 16:38] LABS: HCT 44.3 % (37.2-46.3); HGB 13.8 g/dL (12.0-15.0); MCH 28.3 pg (27.0-32.0); MCHC 31.2 g/dL (32.0-37.0); Mean Platelet Volume 10.3 FL (9.5-12.2); NRBC Per 100 WBC 0 X 10*3/uL (0.00-0.01); Platelet Count 264 X 10*3/uL (140-440); RBC 4.87 X 10*6/uL (4.10-5.20); RDW 15.2 % (11.5-14.5); WBC 7.23 X 10*3/uL (4.50-10.00)
[2024-03-26 16:39] LABS: Basophils # (A) 0.05 X 10*3/uL (0.00-0.10); Basophils % (A) 0.7 %; Eosinophils # (A) 0.38 X 10*3/uL (0.04-0.35); Eosinophils % (A) 5.3 %; Lymphocytes # (A) 1.51 X 10*3/uL (0.90-5.00); Lymphocytes % (A) 20.9 %; Monocytes # (A) 0.54 X 10*3/uL (0.20-1.00); Monocytes % (A) 7.5 %; Neutrophils # (A) 4.71 X 10*3/uL (1.80-7.70)
[2024-03-26 17:00] LABS: Erythrocyte Sedimentation Rate 48 mm/Hr (0-30)
[2024-03-26 17:20] LABS: T4, Free (Free Thyroxine) 1.16 ng/dL (0.80-1.80)
== END | disposition home or self-care (01) ==
LOC: LABWHC1 08:37
PROVIDERS: ATTEND Internal Medicine
DX: E03.9 Hypothyroidism, unspecified (principal); R73.03 Prediabetes; R31.9 Hematuria, unspecified
CPT/HCPCS: 36415; 83036; 84439; 84443; 85025; 85652; 86140

== ENCOUNTER 2024-04-09 09:24 | Day surgery (SDC) | payer OTHER ==
[~2024-04-09 09:24] MED LIST changes: -DEXAMETHASONE SOD PHOSPHATE 4 MG/ML 1 ML VIAL IV ONE; -LACTATED RINGERS 1,000 ML IV SCH; -LIDOCAINE 1% (10MG/ML) FOR IV START INTRADERMA PRN; -ONDANSETRON 4 MG/2 ML VIAL IVP ONE
[2024-04-09 09:58] VITALS: TEMP 97.2
[2024-04-09] MEDS: IV FLUID CONTINUATION 1,000 ML IV ONE (10:05)
[2024-04-09] MEDS: ONDANSETRON 4 MG/2 ML VIAL IVP ONE (10:07)
[2024-04-09] MEDS: DEXAMETHASONE SOD PHOSPHATE 4 MG/ML 1 ML VIAL IV ONE (10:07)
[2024-04-09] MEDS: LACTATED RINGERS 1,000 ML IV SCH (10:08)
[2024-04-09] MEDS: SCOPOLAMINE 1 MG/72 HR PATCH TRANSDERM ONE (10:16)
[2024-04-09 10:18] LABS: Glucose,Whole Blood 101 mg/dL (70-110)
[2024-04-09] MEDS ORDERED: fentaNYL (PF) 50 MCG/ML 2 ML AMP ONE (10:50)
[2024-04-09] MEDS ORDERED: MIDAZOLAM 2 MG/2 ML VIAL ONE (10:50)
[2024-04-09] MEDS ORDERED: LIDOCAINE 1% INJ 10MG/ML (20 ML MDV) ONE (10:50)
[2024-04-09] MEDS ORDERED: KETAMINE HCL IN 0.9 % NACL 50 MG/5 ML SYRINGE ONE (10:50)
[2024-04-09] MEDS ORDERED: PROPOFOL 10 MG/ML 20 ML VIAL IV ONE (10:50)
[2024-04-09] MEDS: LIDOCAINE 1% INJ 10MG/ML (20 ML MDV) SQ ONE ×2 (11:14)
[2024-04-09 11:48] VITALS: RESP 16
--- NOTE | 2024-04-09 11:53 | P.OP ---
Date of Procedure: 04/09/24 Description of Procedure: Preoperative diagnosis: Headaches, rule out temporal arteritis Postoperative diagnosis: Same Procedure: Left temporal artery biopsy Surgeon: Karen Barr D.O. EBL: Less than 5 mL IV fluids: See anesthesia records Urine output: Not measured Drains: None Complications: None immediately apparent Condition: Stable to recovery Operative indication and findings: Patient is a 53-year-old female who recently began having increasing and worsening headaches. Through the evaluation and workup was recommended undergo temporal artery biopsy. Risks and benefits were discussed. They present for intervention today. Procedure in detail: The patient was taken to the operative suite and placed in supine position. The side of the face was prepped and draped in usual sterile fashion. A preprocedure timeout was performed, all parties are in agreement. The area of the greatest pulse was anesthetized at the temporal region. Incision was made and carried onto the subcuticular tissue using electrocautery. The artery was identified. It was dissected free proximally and distally. It was ligated with 4-0 silk ties. The 1.5 cm portion of the artery was excised and sent for pathology. The area was then irrigated. Hemostasis was achieved electrocautery. The deep dermal tissues were reapproximated with interrupted sutures of 3-0 Vicryl. The skin was reprepped with running 5-0 Monocryl in subcu cuticular fashion. Gluewas placed the patient was transferred to recovery in stable condition having tolerated the procedure well. Plan - Discharge Summary Discharge Rx Participant: No New Discharge Prescriptions: No Action Sertraline [Zoloft] 100 mg PO HS Levothyroxine Sodium [Synthroid] 125 mcg PO DAILY lamoTRIgine [LaMICtal] 150 mg PO BID predniSONE [Deltasone] 20 mg PO BID amLODIPine BESYLATE 5 mg PO BID Aspirin [Adult Low Dose Aspirin EC] 81 mg PO DAILY Omeprazole 40 mg PO DAILY Fluticasone Nasal [place] [Flonase Nasal [place]] 2 spr EA NOSTRIL DAILY PRN PRN Reason: Allergy Symptoms Ferrous Sulfate [Feosol] 325 mg PO HS Ibuprofen [Motrin] 600 mg PO Q6HR PRN #30 tab PRN Reason: Mild Pain Or Fever >= 100.5 Discharge Medication List Levothyroxine Sodium [Synthroid] 125 mcg PO DAILY 01/02/18 [History] Sertraline [Zoloft] 100 mg PO HS 01/02/18 [History] lamoTRIgine [LaMICtal] 150 mg PO BID 05/05/19 [History] Ferrous Sulfate [Feosol] 325 mg PO HS 04/04/21 [History] Fluticasone Nasal [place] [Flonase Nasal [place]] 2 spr EA NOSTRIL DAILY PRN 04/04/21 [History] Omeprazole 40 mg PO DAILY 04/04/21 [History] Ibuprofen [Motrin] 600 mg PO Q6HR PRN #30 tab 01/31/22 [Rx] Aspirin [Adult Low Dose Aspirin EC] 81 mg PO DAILY 04/08/24 [History] amLODIPine BESYLATE 5 mg PO BID 04/08/24 [History] predniSONE [Deltasone] 20 mg PO BID 04/08/24 [History] Follow up Appointment(s)/Referral(s): Karen Barr DO [STAFF PHYSICIAN] - 2 Weeks Patient Instructions/Handouts: *Surgery [facility] - Scopalamine Patch Instructions Activity/Diet/Wound Care/Special Instructions: Resume regular diet. Resume regular activity. Resume medications as previously ordered. May use [id number] medications for pain control. May use ice. May shower starting tomorrow, be gentle with hair washing Discharge Disposition: HOME SELF-CARE
[2024-04-09 12:01] VITALS: BP 133/76; PULSE 65
== END 2024-04-09 12:30 | disposition home or self-care (01) ==
LOC: OR 09:24
PROVIDERS: ATTEND Surgery
DX: R51.9 Headache, unspecified
CPT/HCPCS: 81025; 88305

== ENCOUNTER → 2024-04-15 | Outpatient (CLI) | payer OTHER ==
[2024-04-15 15:51] LABS: T4, Free (Free Thyroxine) 1.08 ng/dL (0.80-1.80)
== END | disposition home or self-care (01) ==
LOC: LABWHC1 08:35
PROVIDERS: ATTEND Internal Medicine
DX: E03.8 Other specified hypothyroidism (principal)
CPT/HCPCS: 36415; 84439; 84443

== ENCOUNTER 2024-10-22 23:47 | Emergency (ER) | payer OTHER ==
[2024-10-23] MEDS: DEXAMETHASONE SOD PHOSPHATE 10 MG/ML 1 ML VIAL IV STA (00:56)
[2024-10-23 01:11] LABS: Basophils # (A) 0.1 k/uL (0-0.2); Basophils % (A) 0 %; Eosinophils # (A) 0.2 k/uL (0-0.7); Eosinophils % (A) 2 %; HCT 47.1 % (34.0-46.0); HGB 15.5 gm/dL (11.4-16.0); Lymphocytes # (A) 1.2 k/uL (1.0-4.8); Lymphocytes % (A) 10 %; MCH 27.8 pg (25.0-35.0); MCHC 32.8 g/dL (31.0-37.0); MCV 84.8 fL (80.0-100.0); Mean Platelet Volume 7.9; Monocytes # (A) 0.8 k/uL (0-1.0); Monocytes % (A) 7 %; Neutrophils # (A) 9.2 k/uL (1.3-7.7); Neutrophils % (A) 79 %; Platelet Count 237 k/uL (150-450); RBC 5.56 m/uL (3.80-5.40); RDW 14.9 % (11.5-15.5); WBC 11.6 k/uL (3.8-10.6)
[2024-10-23 01:32] LABS: Influenza A Not Detected (Not Detectd); Influenza B Not Detected (Not Detectd); RSV Not Detected (Not Detectd)
[2024-10-23 01:37] VITALS: RESP 16; TEMP 98.3
--- NOTE | 2024-10-23 01:39 | ED ---
General Adult HPI - General Chief complaint: Neck Pain/Injury Stated complaint: Neck Pain Time Seen by Provider: 10/23/24 00:18 Source: patient, RN notes reviewed, old records reviewed Mode of arrival: ambulatory Limitations: no limitations - History of Present Illness Initial comments: 54-year-old female with right-sided neck pain pain has been persistent for the past several days. Patient has seen her primary care provider who is given Toradol and meloxicam. Patient states that this did not improve her pain she has had pain with any movement of the neck and this is predominantly on the right side. No chest pain no difficulty breathing. No injury. - Related Data Home Medications Medication Instructions Recorded Confirmed Levothyroxine Sodium [Synthroid] 125 mcg PO DAILY 01/02/18 04/08/24 Sertraline [Zoloft] 100 mg PO HS 01/02/18 04/08/24 lamoTRIgine [LaMICtal] 150 mg PO BID 05/05/19 04/08/24 Ferrous Sulfate [Feosol] 325 mg PO HS 04/04/21 04/08/24 Fluticasone Nasal [place] [Flonase 2 spr EA NOSTRIL DAILY PRN 04/04/21 04/09/24 Nasal [place]] Omeprazole 40 mg PO DAILY 04/04/21 04/08/24 Aspirin [Adult Low Dose Aspirin EC] 81 mg PO DAILY 04/08/24 04/09/24 amLODIPine BESYLATE 5 mg PO BID 04/08/24 04/08/24 predniSONE [Deltasone] 20 mg PO BID 04/08/24 04/08/24 Previous Rx's Medication Instructions Recorded Ibuprofen [Motrin] 600 mg PO Q6HR PRN #30 tab 01/31/22 Cyclobenzaprine [Flexeril] 10 mg PO HS PRN #7 tab 10/23/24 HYDROcodone/APAP 5-325MG [[place] 1 tab PO Q6HR PRN #12 tab 10/23/24 5-325] Allergies Allergy/AdvReac Type Severity Reaction Status Date / Time sulfamethoxazole Allergy Severe Rash/Hives Verified 10/23/24 00:04 [From Bactrim] trimethoprim [From Bactrim] Allergy Severe Rash/Hives Verified 10/23/24 00:04 amoxicillin Allergy Rash/Hives Verified 10/23/24 00:04 ceftriaxone Allergy Rash/Hives Verified 10/23/24 00:04 levofloxacin [From Levaquin] Allergy Rash/Hives Verified 10/23/24 00:04 Penicillins Allergy Rash/Hives Verified 10/23/24 00:04 Review of Systems ROS Statement: Those systems with pertinent positive or pertinent negative responses have been documented in the HPI. ROS Other: All systems not noted in ROS Statement are negative. 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 HIATAL HERNIA. Headache x 10 days. History of Any Multi-Drug Resistant Organisms: None Reported Past Surgical History: Appendectomy, Cholecystectomy, Orthopedic Surgery, Tubal Ligation, Uterine Ablation Additional Past Surgical History / Comment(s): Torn ACL-Right KNEE Surgery. EGD, COLONOSCOPY Past Anesthesia/Blood Transfusion Reactions: No Reported Reaction Past Psychological History: Anxiety, Bipolar, Depression Smoking Status: Former smoker Past Alcohol Use History: None Reported Past Drug Use History: None Reported - Past Family History Father Family Medical History: Congestive Heart Failure (CHF), Hypertension Mother Family Medical History: COPD, Thyroid Disorder General Exam Limitations: no limitations General appearance: alert, in no apparent distress Head exam: Present: atraumatic, normocephalic Eye exam: Present: normal appearance, PERRL ENT exam: Present: normal exam Neck exam: Present: tenderness (rt Paraspinal and trapezius). Absent: m eningismus, full ROM Respiratory exam: Present: normal lung sounds bilaterally. Absent: respiratory distress, wheezes Cardiovascular Exam: Present: regular rate, normal rhythm GI/Abdominal exam: Present: soft. Absent: distended, tenderness Extremities exam: Present: normal inspection, normal capillary refill Neurological exam: Present: alert, oriented X3, CN II-XII intact. Absent: motor sensory deficit Psychiatric exam: Present: normal affect, normal mood Skin exam: Present: warm, dry, intact. Absent: cyanosis, diaphoretic Course Vital Signs 10/23/24 10/23/24 10/23/24 00:00 01:36 02:19 Temperature 99.7 F H 98.3 F Pulse Rate 80 67 83 Respiratory 18 16 16 Rate Blood Pressure 157/93 143/90 141/87 O2 Sat by Pulse 99 97 97 Oximetry Medical Decision Making - Medical Decision Making Was pt. sent in by a medical professional or institution (MIRYAM Boucher, LEARNING OFFICER, urgent care, hospital, or shelter...) When possible be specific @ -No Did you speak to anyone other than the patient for history (EMS, parent, family, police, friend...)? What history was obtained from this source @ -No Did you review nursing and triage notes (agree or disagree)? Why? @ -I reviewed and agree with nursing and triage notes Were old charts reviewed (outside hosp., previous admission, EMS record, old EKG, old radiological studies, urgent care reports/EKG's, shelter records)? Report findings @ -No old charts were reviewed Differential Musculoskeletal Muscular strain, contusion, ligament sprain, fracture, arthritis, septic arthritis, bursitis, cellulitis, muscle spasm, nerve compression, DVT, arterial occlusion, herpes zoster, electrolyte abnormality, tumor.... This is not meant to be in all inclusive list EKG interpreted by me (3pts min.). @ -As above X-rays interpreted by me (1pt min.). @ -None done CT interpreted by me (1pt min.). @ -None done U/S interpreted by me (1pt. min.). @ -None done What testing was considered but not performed or refused? (CT, X-rays, U/S, labs)? Why? @ -None What meds were considered but not given or refused? Why? @ -None Did you discuss the management of the patient with other professionals (professionals i.e. MIRYAM Boucher, LEARNING OFFICER, lab, RT, psych nurse, social service assistant, chief administrative officer, teacher, community liaison officer, rn case management)? Give summary @ -No Was smoking cessation discussed for >3mins.? @ -No Was critical care preformed (if so, how long)? @ -No Were there social determinants of health that impacted care today? How? (Homelessness, low income, unemployed, alcoholism, drug addiction, transportation, low edu. Level, literacy, decrease access to med. care, skilled nursing, r ehab)? @ -No Was there de-escalation of care discussed even if they declined (Discuss DNR or withdrawal of care, Hospice)? DNR status @ -No What co-morbidities impacted this encounter? (DM, HTN, Smoking, COPD, CAD, Cancer, CVA, ARF, Chemo, Hep., AIDS, mental health diagnosis, sleep apnea, morbid obesity)? @ -None Was patient admitted / discharged? Hospital course, mention meds given and route, prescriptions, significant lab abnormalities, going to OR and other pertinent info. @54-year-old female with neck pain worse with movement, no injury. Exam consistent with torticollis with paraspinal and trapezius spasm. Patient is otherwise well-appearing stable vitals. No symptoms into the chest including chest pain or dyspnea. Patient has initial CMP which is abnormal but this was likely from a abnormal blood draw repeat is normal. Patient given pain medication emergency department with improvement in symptoms. Should be placed on a muscle relaxer and [place] for significant pain. She is currently on meloxicam. Undiagnosed new problem with uncertain prognosis? @ -No Drug Therapy requiring intensive monitoring for toxicity (Heparin, Nitro, Insulin, Cardizem)? @ -No Were any procedures done? @ -No Diagnosis/symptom? @ -Torticollis Acute, or Chronic, or Acute on Chronic? @ -Acute Uncomplicated (without systemic symptoms) or Complicated (systemic symptoms)? @ -Default Side effects of treatment? @ -No Exacerbation, Progression, or Severe Exacerbation? @ -No Poses a threat to life or bodily function? How? (Chest pain, [place], [place], pneumonia, PE, COPD, DKA, ARF, appy, cholecystitis, CVA, Diverticulitis, Homicidal, Suicidal, threat to staff... and all critical care pts) @ -No - Lab Data Result diagrams: 10/23/24 00:45 10/23/24 01:56 Lab Results 10/23/24 10/23/24 10/23/24 Range/Units 00:45 00:45 01:20 WBC 11.6 H (3.8-10.6) k/uL RBC 5.56 H (3.80-5.40) m/uL Hgb 15.5 (11.4-16.0) gm/dL Hct 47.1 H (34.0-46.0) % MCV 84.8 (80.0-100.0) fL MCH 27.8 (25.0-35.0) pg MCHC 32.8 (31.0-37.0) g/dL RDW 14.9 (11.5-15.5) % Plt Count 237 (150-450) k/uL MPV 7.9 Neutrophils % 79 % Lymphocytes % 10 % Monocytes % 7 % Eosinophils % 2 % Basophils % 0 % Neutrophils # 9.2 H (1.3-7.7) k/uL Lymphocytes # 1.2 (1.0-4.8) k/uL Monocytes # 0.8 (0-1.0) k/uL Eosinophils # 0.2 (0-0.7) k/uL Basophils # 0.1 (0-0.2) k/uL Sodium 148 H (137-145) mmol/L Potassium 2.7 L* (3.5-5.1) mmol/L Chloride 115 H (98-107) mmol/L Carbon Dioxide 20 L (22-30) mmol/L Anion Gap 13 mmol/L BUN 13 (7-17) mg/dL Creatinine 0.42 L (0.52-1.04) mg/dL Est GFR (CKD-EPI)AfAm >90 (>60 ml/min/1.73 sqM) Est GFR (CKD-EPI)NonAf >90 (>60 ml/min/1.73 sqM) Glucose 83 (74-99) mg/dL Calcium 6.1 L* (8.4-10.2) mg/dL Magnesium (1.6-2.3) mg/dL Total Bilirubin 0.3 (0.2-1.3) mg/dL AST 18 (14-36) U/L ALT 19 (4-34) U/L Alkaline Phosphatase 99 (38-126) U/L Total Protein 4.9 L (6.3-8.2) g/dL Albumin 2.6 L (3.5-5.0) g/dL Influenza Type A (PCR) Not Detected (Not Detectd) Influenza Type B (PCR) Not Detected (Not Detectd) RSV (PCR) Not Detected (Not Detectd) SARS-CoV-2 (PCR) Not Detected (Not Detectd) 10/23/24 Range/Units 01:56 WBC (3.8-10.6) k/uL RBC (3.80-5.40) m/uL Hgb (11.4-16.0) gm/dL Hct (34.0-46.0) % MCV (80.0-100.0) fL MCH (25.0-35.0) pg MCHC (31.0-37.0) g/dL RDW (11.5-15.5) % Plt Count (150-450) k/uL MPV Neutrophils % % Lymphocytes % % Monocytes % % Eosinophils % % Basophils % % Neutrophils # (1.3-7.7) k/uL Lymphocytes # (1.0-4.8) k/uL Monocytes # (0-1.0) k/uL Eosinophils # (0-0.7) k/uL Basophils # (0-0.2) k/uL Sodium 138 (137-145) mmol/L Potassium 4.1 (3.5-5.1) mmol/L Chloride 101 (98-107) mmol/L Carbon Dioxide 27 (22-30) mmol/L Anion Gap 10 mmol/L BUN 18 H (7-17) mg/dL Creatinine 0.67 (0.52-1.04) mg/dL Est GFR (CKD-EPI)AfAm >90 (>60 ml/min/1.73 sqM) Est GFR (CKD-EPI)NonAf >90 (>60 ml/min/1.73 sqM) Glucose 126 H (74-99) mg/dL Calcium 9.4 (8.4-10.2) mg/dL Magnesium 1.9 (1.6-2.3) mg/dL Total Bilirubin 0.5 (0.2-1.3) mg/dL AST 26 (14-36) U/L ALT 31 (4-34) U/L Alkaline Phosphatase 152 H (38-126) U/L Total Protein 7.6 (6.3-8.2) g/dL Albumin 4.5 (3.5-5.0) g/dL Influenza Type A (PCR) (Not Detectd) Influenza Type B (PCR) (Not Detectd) RSV (PCR) (Not Detectd) SARS-CoV-2 (PCR) (Not Detectd) Disposition Clinical Impression: Acute torticollis Disposition: HOME SELF-CARE Condition: Fair Instructions (If sedation given, give patient instructions): Spasmodic Torticollis (ED) Prescriptions: Cyclobenzaprine [Flexeril] 10 mg PO HS PRN #7 tab PRN Reason: Muscle Spasm HYDROcodone/APAP 5-325MG [[place] 5-325] 1 tab PO Q6HR PRN #12 tab PRN Reason: Pain Is patient prescribed a controlled substance at d/c from ED?: No Referrals: Neal Jacobs DO [Primary Care Provider] - 1-2 days Time of Disposition: 02:58
[2024-10-23] MEDS: HYDROmorphone 0.5 MG/0.5 ML SYRINGE IVP STA (01:44)
[2024-10-23 01:45] LABS: ALT 19 U/L (4-34); AST 18 U/L (14-36); African American GFR (CKD) >90 (>60 ml/min/1.73 sqM); Albumin 2.6 g/dL (3.5-5.0); Alkaline Phosphatase 99 U/L (38-126); Anion Gap 13 mmol/L; Blood Urea Nitrogen 13 mg/dL (7-17); Carbon Dioxide 20 mmol/L (22-30); Chloride 115 mmol/L (98-107); Glucose 83 mg/dL (74-99); Non-African American GFR(CKD) >90 (>60 ml/min/1.73 sqM); Sodium 148 mmol/L (137-145); Total Bilirubin 0.3 mg/dL (0.2-1.3); Total Protein 4.9 g/dL (6.3-8.2)
[2024-10-23 01:47] LABS: Calcium 6.1 mg/dL (8.4-10.2); Potassium 2.7 mmol/L (3.5-5.1)
[2024-10-23 02:22] LABS: ALT 31 U/L (4-34); AST 26 U/L (14-36); African American GFR (CKD) >90 (>60 ml/min/1.73 sqM); Albumin 4.5 g/dL (3.5-5.0); Alkaline Phosphatase 152 U/L (38-126); Anion Gap 10 mmol/L; Blood Urea Nitrogen 18 mg/dL (7-17); Calcium 9.4 mg/dL (8.4-10.2); Carbon Dioxide 27 mmol/L (22-30); Chloride 101 mmol/L (98-107); Glucose 126 mg/dL (74-99); Magnesium 1.9 mg/dL (1.6-2.3); Non-African American GFR(CKD) >90 (>60 ml/min/1.73 sqM); Potassium 4.1 mmol/L (3.5-5.1); Sodium 138 mmol/L (137-145); Total Bilirubin 0.5 mg/dL (0.2-1.3); Total Protein 7.6 g/dL (6.3-8.2)
[2024-10-23] MEDS: ACETAMINOPHEN TAB 500 MG TAB PO STA (02:31)
[2024-10-23] MEDS: KETOROLAC 15 MG/ML 1 ML VIAL IVP STA (02:32)
[2024-10-23 03:01] VITALS: BP 140/64; PULSE 76
== END 2024-10-23 03:06 | disposition home or self-care (01) ==
LOC: EC 23:47
DX: M43.6 Torticollis (principal); Z87.891 Personal history of nicotine dependence; Z88.0 Allergy status to penicillin; Z88.1 Allergy status to other antibiotic agents; Z88.2 Allergy status to sulfonamides; Z88.8 Allergy status to other drugs, medicaments and biological substances
CPT/HCPCS: 36415; 80053; 83735; 85025; 87636; 99283; 96374; 96375; J1100; J3360; J1885; J1171

== ENCOUNTER → 2024-12-06 | Outpatient (CLI) | payer OTHER ==
[2024-12-06 16:59] LABS: Basophils # (A) 0.06 X 10*3/uL (0.00-0.10); Basophils % (A) 0.9 %; Eosinophils # (A) 0.36 X 10*3/uL (0.04-0.35); Eosinophils % (A) 5.2 %; HCT 44.9 % (37.2-46.3); HGB 14.3 g/dL (12.0-15.0); Lymphocytes # (A) 1.83 X 10*3/uL (0.90-5.00); Lymphocytes % (A) 26.4 %; MCHC 31.8 g/dL (32.0-37.0); Mean Platelet Volume 10.1 FL (9.5-12.2); Monocytes # (A) 0.56 X 10*3/uL (0.20-1.00); Monocytes % (A) 8.1 %; NRBC Per 100 WBC 0 X 10*3/uL (0.00-0.01); Neutrophils # (A) 4.07 X 10*3/uL (1.80-7.70); Neutrophils % (A) 58.7 %; Platelet Count 285 X 10*3/uL (140-440); RDW 14.7 % (11.5-14.5); WBC 6.93 X 10*3/uL (4.50-10.00)
[2024-12-06 17:44] LABS: % Iron Saturation 15.66 (12.00-45.00); ALT 32 U/L (8-44); AST 24 U/L (13-35); Albumin 4.3 g/dL (3.8-4.9); Albumin/Globulin Ratio 1.59 Ratio (1.60-3.17); Alkaline Phosphatase 148 U/L (41-126); BUN/Creat Ratio 26.71 Ratio (12.00-20.00); Blood Urea Nitrogen 18.7 mg/dL (9.0-27.0); Calcium 9.1 mg/dL (8.7-10.3); Chloride 104 mmol/L (96-109); Globulin 2.7 g/dL (1.6-3.3); Glucose 109 mg/dL (70-110); Iron 52 UG/DL (50-170); Magnesium 1.8 mg/dL (1.5-2.4); Potassium 3.9 mmol/L (3.5-5.5); Sodium 142 mmol/L (135-145); Total Bilirubin 0.3 mg/dL (0.3-1.2); Total Iron Binding Capacity 332 UG/DL (228-460)
== END | disposition home or self-care (01) ==
LOC: LABWHC1 12:41
PROVIDERS: ATTEND Internal Medicine
DX: I10 Essential (primary) hypertension (principal); E55.9 Vitamin D deficiency, unspecified; E03.9 Hypothyroidism, unspecified; D50.9 Iron deficiency anemia, unspecified; R73.03 Prediabetes
CPT/HCPCS: 36415; 80053; 80061; 82306; 82607; 82728; 82746; 83036; 83540; 83550; 83735; 84439; 84443; 85025